=== PATIENT | male | born 1940 | race Caucasian/White ===

== ENCOUNTER → 2020-12-29 10:26 | Outpatient (CLI) | payer MEDICARE, OTHER, SELFPAY ==
--- NOTE | 2020-12-29 10:32 | STE_ITS ---
Version 2 Reason For Study: Chest Pain Stress Results Protocol: Eloy Protocol Maximum Predicted HR: 138 bpm Target HR: 117 bpm % Maximum Predicted HR: 91 % DurationHeart Rate Stage (mm:ss) (bpm) BP Comment Baseline 61 114/80No Chest Pain [facility]oy Protocol Stage I 3:00 86 124/76No Chest Pain Eloy Protocol Stage II 3:00 120 134/72No Chest Pain; Moderate Dyspnea Eloy Protocol Stage III 0:30 126 / No Chest Pain; Moderate Dyspnea Recovery 96 130/78No Chest Pain; No Dyspnea Stress Duration: 6:30 mm:ss Maximum Stress HR: 126 bpm METS: 8 Baseline Echocardiogram Findings The estimated ejection fraction is 55 %. post stress EF is 65%. Stress Echo Wall motion Data Resting WM Intermediate WM Stress WM Resting Wall Motion Wall Motion Stress No regional wall motion No regional wall motion abnormalities noted. abnormalities noted. EKG Data The baseline ECG displays normal sinus rhythm. No significant ischemic changes. Symptoms with Stress The patient experinced no chest pain . ECHO/Stress Test Echo w/o Contrast Interpretation Summary The estimated ejection fraction is 55 %. Stress echo is negative for stress induced CP or EKG or echocardiographic dalal es of ischemia Functional capacity is excellent for age Ordering Physician: Levar Tran Referring Physician: Alvina Castillo Performed By: Alicja Badillo, RDCS, RVT
== END ==
PROVIDERS: PCP Internal Medicine; Referring Provider Internal Medicine; Visit Provider Internal Medicine
DX: R07.9 Chest pain, unspecified (principal)
CPT/HCPCS: 93017; 93350

== ENCOUNTER 2021-09-17 14:48 | Emergency (ER) | payer MEDICARE, OTHER, SELFPAY ==
[2021-09-17] VITALS (7 sets, daily range): BP systolic 117–170; BP diastolic 85–103; PULSE 65–84; RESP 13–18; TEMP 36.3–36.9; O2SAT 96–98; BMI 25.1
--- NOTE | 2021-09-17 14:51 | NURSING ---
NO OLD EKGS
--- NOTE | 2021-09-17 15:08 | EKG12_ITS ---
Test Reason : CP Blood Pressure : / mmHG Vent. Rate : 067 BPM Atrial Rate : 067 BPM P-R Int : 176 ms QRS Dur : 082 ms QT Int : 404 ms P-R-T Axes : 081 -52 -13 degrees QTc Int : 426 ms Normal sinus rhythm with sinus arrhythmia Left anterior fascicular block Abnormal ECG Confirmed by IRINEO BERNARDO, CLEVELAND ([id number]), non linear editor WALKER ERAZO ([id number]) on 09/19/2021 9:20:19 AM Referred By: LIVIA Confirmed By:CLEVELAND CABELLO MD
--- NOTE | 2021-09-17 15:20 | RAD_ITS ---
STUDY: X-RAY CHEST REASON FOR EXAM: Male, 81 years old. Chest pain TECHNIQUE: Single AP portable view of the chest. COMPARISON: None. FINDINGS: There is a battery operated device overlying the left chest. The lungs are clear and expanded. There is no demonstrated pleural abnormality. There is mild to moderate cardiac enlargement. Normal mediastinum and michelle. Normal visualized pulmonary arteries. There is atherosclerotic calcification of the aortic arch with tortuosity. There are diffuse degenerative changes of the visualized thoracic spine. Normal visualized ribs, clavicles, and shoulders. There is no demonstrated abnormality of the visualized soft tissue structures of the upper abdomen. RAD/Chest 1 View (Portable) IMPRESSION: Cardiac enlargement no visualized focal infiltrate. Electronically Signed: Julieta Day MD at 15:48 EST ,
--- NOTE | 2021-09-17 15:36 | ED.VIS.CHEST ---
HPI History of Present Illness Chief Complaint: Chest Pain Informant: patient Onset/Context/Timing Onset: Weeks (2) Activity at onset: gradual Timing: Intermittent and Lasts (Few minutes) Quality: Positive for Tightness Location: Substernal Worsened By: - (Stress, anxiety) Relieved By: Nothing Associated Symptoms: Positive for Diaphoresis, Dyspnea, Lightheadedness and Palpitations; Negative for Nausea, Vomiting, Cough, Fever and Acid Reflux Narrative Narrative: Patient presents with chest pain that has been intermittent for the past 2 weeks. Patient states it only lasts a few minutes when it comes on. Patient states it is a tightness in the substernal area. Patient denies any radiation of the pain. Patient states it is worse when he starts to feel anxious. Patient states nothing makes it better. Daughter states that the patient has been caring for his at home and this has been more stressful for him. Patient admits to some diaphoresis and shortness of breath. Patient also admits to some lightheadedness and palpitations. Patient currently has a loop recorder in place and is scheduled to have that evaluated this week. CVD Risk Factors: Positive for Smoking (Former smoker); Negative for Hypertension, Diabetes, Hypercholesterolemia and Family History 1' </=55 PE Risk Factors: Negative for Recent Travel/Surgery, Recent Immobilization, Prior DVT or PE, Cancer and OCP + Smoking + >/=35 PFSH PFSH Medical History Trigeminal nerve disease Allergy/AdvReac Type Severity Reaction Status Date / Time No Known Allergies Allergy Verified 09/17/21 14:59 Social History Smoking Status: Never smoker ROS ROS ED Constitutional Constitutional ED: Denies chills or fever(s) Eyes Eyes: Denies blurry vision or change in vision ENT ENT ED: Denies rhinorrhea or sore throat Cardiovascular Cardiovascular: Reports chest pain and palpitations Respiratory/Chest Respiratory/Chest: Reports dyspnea; Denies cough Gastrointestinal Gastrointestinal: Denies abdominal pain, nausea or vomiting Genitourinary Genitourinary ED: Denies dysuria or hematuria Musculoskeletal Musculoskeletal: Denies back pain or neck pain Integumentary Denies abscess or rash Neurologic Neurologic: Reports headache(s); Denies weakness Allergic/Immunologic Allergic/Immunologic ED: Denies mouth swelling or urticaria EXAM Physical Exam Const Vital Signs: 09/17/21 14:52 09/17/21 15:18 09/17/21 16:00 Temperature 97.4 F L Temperature Source Temporal Pulse Rate 72 65 Respiratory Rate 16 13 Blood Pressure 170/91 H 157/96 H Blood Pressure Mean 117 116 Pulse Ox 96 98 Oxygen Delivery Method Room Air Room Air Room Air 09/17/21 17:55 09/17/21 18:57 09/17/21 18:58 Temperature Temperature Source Pulse Rate 66 66 70 Respiratory Rate 18 14 Blood Pressure 145/93 H 163/97 H 163/97 H Blood Pressure Mean 110 119 Pulse Ox 98 98 Oxygen Delivery Method Room Air Room Air Positive well nourished and well developed General Appearance ED: well developed and NAD HEENT normocephalic and atraumatic Eyes PERRL and EOMs intact bilaterally Neck supple and no JVD Chest Wall palpation of chest normal Resp normal respiratory effort and clear to auscultation bilaterally Effort and Inspection: Negative for respiratory distress Cardio regular rate, regular rhythm and no murmurs GI normal to inspection, nondistended, normoactive bowel sounds, soft to palpation, non-tender and non-distended Extremity normal to inspection General Extremety ED: Negative for edema or tenderness General Extremity: Negative for edema Neuro oriented x3, CN's II-XII intact bilaterally and no sensory deficits noted Sensorium / Orientation: awake and alert Motor Exam: strength 5/5 throughout Psych mental status grossly normal Heart Score History: Slightly/Non-Suspicious ECG: Normal Age: >/= 65 years Risk Factors: No Risk Factors Troponin: >1 - <3 Normal Limit Score: 3 MDM MDM MDM Narrative Medical decision making narrative: Patient was given aspirin here. EKG was obtained. On my interpretation, it showed a normal sinus rhythm with a rate of 67. OR interval, QRS interval, and QTc intervals were all normal. [place] was normal. There are no acute ST or T wave changes. Portable 1 view chest x-ray was obtained. On my interpretation, lung dia are clear. There is mild cardiomegaly. Bony thorax is normal. There is no acute process noted. Radiologist also interpreted the x-ray and agrees. CBC was obtained and was within normal limits. Basic metabolic profile was obtained and was within normal limits. Initial high-sensitivity troponin was 114. 2-hour repeat high-sensitivity troponin was 92. Patient initially refused to sublingual nitroglycerin because of the headache he knew it would cause. Patient is agreeable to take a sublingual nitroglycerin tablet. Patient was also given a dose of Tylenol. Patient has a HEART score of 3. Patient was advised that this is low risk for acute cardiac event. Patient has an appoint with his primary care physician this week to go over his loop recorder results. Patient was instructed to keep this appointment. Patient was instructed to return if worse in any way. Patient and family understood and were agreeable with the plan. All questions were answered. Lab Data Labs: Laboratory Results - last 24 hr 09/17/21 09/17/21 09/17/21 15:31 15:31 18:00 WBC 5.6 RBC 4.83 Hgb 15.3 Hct 44.9 MCV 93.0 MCH 31.7 MCHC 34.1 RDW Std Deviation 43.0 RDW Coeff of Jagjit 12.6 Plt Count 187 MPV 10.0 Immature Gran % (Auto) 0.200 Neut % (Auto) 52.6 Lymph % (Auto) 32.4 [place] % (Auto) 11.8 H Eos % (Auto) 2.5 Baso % (Auto) 0.5 Absolute Neuts (auto) 2.9 Absolute Lymphs (auto) 1.81 Nucleated RBC % 0 Sodium 138 Potassium 4.0 Chloride 105 Carbon Dioxide 29.0 Anion Gap 4 L BUN 16 Creatinine 0.85 Estim Creat Clear Calc 65.85 Est GFR (MDRD) Af Amer 110 Est GFR (MDRD) Non-Af 91 BUN/Creatinine Ratio 18.8 Glucose 103 Calcium 9.7 Troponin I High Sens 114 H 92 H Radiography Chest X-Ray - ED: 1 View, Read by ED Physician, Read by Radiologist, No Acute Disease and Cardiomegaly Diagnostic Testing: Clinical Impression(s) from Imaging Studies Chest X-Ray 09/17/21 15:20 IMPRESSION: Cardiac enlargement no visualized focal infiltrate. Electronically Signed: Julieta Day MD at 15:48 EST , EKG Initial EKG: Attestation: I personally reviewed and interpreted this EKG as follows: Interpretation: Sinus Rhythm (67), No Acute Injury Pattern and LAFB Discharge Plan Triage Chief Complaint: Chest Pain ED Provider: Titus Dugan Dx/Rx/DC Orders Clinical Impression: Chest pain Instructions: ED Chest Pain, Uncertain Cause Primary Care Provider: Levar Tran Referrals: Levar Tran MD [Primary Care Provider] - 3-5 Days Disposition Disposition: Home, Self Care
[2021-09-17 15:41] LABS: Absolute Lymphocyte Count 1.81 X10^3/uL (0.83-4.51); Absolute Neutrophil Count 2.9 X10^3/uL (2.0-7.7); Basophil# 0.03 X10^3/uL; Basophil% 0.5 % (0-1); Eosinophil# 0.14 X10^3/uL; Eosinophils% 2.5 % (0-5); Hematocrit 44.9 % (40-54); Hemoglobin 15.3 g/dL (13.0-16.5); Lymphocyte # 1.81 X10^3/ul (0.83-4.51); Lymphocyte % 32.4 % (19-41); Mean Corp Hgb Conc 34.1 g/dL (32-36); Mean Corpuscular Hgb 31.7 pg (27.0-32.0); Monocyte# 0.66 X10^3/uL; Monocyte% 11.8 % (0-10); NRBC Flagged by Analyzer 0 % (0-5); Neutrophil # 2.93 X10^3/uL (2.7-7.7); Neutrophil % 52.6 % (47-70); Platelet Count 187 K/mm3 (150-450); RBC Distribution Width CV 12.6 % (11.6-14.6); Red Blood Count 4.83 M/mm3 (4.6-6.2); White Blood Count 5.6 K/mm3 (4.4-11.0)
[2021-09-17] MEDS: Aspirin 81 MG TAB.CHEW 324 MG PO (15:47)
[2021-09-17 15:58] LABS: Anion Gap 4 (5-15); BUN 16 mg/dL (7-18); BUN/Creat Ratio 18.8 RATIO (10-20); Calcium,Total 9.7 mg/dL (8.5-10.1); Chloride 105 mmol/L (98-107); Creatinine, Serum 0.85 mg/dL (0.70-1.30); EST Glomerular Filtration Rate 91 mL/min (>60); Est Glom Filt Rate - Afr Amer 110 mL/min (>60); Estimated Creatinine Clearance 65.85 ml/min; Glucose 103 mg/dL (74-106); Sodium Level 138 mmol/L (136-145); Troponin-I HS 114 pg/mL (3.0-78.0)
[2021-09-17 18:27] LABS: Troponin-I HS 92 pg/mL (3.0-78.0)
[2021-09-17] MEDS: Acetaminophen 500 MG Tablet 1000 MG PO (18:57)
[2021-09-17] MEDS: Nitroglycerin SL (ED/IMG/CATH) 0.4 MG TABLET SL ×2 (18:58→19:07)
== END 2021-09-17 19:24 | disposition home or self-care (01) ==
PROVIDERS: Emergency Provider Emergency Medicine; PCP Internal Medicine; Visit Provider Emergency Medicine
DX: R07.89 Other chest pain (principal); F17.200 Nicotine dependence, unspecified, uncomplicated; F41.9 Anxiety disorder, unspecified; R51.9 Headache, unspecified; R61 Generalized hyperhidrosis; R06.02 Shortness of breath; R42 Dizziness and giddiness; R00.2 Palpitations; Z95.818 Presence of other cardiac implants and grafts
CPT/HCPCS: 71045; 80048; 84484; 85025; 93005; 99285

== ENCOUNTER 2021-09-27 12:08 | Outpatient (CLI) | payer MEDICARE, OTHER, SELFPAY ==
[2021-09-27 12:36] LABS: Absolute Lymphocyte Count 1.56 X10^3/uL (0.83-4.51); Absolute Neutrophil Count 4.2 X10^3/uL (2.0-7.7); Basophil# 0.03 X10^3/uL; Basophil% 0.5 % (0-1); Eosinophil# 0.09 X10^3/uL; Eosinophils% 1.4 % (0-5); Hematocrit 44.3 % (40-54); Hemoglobin 15.3 g/dL (13.0-16.5); Lymphocyte # 1.56 X10^3/ul (0.83-4.51); Lymphocyte % 23.8 % (19-41); Mean Corp Hgb Conc 34.5 g/dL (32-36); Mean Corpuscular Hgb 31.9 pg (27.0-32.0); Mean Corpuscular Volume 92.5 fL (80-94); Mean Platelet Vol. 9.7 fl (6.2-12.0); Monocyte# 0.62 X10^3/uL; Monocyte% 9.5 % (0-10); NRBC Flagged by Analyzer 0 % (0-5); Neutrophil # 4.23 X10^3/uL (2.7-7.7); Neutrophil % 64.5 % (47-70); Platelet Count 187 K/mm3 (150-450); RBC Distribution Width CV 12.3 % (11.6-14.6); RBC Distribution Width SD 41.9 fl (35.1-43.9); Red Blood Count 4.79 M/mm3 (4.6-6.2); White Blood Count 6.6 K/mm3 (4.4-11.0)
[2021-09-27 13:11] LABS: Anion Gap 3 (5-15); BUN 11 mg/dL (7-18); BUN/Creat Ratio 11.5 RATIO (10-20); Calcium,Total 9.4 mg/dL (8.5-10.1); Chloride 103 mmol/L (98-107); Creatinine, Serum 0.95 mg/dL (0.70-1.30); EST Glomerular Filtration Rate 80 mL/min (>60); Est Glom Filt Rate - Afr Amer 97 mL/min (>60); Glucose 94 mg/dL (74-106); Sodium Level 136 mmol/L (136-145); Thyroid Stim Hormone (TSH) 2.51 uIU/mL (0.358-3.74)
== END 2021-09-27 23:59 | disposition home or self-care (01) ==
LOC: LAB 12:10
PROVIDERS: PCP Internal Medicine; Referring Provider Internal Medicine Cardiovascular Disease; Visit Provider Internal Medicine Cardiovascular Disease
DX: R07.9 Chest pain, unspecified (principal); R00.2 Palpitations
CPT/HCPCS: 36415; 80048; 84443; 85025

== ENCOUNTER 2021-10-03 06:50 | Day surgery (SDC) | payer MEDICARE, OTHER, SELFPAY ==
[2021-10-02 09:48] VITALS: BMI 25.5
--- NOTE | 2021-10-03 09:07 | CL.D_ITS ---
Patient Name: MONSE SOTELO Study Date: 10/03/2021 Performing: Ángel Barrientos MD Ht: 68.89 inches 175 cm : 1940 Wt: 171.96 lbs 78 kg Age: 81 Gender: male BSA: 1.94 PROCEDURE(S) PERFORMED DC01-([id number])LHC/COR/LV CLINICAL PROFILE AND INDICATIONS Indications: Suspected CAD Heart Failure: None Stress/Imaging Stress/Image Study Performed: No CAD Presentations: Symptom unlikely to be ischemic. CONCLUSIONS Non obstructive coronary arteries Normal LV size, wall motion,and systolic function RECOMMENDATIONS Medical therapy DESCRIPTION OF PROCEDURE The patient arrived to the procedure lab. The risks and benefits of the procedure as well as a full d escription of our services here and current unavailability of surgical backup were fully explained to the patient and/or their significant other prior to the catheterization. The Timeout was completed, verifying the correct patient and procedure. The patient's procedural site was prepped and draped in the usual fashion. Local anesthetic was given subcutaneously to right radial region with Lidocaine 2% . Using a modified Seldinger technique, arterial access was obtained via the right radial artery, a 6 Fr sheath was inserted. Left Coronary Artery selective angiography was performed in multiple views u sing a 5 Fr. 4.0 Junction catheter. Right Coronary Artery selective angiography was then performed in mu ltiple views using a 5 Fr. 4.0 Junction catheter. Left Ventriculography was performed in SPIVEY projection using a 5 Fr. Pigtail catheter. LV to AO pullback pressures were then recorded.The arterial sheath was pulled and a TR Band was applied for hemostasis w/ 10ml air CORONARY ANGIOGRAPHY DOMINANCE: Right Dominant LEFT HEART ASSESSMENT Left Ventricular Ejection Fraction: by LV Gram 60 % Normal LV wall motion Normal Left Ventricular systolic function LEFT MAIN: Angiographically normal LEFT ANTERIOR DESCENDING ARTERY: Mild luminal irregularities less than 30% CIRCUMFLEX ARTERY: Mild luminal irregularities less than 30% RIGHT CORONARY ARTERY: Mild luminal irregularities less than 30% COMPLICATIONS No Complications PROCEDURE MEDICATIONS Versed 1 mg IV Fentanyl 50 mcg IV Versed 1 mg IV Oxygen: 2 L/min via nasal cannula Heparin given IA 10/03/2021 08:22:44 SUMMARY OF HEMODYNAMIC DATA Time AIR REST ECG 07:10:11 Art 137/64 (89) 07:53:39 AO 121/56 (86) SA 08:24:18 LV 106/0, 3 08:31:43 LV 104/0, 2 08:31:49 LV 99/4, 8 08:32:38 LV 103/1, 10 08:32:44 LVp 113/1, 11 08:32:53 AOp 117/52 (80) 08:32:58 Signed By Ángel Barrientos MD On 10/03/2021 09:06:23 Ángel Barrientos MD
== END 2021-10-03 23:59 | disposition home or self-care (01) ==
LOC: CLSP 06:52
PROVIDERS: PCP Internal Medicine; Referring Provider Internal Medicine Cardiovascular Disease; Visit Provider Internal Medicine Cardiovascular Disease
DX: R07.9 Chest pain, unspecified (principal); Z87.891 Personal history of nicotine dependence; R00.2 Palpitations
CPT/HCPCS: 93458; 99152; 99153; J7040; C1769; C1894; Q9967

== ENCOUNTER → 2021-12-27 | Outpatient (CLI) | payer MEDICARE, OTHER, SELFPAY ==
[2021-12-27 13:24] LABS: Absolute Lymphocyte Count 1.79 X10^3/uL (0.83-4.51); Absolute Neutrophil Count 2.9 X10^3/uL (2.0-7.7); Basophil# 0.03 X10^3/uL; Basophil% 0.5 % (0-1); Eosinophil# 0.14 X10^3/uL; Eosinophils% 2.5 % (0-5); Hematocrit 40.2 % (40-54); Hemoglobin 13.4 g/dL (13.0-16.5); Lymphocyte # 1.79 X10^3/ul (0.83-4.51); Lymphocyte % 32.3 % (19-41); Mean Corp Hgb Conc 33.3 g/dL (32-36); Mean Corpuscular Hgb 31.4 pg (27.0-32.0); Mean Corpuscular Volume 94.1 fL (80-94); Mean Platelet Vol. 9.9 fl (6.2-12.0); Monocyte# 0.64 X10^3/uL; Monocyte% 11.5 % (0-10); NRBC Flagged by Analyzer 0 % (0-5); Neutrophil # 2.94 X10^3/uL (2.7-7.7); Platelet Count 153 K/mm3 (150-450); RBC Distribution Width CV 13.2 % (11.6-14.6); RBC Distribution Width SD 45.4 fl (35.1-43.9); Red Blood Count 4.27 M/mm3 (4.6-6.2); White Blood Count 5.6 K/mm3 (4.4-11.0)
[2021-12-27 13:42] LABS: Anion Gap 6 (5-15); BUN 17 mg/dL (7-18); BUN/Creat Ratio 20.5 RATIO (10-20); Calcium,Total 8.7 mg/dL (8.5-10.1); Chloride 107 mmol/L (98-107); Creatinine, Serum 0.83 mg/dL (0.70-1.30); EST Glomerular Filtration Rate 94 mL/min (>60); Est Glom Filt Rate - Afr Amer 114 mL/min (>60); Glucose 86 mg/dL (74-106); Sodium Level 139 mmol/L (136-145)
== END | disposition home or self-care (01) ==
LOC: LAB 13:01
PROVIDERS: PCP Internal Medicine; Referring Provider Nurse Practitioner Gerontology; Visit Provider Nurse Practitioner Gerontology
DX: R06.00 Dyspnea, unspecified (principal)
CPT/HCPCS: 36415; 80048; 83880; 85025

== ENCOUNTER → 2022-01-23 | Outpatient (CLI) | payer MEDICARE, OTHER, SELFPAY ==
--- NOTE | 2022-01-23 12:38 | ECHOD_ITS ---
Reason For Study: Dyspnea/SOB Procedure This was a 2D Doppler, Color Flow transthoracic echocardiogram. Exam performed in department. Left Ventricle Normal LV size. Left ventricular systolic function is normal. The estimated ejection fraction is 60 %. Stage 1 diastolic dysfunction. No regional wall motion abnormalities noted. Right Ventricle Normal RV size. Normal systolic function. Atria The left atrium is mildly enlarged. The right atrium is mildly enlarged. Mitral Valve Normal mitral valve. Tricuspid Valve Normal tricuspid valve. Mild tricuspid valve insufficiency. Pulmonary artery systolic pressure is 23 mmHg. Aortic Valve Trisinus/trileaflet aortic valve. Mild (1+) aortic valve insufficiency. Pulmonic Valve Normal pulmonic valve. Great Vessels Normal aortic root. The pulmonary artery is normal size. Normal inferior vena cava. Pericardium/Pleural No pericardial effusion. MMode/2D Measurements & Calculations LVIDd: 5.1 cm IVSd: 1.0 cm Ao root diam: 3.7 cm LVIDs: 3.0 cm LVPWd: 0.75 cm LA dimension: 4.2 cm RVDd: 3.9 cm FS: 40.7 % LAV(MOD-bp): 84.8 ml LA A4 area: 24.4 cm2 RA A4 area: 23.1 cm2 LAV(MOD-bp) Indexed: 44.0 ml/m2 LAV(MOD-sp2): 97.7 ml LAV(MOD-sp4): 74.2 ml Time Measurements MV dec time: 0.50 sec Doppler Measurements & Calculations MV E max osvaldo: 62.9 cm/sec Med Peak E' Osvaldo: 5.9 cm/sec MV V2 max: 78.6 cm/sec MV A max osvaldo: 77.2 cm/sec E/E' med: 10.7 MV max P.5 mmHg MV E/A: 0.81 MV V2 mean: 41.7 cm/sec MV mean P.82 mmHg MV V2 VTI: 35.7 cm MV P1/2t max osvaldo: 64.8 cm/sec Ao V2 max: 124.1 cm/sec AI max osvaldo: 397.1 cm/sec MV P1/2t: 177.7 msec Ao max P.2 mmHg AI max P.4 mmHg MV dec slope: 106.8 cm/sec2 AI dec slope: 143.2 cm/sec2 MVA(P1/2t): 1.2 cm2 AI P1/2t: 812.1 msec LV V1 max: 70.2 cm/sec MR max osvaldo: 581.5 cm/sec PA V2 max: 107.1 cm/sec LV V1 max P.0 mmHg MR max P.3 mmHg PI end-d osvaldo: 92.8 cm/sec TR max osvaldo: 225.6 cm/sec TR max P.6 mmHg ECHO/Echo Complete Interpretation Summary Normal LV size. Left ventricular systolic function is normal. The estimated ejection fraction is 60 %. The left atrium is mildly enlarged. The right atrium is mildly enlarged. Stage 1 diastolic dysfunction. Mild (1+) aortic valve insufficiency. Ordering Physician: Agnes Leonardo Referring Physician: Levar Tran M.D. Performed By: Akash Motley RCS
== END | disposition home or self-care (01) ==
LOC: CVS 12:37
PROVIDERS: PCP Internal Medicine; Referring Provider Nurse Practitioner Gerontology; Visit Provider Nurse Practitioner Gerontology
DX: R06.00 Dyspnea, unspecified (principal)
CPT/HCPCS: 93306

== ENCOUNTER 2022-06-18 13:56 | Outpatient (CLI) | payer MEDICARE, OTHER, SELFPAY ==
--- NOTE | 2022-06-18 14:02 | VDLE_ITS ---
Reason For Study: Swelling RIGHT LEFT CFV is compressible, spontaneous, phasic, GSV is normal. competent and demonstrates normal CFV is compressible, spontaneous, phasic, augmentation. competent, and demonstrates normal Procedure augmentation. This is a venous duplex using B-mode, color FV is compressible, spontaneous, phasic, flow and spectral Doppler. competent and demonstrates normal Exam performed in department. augmentation. A preliminary report was called and/or faxed POP V is compressible, spontaneous, phasic, to [place]. competent and demonstrates normal augmentation. T/P Trunk is compressible. PTV is compressible. LT PerV is compressible. VL/Venous Duplex US, Unilateral Interpretation Summary Deep veins of the left lower extremity are patent and compressible segmentally. There is no evidence of left lower extremity deep vein thrombosis. The left great saphenous vein reilly ears patent and compressible segmentally. Ordering Physician: Agnes Leonardo Referring Physician: Levar Tran M.D. Performed By: Ana Laura Le RVT
--- NOTE | 2022-06-18 14:35 | RAD_ITS ---
STUDY: XR Ankle Min 3 Views REASON FOR EXAM: Male, 81 years old. ANKLE PAIN TECHNIQUE: XR Ankle Min 3 Views LEFT COMPARISON: None. FINDINGS: Normal visualized distal tibia and fibula. Normal medial and lateral malleoli. Normal tibiotalar articulation and ankle mortise. Vascular calcifications. The visualized subtalar, talonavicular, calcaneocuboid and tarsal articulations are normal. There is a plantar calcaneal spur. There is soft tissue swelling around the ankle. RAD/Ankle min 3 Views IMPRESSION: There is soft tissue swelling. Electronically Signed: Aidan Fonseca MD at 14:56 EST ,
== END 2022-06-18 23:59 | disposition home or self-care (01) ==
PROVIDERS: PCP Internal Medicine; Referring Provider Nurse Practitioner Gerontology; Visit Provider Nurse Practitioner Gerontology
DX: R60.0 Localized edema (principal); M25.572 Pain in left ankle and joints of left foot; M77.30 Calcaneal spur, unspecified foot
CPT/HCPCS: 73610; 93971

== ENCOUNTER → 2022-06-20 | Outpatient (CLI) | payer MEDICARE, OTHER, SELFPAY ==
[2022-06-20 17:14] LABS: Erythrocyte Sedimentation Rate 9 mm/hr (0-20)
[2022-06-20 17:48] LABS: CRP < 2.90 mg/L (0.0-3.0)
== END | disposition home or self-care (01) ==
LOC: LABSPEC 16:40
PROVIDERS: PCP Internal Medicine; Visit Provider Nurse Practitioner
DX: M25.572 Pain in left ankle and joints of left foot (principal); M25.472 Effusion, left ankle; M79.662 Pain in left lower leg; M79.89 Other specified soft tissue disorders
CPT/HCPCS: 85652; 86140

== ENCOUNTER → 2022-07-03 | Outpatient (CLI) | payer MEDICARE, OTHER, SELFPAY ==
--- NOTE | 2022-07-03 12:58 | CT_ITS ---
STUDY: CT SCAN LOWER EXTREMITY LEFT REASON FOR EXAM: Male, 81 years old. PROSTATE TUMOR / LEFT LOWER LEG PAIN RADIATION DOSAGE (If Supplied By Facility): CTDIvol = ( 15.46 ) mGy, DLP = ( 1880.05 ) mGycm. Individualized dose optimization techniques were used for this CT.? TECHNIQUE: Multiple axial tomographic images of the left lower extremity were obtained following IV contrast administration. Coronal and sagittal reconstruction was obtained as well. COMPARISON: None. FINDINGS: There is evidence of a multiple tiny lytic lesions involving the proximal, mid and distal portions of the tibia. There is evidence of a cortical destruction and penetration. Metastatic disease should be ruled out. No significant soft tissue mass is seen. There is evidence of a varicosities in the subcutaneous tissues of the leg as well as increased markings in the subcutaneous fat in the distal portion of the lower extremity extending into the region of the ankle. CT/Extremity Lower WITH Contrast IMPRESSION: Extensive moth-eaten appearance of the tibia with cortical destruction and penetration as described. Varicosities in the subcutaneous tissues. Electronically Signed: Irvin Owen MD at 14:15 EST ,
[2022-07-04 08:36] LABS: CREATININE FINGERSTICK < 0.9 mg/dL (0.70-1.30); EGFR FINGERSTICK > 60.0000 mL/min (>60)
== END | disposition home or self-care (01) ==
PROVIDERS: PCP Internal Medicine; Visit Provider Nurse Practitioner
DX: D49.59 Neoplasm of unspecified behavior of other genitourinary organ (principal); M79.605 Pain in left leg; M89.9 Disorder of bone, unspecified
CPT/HCPCS: 73701; Q9967

== ENCOUNTER 2022-07-04 13:29 | Observation (INO) | payer MEDICARE, OTHER, SELFPAY ==
[2022-07-04] VITALS (15 sets, daily range): BP systolic 104–148; BP diastolic 58–88; PULSE 51–65; RESP 13–18; TEMP 36.2–37.7; O2SAT 92–100; BMI 24.9
--- NOTE | 2022-07-04 | IMM_PTH ---
PATIENT: MONSE SOTELO LOC: MS3 U#:[id number] AGE/SX: 81/M ROOM: MS306 RE07/04/[address]: Dr. Michael Leach MD : 1940 BED: 1 DIS: 07/05/2022 SPEC #: [id number] RECD: 07/06/22 13:23 STATUS: VINOD RERadha #: [id number] RADHA: 07/04/22 00:[address]: Michale Leach DEPT: IMMUNOHISTOCHEMISTRY RECD BY: Haydee Singh ENTERED: 07/06/22 13:24 SP TYPE: IMMUNO OTHR DR: Dr. Levar Tran MD Tissues: B - Urinary bladder, NOS Procedures: CD31 (add) CK20 (add) CK5-6 (add) CK7 (add) CK8 (add) FACTOR VIII (add) Pankeratin (initial) P40 (add) CD44 (add) PSAP (add) PHYSICIAN & [address] [address] SPECIMEN INFORMATION: Tissue Source: B ? Prostate and bladder tumor Clinical Info: Bladder mass, elevated PSA Specimen Number: [id number] CPT code: 50425, 26889 x9 METHODOLOGY: Deparaffinized sections of prefer/formalin-fixed tissue or PAP/DQ stained slides are incubated with monoclonal/polyclonal antibodies/oligonucleotide probes. Localization is made via biotin free immunoperoxidase method. Appropriate controls are performed and reacted as expected. Results on target cell population are indicated in the following table: RESULTS: ANTIBODY / CLONE RESULT Block B AE1-3 (AE1/AE3/PCK26) positive CK7 (OV-TL12/30) negative CK8 (98ohkoU82) positive CK20 (KS20.8) negative CD31 (DEMOND/70A) positive Factor VIII (R Ag) positive PSAP (PASE/4LJ) negative anti-CD44 (SP37) negative CK5-6 (D5 & 1684) negative P40 (BC28) negative These tests were developed and their performance characteristics determined by [facility]. They may not have been cleared or approved by the U.S. Food and Drug Administration. The FDA has determined that such clearance or approval is not necessary. The above immunohistochemical/dualISH markers are ordered and reviewed by the Pathologist. INTERPRETATION: B. Prostate and bladder tumor, biopsy: Invasive urothelilal carcinoma with lymph-vascular invasion. See comment. RAMILA:rekha 07/10/2022 Comment: IHC profile is nondiagnostic for bladder or prostate primary; however, morphology favors bladder primary.
[2022-07-04] MEDS: Lactated Ringers 1,000 ML 15 ML IV (09:52)
--- NOTE | 2022-07-04 11:05 | PROS_PTH ---
PATIENT: MONSE SOTELO LOC: MS3 U#:[id number] AGE/SX: 81/M [place]OM: [facility] [place] RE07/04/[address]: Dr. Michael Leach MD : 1940 BED: 1 DIS: 07/05/2022 SPEC #: [id number] RECD: 07/04/22 14:08 STATUS: VINOD RANKIN #: [id number] RADHA: 07/04/22 11:[address]: Michael Leach DEPT: SURGICAL PATHOLOGY RECD BY: Arlet Morrison ENTERED: 07/05/22 12:32 SP TYPE: TURP OTHR DR: Dr. Levar Tran MD Tissues: A - Prostate, NOS B - Urinary bladder, NOS Procedures: Surgery Specimen Level IV Surgery Specimen Level V HEADER OPERATION: Transurethral resection prostate, Transurethral resection bladder PRE-OP DIAGNOSIS: Bladder mass, elevated PSA TISSUE SUBMITTED: A ? Prostate biopsy, B ? Prostate and bladder tumor MICROSCOPIC DIAGNOSIS A. Prostate, core biopsy: Prostatic tissue, negative for malignancy. Chronic inflammation. See comment. B. Prostate and bladder tumor, transurethral resection: Invasive urothelial carcinoma. See cancer summary in the comment section. SJ:rg 07/06/2022 COMMENT A. The specimen also shows seminal vesicle tissue. B. PROSTATE AND BLADDER CANCER (TUR) SUMMARY: Procedure - transurethral resection of bladder and prostate Tumor site ? not specified Histologic type ? invasive urothelial carcinoma. Associated epithelial lesson ? none identified Histologic grade - urothelial carcinoma high grade 2-3/3 Tumor configuration - Papillary and invasive Muscularis propria presence - muscularis propria (detrusor muscle) is present and involved by tumor. Lymphvascular invasion ? present Tumor extension - Tumor invades muscularis propria Urothelial carcinoma also involves prostatic stoma in prostatic chips sampled by transurethral resection of bladder and prostate. Additional pathologic findings - chronic inflammation. The above summary is in compliance with [employer] [place] Pathology (CAP) Cancer Protocols Checklist and [place] Joint Committee on Cancer (AJCC), Staging Manual, 8th Ed. Immunohistochemistry ([id number]) supports the diagnosis of lymph-vascular invasion. IHC profile is non-diagnostic for prostate or bladder primary. However, tumor morphology favors urothelial primary. MICROSCOPIC DESCRIPTION Slides are reviewed. GROSS DESCRIPTION A - Received is one container labeled with the patient's name and designated prostate biopsy. The specimen consists of six elongated fragments of light mack-white soft tissue each measuring 0.4 to 0.8 cm in length and 0.1 cm in diameter. The entire specimen is submitted in two cassettes. B - Received in fixative is one container labeled with the patient's name and designated prostate and bladder tumor. The specimen consists of multiple irregular fragments of mack, indurated tissue that in aggregate measure 5 x 3 x 0.6 cm. The entire specimen is submitted in four cassettes. / SJ:rg 07/05/2022 TC:0 [facility]: [id number], [id number] ADDENDUM ADDENDUM ADDENDUM ADDENDUM ADDENDUM ADDENDUM ADDENDUM ADDENDUM ADDENDUM ADDENDUM ADDENDUM ADDENDUM ADDENDUM ADDENDUM ADDENDUM ADDENDUM ADDENDUM ADDENDUM 08/14/2022 08:41 ADDENDUM 08/14/2022 08:41 ADDENDUM 08/14/2022 08:41 ADDENDUM 08/14/2022 08:41 ADDENDUM 08/14/2022 08:41 [facility] TUMOR NGS REPORT FROM [employer] RESULT SUMMARY: Abnormal IMMUNOTHERAPY BIOMARKERS: Tumor Mutation [place]: Low (1.6 Mutations / MB) Microsatellite Instability: MSI Negative (2.42%) PERTINENT NEGATIVE RESULTS: The following genes are NEGATIVE for clinically relevant mutations. Mutational hotspots and surrounding exonic regions were interrogated for DNA level point mutations and indels (fusions not assayed). AKT1, APC, MAURY, BRAF, BRCA1, BRCA2, CDH1, CDKN2A, CTNNB1, EGFR, EPCAM, ERBB2, ERBB4, FBXW7, FGFR1, FGFR2, FGFR3, GNA11, GNAQ, GNAS, HRAS, IDH1, IDH2, KDR, KIT, KRAS, MEN1, MET, MLH1, MSH2, MSH6, NRAS, PDGFRA, PIK3CA, PMS2, POLE, PTEN, PTPN11, RB1, RET, SMAD4, SMO, STK11, TERT, TP53, TSC1, TSC2, VHL Please see complete report in e-chart or EMR
[2022-07-04] MEDS: Cefazolin 2 GM in 0.9% Normal Saline 100 ML IV (12:42)
[2022-07-04] MEDS: 0.9% Normal Saline 1,000 ML 125 ML IV ×2 (13:30→21:22)
--- NOTE | 2022-07-04 13:36 | DCINST_ITS ---
Discharge Instructions Diet Discharge Diet: No restrictions, Light diet - advance as tolerated and Soft diet Activity Discharge Activity: Return to Normal Activity Follow Up Care Please Follow Up With: Michael Leach MD When: call for appt. Test Results: Test results from this visit will be discussed in further detail at your follow- up appointment, if applicable. Discharge Plan Admission Primary Reason for Your Visit: prostate biopsy, tur bladder tumor and prostate Attending Provider: Michael Leach Primary Care Provider: Levar Tran Discharge Orders/Prescriptions Prescriptions: New ciprofloxacin HCl [Cipro] 500 mg tablet 500 mg PO BID Qty: 10 0RF Continued carboxymethylcellulose-glycern 0.5-0.9 % drops 1 drp ophthalmic (eye) PRN PRN (Reason: Dry Eye(S)) Label Comments: 1 drop into both eyes as directed sertraline [Zoloft] 25 mg tablet 25 mg PO DAILY metoprolol succinate 25 mg tablet extended release 24 hr 25 mg PO DAILY Qty: 30 11RF isosorbide mononitrate 30 mg tablet extended release 24 hr 30 mg PO DAILY Qty: 30 11RF ibuprofen 600 mg Tablet 600 mg PO Q6H PRN (Reason: Pain) (DME) Handicap Parking Placard See Rx Instructions .Route .MEDSUPPLY Qty: 1 0RF Rx Instructions: As directed Discontinued aspirin [Adult Aspirin Regimen] 81 mg tablet,delayed release (DR/EC) 81 mg PO DAILY Referrals / Follow Up: Michael Leach MD [Med Staff - Active Staff] - Levar Tran MD [Primary Care Provider] - Disposition Disposition (needs filled in before D/C Order can be placed): Home, Self Care
--- NOTE | 2022-07-04 13:36 | HP.PCM_ITS ---
HPI - General HPI Narrative MONSE SOTELO, is a 81 M who presents presents for prostate biopsy and transurethral resection of prostate and a bladder tumor PFSH Medical History (Updated 06/29/22 @ 11:41 by Sangeeta Sherman) Ambulates with cane Anxiety Bladder disease Cardiology follow-up encounter Depression Former smoker History of echocardiogram History of edema History of pain when walking History of stress test Hypertension Loss of hearing Nonobstructive atherosclerosis of coronary artery Prostate disease Shortness of breath on exertion Trigeminal nerve disease Wears glasses Home Medications carboxymethylcellulose 0.5 %-glycerin 0.9 % eye drops 1 drp ophthalmic (eye) PRN PRN Dry Eye(S) 09/26/21 [History Last Taken Unknown] sertraline 25 mg tablet (Zoloft) 25 mg PO DAILY 09/26/21 [History Last Taken Unknown] Handicap Parking Placard #1 ea 06/18/22 [Rx Last Taken Unknown] isosorbide mononitrate 30 mg tablet,extended release 24 hr 30 mg PO DAILY #30 tabs 06/18/22 [Rx Last Taken 07/04/22 07:00] metoprolol succinate 25 mg tablet,extended release 24 hr 25 mg PO DAILY #30 tabs 06/18/22 [Rx Last Taken 07/04/22 07:00] ibuprofen 600 mg tablet 600 mg PO Q6H PRN Pain 06/29/22 [History Last Taken Unknown] ciprofloxacin HCl 500 mg tablet (Cipro) 500 mg PO BID #10 tabs 07/04/22 [Rx Last Taken Unknown] Allergy/AdvReac Type Severity Reaction Status Date / Time No Known Allergies Allergy Verified 07/04/22 09:51 Family History (Reviewed 06/18/22 @ 13:30 by Agnes Leonardo CERTIFIED OPHTHALMIC ASSISTANT, CERTIFIED OPHTHALMIC ASSISTANT-C) Sister Heart disease Surgical History (Updated 06/29/22 @ 11:41 by Sangeeta Sherman) History of left heart catheterization (10/03/21) Hx of colonoscopy Hx of left cataract extraction Hx of right cataract extraction Social History (Reviewed 06/18/22 @ 13:30 by Agnes Leonardo CERTIFIED OPHTHALMIC ASSISTANT, CERTIFIED OPHTHALMIC ASSISTANT-C) Smoking Status: Former smoker quit date: 07/15/82 pack-years: 25 alcohol intake: current alcohol intake frequency: holidays/special occasions only Alcohol type: beer caffeine: Yes Type: coffee Number of servings: 2 Vital Signs Vital Signs Vital Signs: 07/04/22 09:53 07/04/22 09:53 Temperature 97.5 F L Temperature Source Temporal Pulse Rate 55 L Respiratory Rate 18 Respiratory Pattern Normal Blood Pressure 111/68 Blood Pressure Mean 82 Blood Pressure Source Monitor Blood Pressure Position Semi-Fowlers Blood Pressure Location Left Arm Pulse Ox 99 Oxygen Delivery Method Room Air Weight Weight: 76.657 kg Body Mass Index (BMI) 24.9 Results Lab / Micro Data Labs: Laboratory Results - last 24 hr 07/04/22 09:50: Total PSA 74.80 H
--- NOTE | 2022-07-04 13:37 | OP.PCM_ITS ---
Report of Operation Date of Procedure: 07/04/22 Pre-Operative Diagnosis: Elevated PSA, bladder mass medium, BPH with obstructio n. Post-Operative Diagnosis: Same Surgery/Procedure Performed:: Multiple procedures #1 transurethral section of prostate #2 transurethral section of bladder tumor medium #3 transrectal biopsy of the prostate Description of Surgical Findings:: In the preoperative setting I discussed with the patient how the surgery would be done with expect afterwards. We discussed how a prostate resection is done and we discussed the risk of the surgery including, bleeding, infection, retrograde ejaculation, changes with ejaculation or intercourse,. We discussed the possibility that the resection of the prostate may not alleviate his urinary symptoms. We discussed the small risk of developing scar tissue along the urethral channel and strictures. We also discussed the chance of the prostate could grow back and he may need further surgery or treatment in the future for prostate problems. Patient was taken back to the operating room, timeout procedure was performed, he was identified and marked and placed on the operating room table. He underwent general anesthesia. The patient was placed in dorsolithotomy position. The urethra and genitals prepped and draped in usual sterile fashion. I went into the bladder with a 30 degree lens and a cystoscope was performed and identified the tumor the tumors which was about 2.5 centimeters in size and occupying mostly the bladder neck of the bladder. I then switched over to the 70 degree lens and inspected the rest of the bladder with a 70 degree lens to make sure there is no other tumors in the bladder and to identify all the tumor locations. The right and left ureteral orifice were identified. The tumor was not involved in the ureteral orifices. I then placed the Olympus bipolar resectoscope with a large loop into the bladder. I then started resected the tumor and started superficially shaving small little pieces working my way to the base of the tumor. As I went along I then cauterize any bleeders that were encountered during the resection. The tumor pieces were then flushed out of the bladder and continued resecting the tumor until finally I got down to the base of the tumor and the muscle of the bladder was then identified a small little bit of muscle was taken with the resection. The Ellik was used then to evacuate all the tumor pieces out of the bladder. I then cauterized extensively the tumor base and also circumferentially around where the tumor was. Again we made sure to evacuate all the pieces out the bladder. I made sure there was no more bleeding from the base of the bladder and then over the tumor pieces were then evacuated out and sent off as a specimen. After the resection of the entire tumor was completed then I then proceeded with the prostate resection first resected the median lobe. And then resected the right lobe of the prostate. Then to resect the left lobe of the prostate. I then resected the apical tissue of the prostate. This was a complete resection of all obstructive tissue to improve voiding and relieve obstruction. I then made sure that there was no injury to the sphincter or the verumontanum was still intact. At the end of the resection all the chips were Ellik out of the bladder. I then identified the left and right ureteral orifice and these were confirmed to be in good position and effluxing and not injured. The resectoscope was removed, a 22 Sinhala catheter was placed into the bladder on continuous irrigation. And the urine was fairly light pink color and draini ng normally. Then aa double gloved was placed into the prostate on examination prostate right side of the prostate was examined, he had very firm prostate about 30gm n size, and then a biopsy needle was guided to the double gloved and finger guided biopsy was performed of the prostate. Biopsies were taken of the left prostate and the right prostate and these were sent off a separate specimen. He was taken back to the PACU in good condition. Surgeon: Michael Leach Type of Anesthesia: General Drains: 22fr 3 way Admit VTE Documentation VTE Present on Admission: No VTE Mechan Device Prophylaxis: SCD's VTE Pharm Prophylaxis ordered?: No
[2022-07-04] MEDS: Docusate Sodium 100 MG Capsule 200 MG PO (21:22)
[2022-07-04] MEDS: Ciprofloxacin 400 MG/200 ML BAG 200 MG IV (21:22)
[2022-07-05] VITALS (7 sets, daily range): BP systolic 94–133; BP diastolic 59–64; PULSE 59–68; RESP 16–18; TEMP 36.6–36.9; O2SAT 73–97
[2022-07-05] MEDS: 0.9% Normal Saline 1,000 ML 125 ML IV (04:11)
[2022-07-05] MEDS: Sertraline 50 MG Tablet 25 MG PO (08:30)
[2022-07-05] MEDS: Docusate Sodium 100 MG Capsule 200 MG PO (08:30)
[2022-07-05] MEDS: Metoprolol(XL)Succ 25 MG Tablet PO (08:33)
[2022-07-05] MEDS: Ciprofloxacin 400 MG/200 ML BAG 200 MG IV (08:33)
[2022-07-05] MEDS: Isosorbide Mononitrate 30 MG Tablet PO (08:33)
--- NOTE | 2022-07-05 14:08 | CASEMGMT ---
RAMIRO CM in to discuss FLORES form with patient. RN CM explained FLORES form, patient voiced understanding. Pt signed form and filed in chart. Pt provided with a copy of signed FLORES form. Patient had no further questions or concerns at this time.
--- NOTE | 2022-07-05 15:35 | PCM.PN.BLA ---
Progress Note d/c muñiz home after voids if cant void then home with 18 fr muñiz
== END 2022-07-05 17:00 | disposition home or self-care (01) ==
LOC: SDC 16:17 → MS3 16:17
PROVIDERS: Admitting Provider Urology; PCP Internal Medicine; Referring Provider Urology; Visit Provider Urology
PROC: 0VT08ZZ Resection of Prostate, Via Natural or Artificial Opening Endoscopic (ICD-10-PCS; CPT 52601; principal; 2022-07-04 10:55)
DX: C67.9 Malignant neoplasm of bladder, unspecified (principal); C61 Malignant neoplasm of prostate; Z87.891 Personal history of nicotine dependence; I10 Essential (primary) hypertension; I25.10 Atherosclerotic heart disease of native coronary artery without angina pectoris; N40.1 Benign prostatic hyperplasia with lower urinary tract symptoms; R33.8 Other retention of urine; F32.A Depression, unspecified; F41.9 Anxiety disorder, unspecified; Z79.899 Other long term (current) drug therapy; Z79.82 Long term (current) use of aspirin; R60.0 Localized edema; R06.02 Shortness of breath
CPT/HCPCS: 52235; 52601; 55700; 00912; 84153; 88305; 88307; 88341; 88342; 96361; 96365; 96366; 99218; 99251; 99252; J7030; J7120; G0378; G0463; J0744; J2405

== ENCOUNTER → 2022-07-20 | Outpatient (CLI) | payer MEDICARE, OTHER, SELFPAY ==
--- NOTE | 2022-07-20 06:52 | CT_ITS ---
STUDY: CT CHEST, ABDOMEN T PELVIS WITH CONTRAST REASON FOR EXAM: Male, 81 years old. INITIAL STAGING FOR BLADDER CANCER; IV ONLY. Recent tumor removal from the bladder. RADIATION DOSAGE (If Supplied By Facility): CTDIvol = ( 17.81 ) mGy, DLP = ( 850.54 ) mGycm TECHNIQUE: Transaxial imaging was performed following intravenous administration of IV 100mL Isovue-370. Individualized dose optimization techniques were used for this CT. COMPARISON: No relevant priors. FINDINGS: CHEST There is a 6.3 mm noncalcified nodule in the peripheral lateral aspect of the right lower lobe as seen on axial image #82 and coronal image #131. Hyperinflation. There is no demonstrated pleural abnormality. There are calcifications of the coronary arteries. Normal mediastinum. Normal hilar regions. Normal unenhanced pulmonary arteries. Normal aorta arch and descending thoracic aorta. There are multi-level degenerative changes of the thoracic spine. Focal soft tissue density and destruction of the posterior lateral aspect of the right lower rib. This most likely represents the ninth or 10th rib. There is no demonstrated abnormality of the visualized upper abdomen. ABDOMEN The visualized lung bases are unremarkable. The visualized portions of the heart are within normal limits. Normal liver. Normal gallbladder and extrahepatic biliary system. Normal spleen. Normal pancreas. Normal bilateral adrenal glands. Normal right kidney. Normal left kidney. Normal visualized stomach. Normal small intestine. There are multiple colonic diverticula consistent with diverticulosis. The appendix is visualized and appears normal. There is diffuse atherosclerotic calcification of the abdominal aorta, without a demonstrated aneurysm. Normal inferior vena cava. Normal retroperitoneum. Normal abdominal wall. There are diffuse degenerative changes of the visualized lumbar spine. PELVIS The urinary bladder is not adequately distended at this time. Mild degree of diffuse bladder wall thickening. Prominence of the seminal vesicles. Prostatic enlargement. The prostate measures 4.3cm x 5.4 cm. This causes indentation at the bladder base. Prior TURP. There is no pelvic fluid. There is no pelvic lymphadenopathy or mass lesion. There is diffuse atherosclerotic calcification of the pelvic arteries. CT/CT Chest, Abd, Pel w/Contrast IMPRESSION: Noncalcified 6.3 mm nodule in the peripheral lateral aspect of the right lower lobe. A follow-up examination in 6 months is recommended. Focal soft tissue density and destruction of the posterior lateral aspect of the right lower rib most likely the ninth or 10th rib. Diffuse bladder wall thickening and prostatic enlargement. Prior TURP. Electronically Signed: Irvin Owen MD at 11:19 EST ,
== END | disposition home or self-care (01) ==
LOC: CT 06:50
PROVIDERS: PCP Internal Medicine; Referring Provider Internal Medicine Medical Oncology; Visit Provider Internal Medicine Medical Oncology
DX: C67.9 Malignant neoplasm of bladder, unspecified (principal); I70.0 Atherosclerosis of aorta; K57.30 Diverticulosis of large intestine without perforation or abscess without bleeding; I25.10 Atherosclerotic heart disease of native coronary artery without angina pectoris; R91.1 Solitary pulmonary nodule; R93.41 Abnormal radiologic findings on diagnostic imaging of renal pelvis, ureter, or bladder
CPT/HCPCS: 71260; 74177; Q9967

== ENCOUNTER → 2022-07-23 | Outpatient (CLI) | payer MEDICARE, OTHER, SELFPAY ==
--- NOTE | 2022-07-23 08:00 | NM_ITS ---
CLINICAL: 81 year old male with history of urinary bladder carcinoma. WHOLE BODY 99m Tc MDP RADIONUCLIDE BONE SCINTIGRAPHY COMPARISON: CT of the left lower extremity report 07/05/2022 FINDINGS: Following the intravenous administration of 25.2 mCi of 99m Tc MDP, whole body bone images reveal: 1. There is an increase in radiopharmaceutical identified in the left proximal-distal tibia diffusely, the right posterior ninth rib, the left acetabulum and left pubic symphysis, the right distal femoral diaphysis, left anterior iliac wing, distal left femoral diaphysis, the proximal right tibial diaphysis, the distal right tibial metaphysis. 2. Enhanced uptake is noted in the mid cervical spine, bilateral wrists, the acromioclavicular, sternoclavicular and glenohumeral compartments of both shoulders, forefoot bilaterally, mid cervical spine, eleventh thoracic vertebrae posteriorly on the right, second-fifth lumbar vertebra posteriorly on the left and right, knee articulations bilaterally. 3. The remaining skeletal structures are scintigraphically unremarkable with normal-appearing renal images and urinary bladder activity identified. NM/Bone Scan Whole Body IMPRESSION: 1. 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 2. Degenerative arthrosis is visualized in the cervical, thoracic and lumbar spine, the bilateral wrist articulations, both shoulders, right-left knee articulations. Electronically Signed: Dom White, at 8:37 EST ,
== END | disposition home or self-care (01) ==
LOC: NM 07:54
PROVIDERS: PCP Internal Medicine; Referring Provider Internal Medicine Medical Oncology; Visit Provider Internal Medicine Medical Oncology
DX: M47.816 Spondylosis without myelopathy or radiculopathy, lumbar region (principal); C79.51 Secondary malignant neoplasm of bone; C67.9 Malignant neoplasm of bladder, unspecified; M47.814 Spondylosis without myelopathy or radiculopathy, thoracic region; M47.812 Spondylosis without myelopathy or radiculopathy, cervical region
CPT/HCPCS: 78306; A9503

== ENCOUNTER → 2022-07-26 | Outpatient (CLI) | payer MEDICARE, OTHER, SELFPAY ==
--- NOTE | 2022-07-26 | IMM_PTH ---
PATIENT: MONSE SOTELO LOC: [facility] U#:[id number] AGE/SX: 81/M ROOM: RE07/26/[address]: Dr. Michael Leach MD : 1940 BED: DIS: 07/26/2022 SPEC #: [id number] RECD: 07/30/22 14:00 STATUS: VINOD REQ #: [id number] RADHA: 07/26/22 00:[address]: Michael Leach DEPT: IMMUNOHISTOCHEMISTRY RECD BY: Haydee Singh ENTERED: 07/30/22 14:03 SP TYPE: IMMUNO OTHR DR: Dr. Levar Tran MD Tissues: D - PROSTATE LEFT F - PROSTATE LEFT Procedures: CK20 (add) CK5-6 (add) CK7 (add) CK8 (add) 34BE12 (add) Pankeratin (initial) Pankeratin (add) GATA3 (add) P40 (add) CD44 (add) PSAP (add) PHYSICIAN & [address] [address] SPECIMEN INFORMATION: Tissue Source: D - Left prostate, apex, core biopsy, F - Left prostate, base, core biopsy Clinical Info: Elevated PSA Specimen Number: [id number] D & F CPT code: 53486, 97707 x19 METHODOLOGY: Deparaffinized sections of prefer/formalin-fixed tissue or PAP/DQ stained slides are incubated with monoclonal/polyclonal antibodies/oligonucleotide probes. Localization is made via biotin free immunoperoxidase method. Appropriate controls are performed and reacted as expected. Results on target cell population are indicated in the following table: RESULTS: ANTIBODY / CLONE RESULT Block D AE1-3 (AE1/AE3/PCK26) positive CK7 (OV-TL12/30) negative CK8 (10bdrjQ81) positive, weak CK20 (KS20.8) negative PSAP (PASE/4LJ) negative anti-CD44 (SP37) negative CK5-6 (D5 & 1684) negative P40 (BC28) negative GATA3 (L50-823) negative 34BE12 (34BE12) negative Block F AE1-3 (AE1/AE3/PCK26) positive CK7 (OV-TL12/30) negative CK8 (92liuqD38) negative CK20 (KS20.8) negative PSAP (PASE/4LJ) negative anti-CD44 (SP37) positive, focal CK5-6 (D5 & 1684) negative P40 (BC28) negative GATA3 (L50-823) negative 34BE12 (34BE12) negative These tests were developed and their performance characteristics determined by [facility]. They may not have been cleared or approved by the U.S. Food and Drug Administration. The FDA has determined that such clearance or approval is not necessary. The above immunohistochemical/dualISH markers are ordered and reviewed by the Pathologist. INTERPRETATION: D. Left prostate, apex, core biopsy: Poorly differentiated carcinoma. See comment. F. Left prostate, base, core biopsy: Poorly differentiated carcinoma. See comment. SJ:rekha 07/31/2022 Comment: D & F ? IHC profile does not favor bladder or urothelial primary. Clinical correlation is necessary. Case has been reviewed in consultation with Dr. Parisi who concurs with the above diagnosis. IDC:AM
--- NOTE | 2022-07-26 | IMM_PTH ---
PATIENT: MONSE SOTELO LOC: [facility] U#:[id number] AGE/SX: 81/M ROOM: RE07/26/[address]: Dr. Michael Leach MD : 1940 BED: DIS: 07/26/2022 SPEC #: [id number] RECD: 07/30/22 14:00 STATUS: VINOD REQ #: [id number] RADHA: 07/26/22 00:[address]: Michael Leach DEPT: IMMUNOHISTOCHEMISTRY RECD BY: Haydee Singh ENTERED: 07/30/22 14:03 SP TYPE: IMMUNO OTHR DR: Dr. Levar Tran MD Tissues: D - PROSTATE LEFT F - PROSTATE LEFT Procedures: CK20 (add) CK5-6 (add) CK7 (add) CK8 (add) 34BE12 (add) Pankeratin (initial) Pankeratin (add) GATA3 (add) P40 (add) CD44 (add) PSAP (add) PHYSICIAN & [address] [address] SPECIMEN INFORMATION: Tissue Source: D - Left prostate, apex, core biopsy, F - Left prostate, base, core biopsy Clinical Info: Elevated PSA Specimen Number: [id number] D & F CPT code: 03334, 06014 x19 METHODOLOGY: Deparaffinized sections of prefer/formalin-fixed tissue or PAP/DQ stained slides are incubated with monoclonal/polyclonal antibodies/oligonucleotide probes. Localization is made via biotin free immunoperoxidase method. Appropriate controls are performed and reacted as expected. Results on target cell population are indicated in the following table: RESULTS: ANTIBODY / CLONE RESULT Block D AE1-3 (AE1/AE3/PCK26) positive CK7 (OV-TL12/30) negative CK8 (36mubzK32) positive, weak CK20 (KS20.8) negative PSAP (PASE/4LJ) negative anti-CD44 (SP37) negative CK5-6 (D5 & 1684) negative P40 (BC28) negative GATA3 (L50-823) negative 34BE12 (34BE12) negative Block F AE1-3 (AE1/AE3/PCK26) positive CK7 (OV-TL12/30) negative CK8 (69ukdwQ28) negative CK20 (KS20.8) negative PSAP (PASE/4LJ) negative anti-CD44 (SP37) positive, focal CK5-6 (D5 & 1684) negative P40 (BC28) negative GATA3 (L50-823) negative 34BE12 (34BE12) negative These tests were developed and their performance characteristics determined by [facility]. They may not have been cleared or approved by the U.S. Food and Drug Administration. The FDA has determined that such clearance or approval is not necessary. The above immunohistochemical/dualISH markers are ordered and reviewed by the Pathologist. INTERPRETATION: D. Left prostate, apex, core biopsy: Poorly differentiated carcinoma. See comment. F. Left prostate, base, core biopsy: Poorly differentiated carcinoma. See comment. SJ:rekha 07/31/2022 Comment: D & F ? IHC profile does not favor bladder or urothelial primary; however, morphology favors urothelial primary. Case has been reviewed in consultation with Dr. Parisi who concurs with the above diagnosis. IDC:AM
--- NOTE | 2022-07-26 13:00 | PROSBIL_PTH ---
PATIENT: MONSE SOTELO LOC: [facility] U#:[id number] AGE/SX: 81/M ROOM: RE07/26/[address]: Dr. Michael Leach MD : 1940 BED: DIS: 07/26/2022 SPEC #: [id number] RECD: 07/26/22 16:07 STATUS: VINOD RERadha #: [id number] RADHA: 07/26/22 13:[address]: Michael Leach DEPT: SURGICAL PATHOLOGY RECD BY: Arlet Morrison ENTERED: 07/27/22 11:41 SP TYPE: PROST BX SUSANNA DR: Dr. Levar Tran MD Tissues: A - PROSTATE RIGHT B - PROSTATE RIGHT C - PROSTATE RIGHT D - PROSTATE LEFT E - PROSTATE LEFT F - PROSTATE LEFT Procedures: PROSTATE BX HEADER OPERATION: Prostate biopsy PRE-OP DIAGNOSIS: Elevated PSA TISSUE SUBMITTED: A - Right apex, B - Right mid, C - Right base, D - Left apex, E - Left mid, F - Left base MICROSCOPIC DIAGNOSIS A. Right prostate, apex, core biopsy: Prostatic tissue, negative for malignancy. Focal mild chronic inflammation. B. Right prostate, mid, core biopsy: Prostatic tissue, negative for malignancy. C. Right prostate, base, core biopsy: Prostatic tissue, negative for malignancy. D. Left prostate, apex, core biopsy: A minute focus of poorly differentiated carcinoma. See comment. E. Left prostate, mid, core biopsy: Poorly differentiated carcinoma. See comment. F. Left prostate, base, core biopsy: Poorly differentiated carcinoma. See comment. SJ:rekha 07/31/2022 COMMENT D. The tumor measures less than 0.1 cm in greatest dimension, involves 1/1 core and <5% of the specimen. Perineural invasion is not seen. E. The tumor measures 0.3 cm in greatest length, involves 1/1 core and about 30% of the specimen. Perineural invasion is not seen. F. The tumor measures 0.5 cm in greatest length, involves 1/1 core and about 30-40% of the specimen. Perineural invasion is not seen. Tumor in the specimen D, E and F shows similar morphology. D & F. Immunohistochemistry ([id number]) supports the diagnosis of poorly differentiated carcinoma. IHC profile does not favor bladder or urothelial primary. Please make reference to previous specimen ([id number]) prostate, core biopsy with diagnosis of ?prostatic tissue, negative for malignancy? and prostate and bladder tumor, TUR, with diagnosis of ?invasive urothelial carcinoma.? Correlation with clinical, laboratory findings and appropriate follow up are necessary. Case has been reviewed in consultation with Dr. Parisi who concurs with the above diagnosis. IDC:AM MICROSCOPIC DESCRIPTION Slides are reviewed. GROSS DESCRIPTION A - Received is one container designated prostate, right apex. The specimen consists of one elongated fragments of light mack-white soft tissue measuring 1.2 cm in length and 0.1 cm in diameter. The specimen is totally submitted in one cassette. B - Received is one container designated prostate, right mid. The specimen consists of two elongated fragments of light mack-white soft tissue measuring 0.3 and 0.7 cm in length and 0.1 cm in diameter. The specimen is totally submitted in one cassette. C - Received is one container designated prostate, right base. The specimen consists of one elongated fragment of light mack-white soft tissue measuring 1 cm in length and 0.1 cm in diameter. The specimen is totally submitted in one cassette. D - Received is one container designated prostate, left apex. The specimen consists of one elongated fragment of light mack-white soft tissue measuring 1.5 cm in length and 0.1 cm in diameter. The specimen is totally submitted in one cassette. E - Received is one container designated prostate, left mid. The specimen consists of one elongated fragment of light mack-white soft tissue measuring 1.5 cm in length and 0.1 cm in diameter. The specimen is totally submitted in one cassette. F - Received is one container designated prostate, left base. The specimen consists of one elongated fragments of light mack-white soft tissue measuring 1.5 cm in length and 0.1 cm in diameter. The specimen is totally submitted in one cassette. / RAMILA:rekha 07/27/2022 TC:0 CPT: G0146 ADDENDUM ADDENDUM ADDENDUM ADDENDUM ADDENDUM ADDENDUM ADDENDUM ADDENDUM ADDENDUM ADDENDUM ADDENDUM ADDENDUM ADDENDUM ADDENDUM ADDENDUM ADDENDUM ADDENDUM ADDENDUM ADDENDUM ADDENDUM ADDENDUM ADDENDUM 02/18/2023 09:39 ADDENDUM 02/18/2023 09:39 ADDENDUM 02/18/2023 09:39 ADDENDUM 02/18/2023 09:39 ADDENDUM 02/18/2023 09:39 VENTANA PD-L1 (SP142) IMMUNOHISTOCHEMICAL ANALYSIS FOR UROTHELIAL CARCINOMA FROM 1010data RESULTS: Tumor infiltrating immune cell (IC) staining: <5% [facility] PR[facility] NGS REPORT FROM 1010data RESULT SUMMARY: Abnormal IMMUNOTHERAPY BIOMARKERS: Tumor Mutation [place]: Low (1.6 Mutations / MB) Microsatellite Instability: MSI Negative (4.35%) PERTINENT NEGATIVE RESULTS: The following genes are NEGATIVE for clinically relevant mutations. Mutational hotspots and surrounding exonic regions were interrogated for DNA level point mutations and indels (fusions not assayed). AR, MAURY, ATR, BARD1, BRCA1, BRCA2, BRIP1, CCNE1, CDK12, CHEK1, CHEK2, EPCAM, IIG166T, FANCA, FANCL, GEN1, HOXB13, MLH1, MRE11A, MSH2, MSH6, MUTYH, NBN, NTRK1, PALB2, PMS2, NAS1Q0B, PTEN, RAD51B, RAD51C, RAD51D, RAD54L, RB1, TERT, TP53 Please see complete report in e-chart or EMR
== END | disposition home or self-care (01) ==
LOC: LABSPEC 16:16
PROVIDERS: PCP Internal Medicine; Visit Provider Urology
DX: R97.20 Elevated prostate specific antigen [PSA] (principal); C61 Malignant neoplasm of prostate
CPT/HCPCS: 88305; 88341; 88342; G0416

== ENCOUNTER → 2022-08-17 | Outpatient (CLI) | payer MEDICARE, OTHER, SELFPAY ==
--- NOTE | 2022-08-17 08:56 | MRI_ITS ---
STUDY: MR PELVIS WITH T WITHOUT CONTRAST REASON FOR EXAM: Male, 82 years old. eval disease location, prostate/bladder TECHNIQUE: Standardized fat and water weighted pulse sequences were obtained in all 3 orthogonal planes, pre-and post contrast administration. IV 15cc clariscan was administered for the contrast portion of the examination. COMPARISON: PET/CT 07/25/2022. FINDINGS: The prostate is enlarged. There are findings suggestive of prior TURP. The prostate measures 5.72 cm transverse by 5.04 cm AP. There is diffuse inhomogeneous enhancement of the prostate. Furthermore the prostate margins superolaterally on the right and left appear indistinct suggestive of extracapsular extension. Normal urinary bladder. Normal visualized small intestine. Normal visualized colon. There is no pelvic fluid. There is no pelvic mass lesion or lymphadenopathy. Normal visualized pelvic arteries. There is a increased signal intensity on fat saturation and inversion recovery imaging within the left inferior pubic ramus consistent with metastatic disease this was seen on the prior study. Normal abdominal wall. MRI/Pelvis W/WO Contrast IMPRESSION: Enlarged prostate with inhomogeneous contrast enhancement consistent with patient''s prostate carcinoma. Margins of prostate superior laterally are indistinct suggestive of extracapsular extension. Signal abnormality within the inferior left pubic ramus with inhomogeneous contrast enhancement at this site consistent with metastatic disease. Electronically Signed: Roland Higgins MD, SHANTA at 9:08 EST ,
== END | disposition home or self-care (01) ==
LOC: MRI 08:56
PROVIDERS: PCP Internal Medicine; Referring Provider Student in an Organized Health Care Education/Training Program; Visit Provider Student in an Organized Health Care Education/Training Program
DX: C67.9 Malignant neoplasm of bladder, unspecified (principal)
CPT/HCPCS: 72197; A9575

== ENCOUNTER 2022-09-10 14:46 | Outpatient (CLI) | payer MEDICARE, OTHER, SELFPAY ==
--- NOTE | 2022-09-10 14:48 | VDLE_ITS ---
Reason For Study: LEG SWELLING RIGHT LEFT CFV is compressible, spontaneous, phasic, GSV is normal. competent and demonstrates normal CFV is compressible, spontaneous, phasic, augmentation. competent, and demonstrates normal Procedure augmentation. This is a venous duplex using B-mode, color FV is compressible, spontaneous, phasic, flow and spectral Doppler. competent and demonstrates normal Exam performed in department. augmentation. The exam was diagnostic. POP V is compressible, spontaneous, phasic, A preliminary report was called and/or faxed competent and demonstrates normal to [facility] Oncology / Kusum Yun. augmentation. T/P Trunk is compressible. PTV is compressible. LT PerV is compressible. VL/Venous Duplex US, Unilateral Interpretation Summary There is no evidence of left lower extremity deep vein thrombosis. Left great s aphenous vein appears patent and compressible segmentally. Patent and compressible right common femor al vein Ordering Physician: Kusum Yun Referring Physician: Levar Tran M.D. Performed By: Avinash Briscoe RVT
== END 2022-09-10 23:59 | disposition home or self-care (01) ==
PROVIDERS: PCP Internal Medicine; Visit Provider Nurse Practitioner Family
DX: M79.89 Other specified soft tissue disorders (principal); R19.7 Diarrhea, unspecified
CPT/HCPCS: 36415; 80048; 83735; 93971

== ENCOUNTER → 2022-09-14 | Outpatient (CLI) | payer MEDICARE, OTHER, SELFPAY ==
--- NOTE | 2022-09-14 07:44 | CT_ITS ---
STUDY: CT ABDOMEN AND PELVIS WITH CONTRAST REASON FOR EXAM: Male, 82 years old. Diarrhea? Diverticulitis vs colitis immunotherapy for bladder/prostate cancer with bone mets RADIATION DOSAGE (If Supplied By Facility): CTDIvol = ( 12.68 ) mGy, DLP = ( 570.46 ) mGycm TECHNIQUE: Transaxial images were obtained from the dome of the diaphragm to the symphysis pubis with oral contrast. Oral and amp; IV Readi-CAT and amp; 100mL Isovue-300 was administered. Sagittal and coronal images were reconstructed. Individualized dose optimization techniques were used for this CT. COMPARISON: Comparison is made with prior examination dated January 07, 2023. FINDINGS: The visualized lung bases are unremarkable. Coronary artery calcification. There is decreased attenuation of the liver consistent with steatosis. Normal gallbladder and extrahepatic biliary system. Normal spleen. Normal pancreas. Normal bilateral adrenal glands. Normal right kidney. Normal left kidney. Normal visualized stomach. Normal small intestine. There is evidence of a circumferential wall thickening of the rectum. Proctitis should be ruled out. There are multiple colonic diverticula consistent with diverticulosis. Moderate amount of fecal material is seen throughout the colon. The appendix is visualized and appears normal. There is scattered atherosclerotic calcification of the abdominal aorta, without a demonstrated aneurysm. Normal inferior vena cava. Normal retroperitoneum. Normal urinary bladder. There is evidence of a prior TURP. Small pelvic lymph nodes. Normal abdominal wall. There are diffuse degenerative changes of the visualized lumbar spine. Dextroscoliosis. Heterogeneous sclerotic appearance of the medial aspect of the inferior pubis on the left side. This corresponds to the MRI findings. CT/Abdomen/Pelvis WITH Contrast IMPRESSION: Findings suggestive of a possible proctitis. Small pelvic lymph nodes. Prior TURP. Fatty infiltration of the liver. Electronically Signed: Irvin Owen MD at 13:17 EST ,
== END | disposition home or self-care (01) ==
LOC: CT 07:44
PROVIDERS: PCP Internal Medicine; Visit Provider Nurse Practitioner Family
DX: R19.7 Diarrhea, unspecified (principal)
CPT/HCPCS: 74177; Q9967

== ENCOUNTER 2022-09-21 08:46 | Outpatient (RCR) | payer MEDICARE, OTHER, SELFPAY ==
--- NOTE | 2022-09-21 12:01 | HP.OTEVAL_ITS ---
Patient's Visit Information MONSE SOTELO is a 82 year old M, referred to Occupational Therapy by Dr. Aiden Viera DO, with a diagnosis of left LE edema/ tibial metastases. Date of Evaluation: 09/21/22 Occupational Therapist: Sudha Sanedrs, OTR/L, CHT - Subjective This 82 year old male dx with tibial metastases from prostate and bladder cancer. Pt states symptoms of swelling and pain started in 2021. Pt states pain was so intense he couldn't ambulate without a cane or ww. Pt states he finished 5 sessions of radiation and continues to have left ankle and leg swelling. pt is wearing copper fit compression socks ( 10-15mmHg) states he as been wearing for a week and has noticed some improvement. Pt states they are h filomena to get on and would like to know what other options he has to control his swelling. - Pain left ankle 3 Pain Intensity Range: 3, 4 - Lower Limb Functional Index Lower Extremity Functional Score: 28 - Goals Demonstrate a 20% reduction in edema by d/c: Yes Demonstrate adequate knowledge of self-bangaging by 1st week: Yes Demonstrate adequate knowledge of self-massage by 2nd week: Yes Demonstrate adequate knowledge skin care/prec by 2nd week: Yes Demonstrate adequate knowledge therapeutic exercises by d/c: Yes Voice need to replace compression garment every 4-6mo by dc: Yes - Rehabilitation General Assessment: pt demo with left LE lymphedema stage 2. Pt demo need for skilled OT services 2-4 visit to ed. pt on life long mtg of lymphedema, lymph stimulation exercise, and compression alternatives 20-30mmHg. Today therapist gave handout on velcro closure compression garment as he felt this would be something he could better mtg. Pt to get compression garment and return for fitting or as needed for further POC. pts is home with Hospice care, but pt was going to try to get the garment ordered in next few days.(family to assist ordering). Therapist also ed. pt on elevation and monitoring edema with measurements in AM. as morning measurements are more accurate. pt demo understanding and agree to POC. Rehabilitation Potential: Good - Anticipated Interventions Education re Diagnosis, Education re Life-long lymphedema Management, Education re Skin Care and Precautions, Education re Correct Donning Tech,Care&Wearing Sched Comp Garments, Caregiver Training, Home Program - Visit Plan TEXT: Thank you for the opportunity to evaluate your patient. For Medicare and Medicare HMO plans, please review the plan of care and approve it. It will need to be FAXED BACK to us at [phone] for Medicare purposes. Please let me know if there are questions or concerns regarding this plan of care. Physician Signature: Date:
--- NOTE | 2022-09-21 12:05 | HP.OTEVAL_ITS ---
Patient's Visit Information MONSE SOTELO is a 82 year old M, referred to Occupational Therapy by Dr. Aiden Viera DO, with a diagnosis of left LE edema/ tibial metastases. Date of Evaluation: 09/21/22 Occupational Therapist: Sudha Sanders, CHARITYR/[place], CHT - Subjective This 82 year old male dx with tibial metastases from prostate and bladder cancer. Pt states symptoms of swelling and pain started in 2021. Pt states pain was so intense he couldn't ambulate without a cane or ww. Pt states he finished 5 sessions of radiation and continues to have left ankle and leg swelling. pt is wearing copper fit compression socks ( 10-15mmHg) states he as been wearing for a week and has noticed some improvement. Pt states they are h filomena to get on and would like to know what other options he has to control his swelling. - Pain left ankle 3 Pain Intensity Range: 3, 4 - Lymphedema (Circumferential Measure) Mid-foot: right 23cm left 24cm Ankle: right 24cm left 33cm Lower calf: right 23cm left 28cm Largest calf: right 36cm left 39cm Below knee: right 35cm left 37cm - Lower Limb Functional Index Lower Extremity Functional Score: 28 - Goals Demonstrate a 20% reduction in edema by d/c: Yes Demonstrate adequate knowledge of self-bangaging by 1st week: Yes Demonstrate adequate knowledge of self-massage by 2nd week: Yes Demonstrate adequate knowledge skin care/prec by 2nd week: Yes Demonstrate adequate knowledge therapeutic exercises by d/c: Yes Voice need to replace compression garment every 4-6mo by dc: Yes - Rehabilitation General Assessment: pt demo with left LE lymphedema stage 2. Pt demo need for skilled OT services 2-4 visit to ed. pt on life long mtg of lymphedema, lymph stimulation exercise, and compression alternatives 20-30mmHg. Today therapist gave handout on velcro closure compression garment as he felt this would be something he could better mtg. Pt to get compression garment and return for fitting or as needed for further POC. pts is home with Hospice care, but pt was going to try to get the garment ordered in next few days.(family to assist ordering). Therapist also ed. pt on elevation and monitoring edema with measurements in AM. as morning measurements are more accurate. pt demo understanding and agree to POC. Rehabilitation Potential: Good - Anticipated Interventions Education re Diagnosis, Education re Life-long lymphedema Management, Education re Skin Care and Precautions, Education re Correct Donning Tech,Care&Wearing Sched Comp Garments, Caregiver Training, Home Program - Visit Plan TEXT: Thank you for the opportunity to evaluate your patient. For Medicare and Medicare HMO plans, please review the plan of care and approve it. It will need to be FAXED BACK to us at [phone] for Medicare purposes. Please let me know if there are questions or concerns regarding this plan of care. Physician Signature: Date:
== END 2022-09-21 19:00 | disposition home or self-care (01) ==
LOC: OT 08:46
PROVIDERS: PCP Internal Medicine; Referring Provider Student in an Organized Health Care Education/Training Program; Visit Provider Student in an Organized Health Care Education/Training Program
DX: M79.89 Other specified soft tissue disorders (principal)
CPT/HCPCS: 97166

== ENCOUNTER 2022-10-08 07:52 | Day surgery (SDC) | payer MEDICARE, OTHER, SELFPAY ==
[2022-10-08] VITALS (7 sets, daily range): BP systolic 80–126; BP diastolic 46–92; PULSE 46–62; RESP 16–18; TEMP 36.1–36.6; O2SAT 92–100; BMI 24.2
--- NOTE | 2022-10-08 08:16 | PCM.HP.BLA ---
History and Physical Date of Admission: 10/08/22 82 M who presents to the office today to establish with GI per referral from oncology requesting sigmoidoscopy for diarrhea, proctitis on CT in (wasn't seen on 07/2022 CT). Stool w/u negative for inflammation/infection/blood. He has bladder cancer metastasized to the bone being treated with Keytruda, and prostate cancer (poorly differentiated) on lupron per urology. Received palliative radiation to left tibia. Diarrhea began in July 2022. Stool dark due to iron. Mostly watery stools. Having 1-2 BMs per day, initially was 3-4x. Hasn't woken at night recently due to diarrhea. At onset he had a couple of accidents at night. No melena or hematochezia. No abd, pelvic or rectal pain. No tenesmus. Not related to eating usually. Taking imodium 2-4 pills per day which helps. No nausea or vomiting. No heartburn. No dysphagia. Appetite is good. Weight is stable. 09/14/22 CT/Abdomen/Pelvis WITH Contrast IMPRESSION: Findings suggestive of a possible proctitis. --circumferential wall thickening of the rectum Small pelvic lymph nodes. Prior TURP. Fatty infiltration of the liver. Moderate amt fecal material ROS Const Constitutional: Positive for fatigue ENT ENT: No difficulty swallowing Cardio Cardiology: Positive for leg pain with exertion Gastro GI: No abdominal pain, belching, bloating, change in bowel habits, change in stool character, coffee ground emesis, constipation, cramping, diarrhea, heartburn, difficulty swallowing, feeling full early, excessive flatus, incontinent of stools, Vomiting blood/hematemesis, Blood in stool, loose stools, Black,tarry stools, nausea/dyspepsia, pain with swallowing, vomiting or other Musc Musculoskeletal: Positive for joint pain, joint swelling, muscle weakness and leg pain with exertion Skin Skin: No yellowing of the eye or itchy eyes Psych Psychiatric: Positive for anxiety and Positive for depression Endo Endocrine: Positive for fatigue Aller/Imm Allergy/Immunologic: No itchy eyes Matt/Lymp Hematologic/Lymphatic: No easy bleeding or easy bruising Exam Const General: cooperative and comfortable Nutritional Appearance: average body habitus Orientation: alert, awake and oriented x3 GI Inspection: normal to inspection Palpation: soft and nontender Quality Reporting Tobacco Screening (CMS 138) Smoking Status: Former smoker Assessment and Plan Assessment and Plan (1) Diarrhea: ?Status:?Acute ?Qualifiers: ?Diarrhea type:?unspecified type? Qualified Code(s):?R19.7 - Diarrhea, unspecified ?Plan: 82 yr old male with diarrhea x almost 2 mos, possible proctitis per CT. Diarrhea partially managed with loperamide. He is scheduled for flex sig on 10/08/22. Discussed possible suppository or enema treatment but will hold off since his scope is in just 5 days.? (2) Proctitis: ?Status:?Acute ?Plan: see above I have examined the patient and the H&P has been reviewed. There are no clinical changes since date of exam.
[2022-10-08] MEDS: Lactated Ringers 1,000 ML 15 ML IV (08:25)
--- NOTE | 2022-10-08 09:00 | COLBX_PTH ---
PATIENT: MONSE SOTELO LOC: EN U#:[id number] AGE/SX: 82/M ROOM: RE10/08/[address]: Dr. Jim Talavera DO : 1940 BED: DIS: 10/08/2022 SPEC #: [id number] RECD: 10/08/22 11:35 STATUS: VINOD HURTADORadha #: [id number] RADHA: 10/08/22 09:[address]: Jim Talavera DEPT: SURGICAL PATHOLOGY RECD BY: Rell Kline ENTERED: 10/08/22 12:04 SP TYPE: COLON BX OTHR DR: Dr. Levar Tran MD Tissues: Rectum, NOS Procedures: Surgery Specimen Level IV HEADER OPERATION: Flexible sigmoidoscopy, biopsy PRE-OP DIAGNOSIS: Diarrhea, proctitis TISSUE SUBMITTED: Rectal biopsy MICROSCOPIC DIAGNOSIS Rectal biopsy: Acute proctitis. See comment. RAMILA:rekha 10/09/2022 COMMENT Focal cryptitis is noted. Crypt abscesses, glandular distortion and granulomas are not seen. Correlation with clinical, endoscopic findings and appropriate follow up are necessary. MICROSCOPIC DESCRIPTION Slides are reviewed. GROSS DESCRIPTION Received in fixative is one container labeled with the patient's name and designated rectal biopsy. The specimen consists of two irregular fragments of light mack soft tissue that in aggregate measure 0.6 x 0.3 x 0.1 cm. The specimen is totally submitted in one cassette. / SJ:rekha 10/08/2022 TC:2 CPT: 04190
--- NOTE | 2022-10-08 09:18 | OP.FLEXSIG_ITS ---
Patient Name: David Carrillo Procedure Date: 10/08/2022 8:58 AM Date of : 1940 Age: 82 Procedure: Flexible Sigmoidoscopy Indications: Abdominal pain in the left lower quadrant, Hematochezia, Abnormal CT of the GI tract Providers: Jim Talavera DO Referring MD: Jim Talavera DO Medicines: Monitored Anesthesia Care Patient Profile: This is an 82 year old male. Refer to note in patient chart for documentation of history and physical. Patient has symptoms of acute left lower quadrant abdominal pain. Last Colonoscopy: several years ago. Complications: No immediate complications. Procedure: Pre-Anesthesia Assessment: - Prior to the procedure, a History and Physical was performed, and patient medications and allergies were reviewed. The patient is competent. The risks and benefits of the procedure and the sedation options and risks were discussed with the patient. All questions were answered and informed consent was obtained. Patient identification and proposed procedure were verified by the physician in the pre-procedure area. Mental Status Examination: alert and oriented. Airway Examination: normal oropharyngeal airway and neck mobility. Respiratory Examination: clear to auscultation. CV Examination: normal. Prophylactic Antibiotics: The patient does not require prophylactic antibiotics. Prior Anticoagulants: The patient has taken no previous anticoagulant or antiplatelet agents. ASA Grade Assessment: II - A patient with mild systemic disease. After reviewing the risks and benefits, the patient was deemed in satisfactory condition to undergo the procedure. The anesthesia plan was to use monitored anesthesia care (MAC). Immediately prior to administration of medications, the patient was re-assessed for adequacy to receive sedatives. The heart rate, respiratory rate, oxygen saturations, blood pressure, adequacy of pulmonary ventilation, and response to care were monitored throughout the procedure. The physical status of the patient was re-assessed after the procedure. After obtaining informed consent, the endoscope was passed under direct vision. Throughout the procedure, the patient's blood pressure, pulse, and oxygen saturations were monitored continuously. The colonoscope was introduced through the anus and advanced to the sigmoid colon. The flexible sigmoidoscopy was accomplished without difficulty. The patient tolerated the procedure well. The quality of the bowel preparation was fair. Scope In: 9:06:57 AM Scope Out: 9:10:30 AM Total Procedure Duration Time 0 hours 3 minutes 33 seconds Findings: Hemorrhoids were found on perianal exam. Non-bleeding internal hemorrhoids were found during retroflexion. The hemorrhoids were Grade II (internal hemorrhoids that prolapse but reduce spontaneously). A moderate amount of stool was found in the rectum, in the recto-sigmoid colon and in the sigmoid colon. Lavage of the area was performed using a moderate amount, resulting in incomplete clearance with fair visualization. An area of mildly congested mucosa was found in the rectum. Biopsies were taken with a cold forceps for histology. Verification of patient identification for the specimen was done. Estimated blood loss was minimal. Impression: - Preparation of the colon was fair. - Hemorrhoids found on perianal exam. - Non-bleeding internal hemorrhoids. - Stool in the rectum, in the recto-sigmoid colon and in the sigmoid colon. - Congested mucosa in the rectum. Biopsied. Recommendation: - Continue present medications. Procedure Code(s): --- Professional --- 82494, Sigmoidoscopy, flexible; with biopsy, single or multiple CPT copyright 2017 [employer]. All rights reserved. The codes documented in this report are preliminary and upon wood grainer review may be revised to meet current compliance requirements. Jim Talavera DO 10/08/2022 9:17:47 AM This report has been signed electronically. Number of Addenda: 0 Note Initiated On: 10/08/2022 8:58 AM
--- NOTE | 2022-10-08 09:18 | OP.CCLET_ITS ---
10/08/2022 Levar Tran [address] [place] [address] Re : Flexible Sigmoidoscopy procedure for David Carrillo Dear Dr. Tran This procedure was performed on Saturday, October 08, 2022. My impressions and recommendations are as follows: Impressions : - Preparation of the colon was fair. - Hemorrhoids found on perianal exam. - Non-bleeding internal hemorrhoids. - Stool in the rectum, in the recto-sigmoid colon and in the sigmoid colon. - Congested mucosa in the rectum. Biopsied. Recommendations : - Continue present medications. My findings are described in the full procedure note, which is enclosed. If I can be of further assistance, please feel free to contact me at . Sincerely, Jim Talavera, 10/08/2022 9:17:47 AM This report has been signed electronically.
== END 2022-10-08 10:05 | disposition home or self-care (01) ==
LOC: EN 07:54 → AC 07:55
PROVIDERS: PCP Internal Medicine; Referring Provider Internal Medicine; Visit Provider Internal Medicine Gastroenterology
PROC: 0DJD8ZZ Inspection of Lower Intestinal Tract, Via Natural or Artificial Opening Endoscopic (ICD-10-PCS; CPT 45330; principal; 2022-10-08 08:55)
DX: K62.89 Other specified diseases of anus and rectum (principal); R19.7 Diarrhea, unspecified; K64.1 Second degree hemorrhoids; R10.32 Left lower quadrant pain; Z87.891 Personal history of nicotine dependence
CPT/HCPCS: 45331; 88305; J7120; J2405

== ENCOUNTER 2022-11-12 21:17 | Emergency (ER) | payer MEDICARE, OTHER, SELFPAY ==
[2022-11-12 21:19] VITALS: BP 170/79; PULSE 77; RESP 18; TEMP 36.8; O2SAT 95; BMI 23.9
[2022-11-12] MEDS: 0.9% Normal Saline 1,000 ML 999 ML IV (23:03)
[2022-11-12 23:16] LABS: Absolute Lymphocyte Count 0.84 X10^3/uL (0.83-4.51); Absolute Neutrophil Count 4.5 X10^3/uL (2.0-7.7); Basophil# 0.04 X10^3/uL; Basophil% 0.7 % (0-1); Eosinophil# 0.11 X10^3/uL; Eosinophils% 1.8 % (0-5); Hematocrit 36.6 % (40-54); Hemoglobin 12.1 g/dL (13.0-16.5); Lymphocyte # 0.84 X10^3/ul (0.83-4.51); Lymphocyte % 13.9 % (19-41); Mean Corp Hgb Conc 33.1 g/dL (32-36); Mean Corpuscular Hgb 30.3 pg (27.0-32.0); Mean Corpuscular Volume 91.7 fL (80-94); Mean Platelet Vol. 9.8 fl (6.2-12.0); Monocyte# 0.56 X10^3/uL; Monocyte% 9.2 % (0-10); NRBC Flagged by Analyzer 0 % (0-5); Neutrophil # 4.49 X10^3/uL (2.7-7.7); Neutrophil % 74.1 % (47-70); Platelet Count 132 K/mm3 (150-450); RBC Distribution Width CV 12.8 % (11.6-14.6); RBC Distribution Width SD 42.7 fl (35.1-43.9); Red Blood Count 3.99 M/mm3 (4.6-6.2); White Blood Count 6.1 K/mm3 (4.4-11.0)
[2022-11-12 23:21] LABS: Anion Gap 8 (5-15); BUN 14 mg/dL (7-18); BUN/Creat Ratio 15.6 RATIO (10-20); Calcium,Total 9.1 mg/dL (8.5-10.1); Chloride 104 mmol/L (98-107); EST Glomerular Filtration Rate 86 mL/min (>60); Est Glom Filt Rate - Afr Amer 104 mL/min (>60); Glucose 123 mg/dL (74-106); Magnesium 1.8 mg/dL (1.6-2.6); Potassium 3.3 mmol/L (3.5-5.1); Sodium Level 138 mmol/L (136-145)
--- NOTE | 2022-11-13 00:37 | EDS_ITS ---
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 He has been worked up by his oncologist and GI physician with stool studies and a sigmoidoscopy. He states that there is no infectious change with only inflammatory nature to the diarrhea. He states he is receiving Keytruda and had his infusion on . He states since that time his diarrhea is slightly worsened and he is concerned about dehydration and therefore comes in for evaluation [facility] Medical History Ambulates with cane Anxiety Bladder disease Cardiology follow-up encounter Depression Diarrhea Encounter for education Former smoker History of echocardiogram History of edema History of pain when walking History of stress test Hypertension Left leg swelling Loss of hearing Lymphedema Nonobstructive atherosclerosis of coronary artery Prostate disease Shortness of breath on exertion Trigeminal nerve disease Wears glasses Home Medications carboxymethylcellulose 0.5 %-glycerin 0.9 % eye drops 1 drp ophthalmic (eye) PRN PRN Dry Eye(S) 09/26/21 [History Last Taken Unknown] sertraline 25 mg tablet (Zoloft) 25 mg PO DAILY 09/26/21 [History Last Taken 10/08/22] Handicap Parking Placard #1 ea 06/18/22 [Rx Last Taken Unknown] isosorbide mononitrate 30 mg tablet,extended release 24 hr 30 mg PO DAILY #30 tabs 06/18/22 [Rx Last Taken 10/08/22] metoprolol succinate 25 mg tablet,extended release 24 hr 25 mg PO DAILY #30 tabs 06/18/22 [Rx Last Taken 10/08/22] ibuprofen 600 mg tablet 600 mg PO Q6H PRN Pain 06/29/22 [History Last Taken Unknown] aspirin 81 mg chewable tablet 81 mg PO DAILY 07/04/22 [History Last Taken 10/08/22] polysaccharide iron complex 150 mg iron capsule (Ferrex) 150 mg PO DAILY 90 days #90 caps 07/27/22 [Rx Last Taken Unknown] bicalutamide 50 mg tablet 50 mg PO DAILY 10/03/22 [History Last Taken Unknown] loperamide 2 mg capsule (Imodium A-D) 2 mg PO Q6H PRN Diarrhea 10/03/22 [History Last Taken Unknown] mesalamine 1.2 gram tablet,delayed release 3.6 g PO DAILY #270 tabs 11/05/22 [Rx Last Taken Unknown] Allergy/AdvReac Type Severity Reaction Status Date / Time No Known Allergies Allergy Verified 11/12/22 21:21 Family History Sister Heart disease Surgical History History of left heart catheterization (10/03/21) Hx of colonoscopy Hx of left cataract extraction Hx of right cataract extraction Hx of transurethral resection of prostate Social History Smoking Status: Former smoker quit date: 07/15/82 pack-years: 25 alcohol intake: current alcohol intake frequency: holidays/special occasions only Alcohol type: beer caffeine: Yes Type: coffee Number of servings: 2 ROS ROS ED Constitutional Constitutional ED: Denies chills or fever(s) ENT ENT ED: Denies sore throat Cardiovascular Cardiovascular: Denies chest pain Respiratory/Chest Respiratory/Chest: Denies cough or dyspnea Gastrointestinal Gastrointestinal: Reports diarrhea; Denies abdominal pain, nausea or vomiting Genitourinary Genitourinary ED: Denies dysuria or hematuria Musculoskeletal Musculoskeletal: Denies back pain or myalgias Integumentary Denies rash Neurologic Neurologic: Reports weakness; Denies headache(s) Hematologic/Lymphatic Hematologic/Lymphatic: Denies easy bleeding or easy bruising EXAM Physical Exam Const Vital Signs: 11/12/22 21:19 11/12/22 22:18 11/13/22 01:23 Temperature 98.2 F Temperature Source Temporal Pulse Rate 77 74 Respiratory Rate 18 16 Respiratory Effort Normal Respiratory Pattern Normal Blood Pressure 170/79 H 139/86 H Blood Pressure Mean 109 Pulse Ox 95 96 Oxygen Delivery Method Room Air Positive well nourished and well developed General Appearance ED: well developed HEENT Reports dry mucous membranes HEENT Narrative: No signs of infection noted in the posterior pharynx but mucous membranes are dry and tacky Mouth ED: Yes dry mucous membranes Mouth: dry mucous membranes Eyes PERRL and EOMs intact bilaterally General Eye ED: Negative for scleral icterus Neck supple Resp normal respiratory effort and clear to auscultation bilaterally Cardio regular rate and regular rhythm GI non-tender, non-distended and no masses GI Narrative: Abdomen is soft nontender nondistended with hyperactive bowel sounds. 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 Negative Homans' sign bilaterally Neuro oriented x3 and CN's II-XII intact bilaterally Sensorium / Orientation: alert Motor Exam: strength 5/5 throughout Psych mental status grossly normal Skin no rashes or lesions noted Skin Narrative: Skin turgor is increased General Skin Exam: Negative for jaundice MDM MDM MDM Narrative Medical decision making narrative: Patient presented to the ER with stable vitals and chronic changes consistent with his history of bladder cancer. Differential diagnosis includes viral gastroenteritis atypical intestinal infection such as Salmonella E. coli C. difficile or Shigella. There is also concern for acute kidney injury or severe electrolyte derangement or neutropenia. Secondary to this basic blood work was obtained. Labs showed no leukocytosis or depressed neutrophil count. Kidney function is normal and there is no significant electrolyte derangement. Also patient reports that his oncologist and GI physician have performed stool studies and these have not been positive and therefore do not feel there is need for repeat samples at this time. Patient was given IV hydration and afterwards reported feeling better and as vitals remained stable and there is clinically significant laboratory abnormalities he is otherwise safe for discharge History & Record Review Discussion w/independent historian: Patient and Family Lab Data Attestation: I reviewed the patient's lab results. Labs: Laboratory Results - last 24 hr 11/12/22 11/12/22 22:59 22:59 WBC 6.1 RBC 3.99 L Hgb 12.1 L Hct 36.6 L MCV 91.7 MCH 30.3 MCHC 33.1 RDW Std Deviation 42.7 RDW Coeff of Jagjit 12.8 Plt Count 132 L MPV 9.8 Immature Gran % (Auto) 0.300 Neut % (Auto) 74.1 H Lymph % (Auto) 13.9 L [place] % (Auto) 9.2 Eos % (Auto) 1.8 Baso % (Auto) 0.7 Absolute Neuts (auto) 4.5 Absolute Lymphs (auto) 0.84 Nucleated RBC % 0 Sodium 138 Potassium 3.3 L Chloride 104 Carbon Dioxide 26.0 Anion Gap 8 BUN 14 Creatinine 0.90 Estim Creat Clear Calc 61.10 Est GFR (MDRD) Af Amer 104 Est GFR (MDRD) Non-Af 86 BUN/Creatinine Ratio 15.6 Glucose 123 H Calcium 9.1 Magnesium 1.8 Discharge Plan Triage Chief Complaint: Weakness ED Provider: Carlos Reddy Dx/Rx/DC Orders Clinical Impression: Dehydration, Diarrhea, Proctitis, Bladder cancer metastasized to bone Instructions: Dehydration Prescriptions: No Action carboxymethylcellulose-glycern 0.5-0.9 % drops 1 drp ophthalmic (eye) PRN PRN (Reason: Dry Eye(S)) Label Comments: 1 drop into both eyes as directed sertraline [Zoloft] 25 mg tablet 25 mg PO DAILY metoprolol succinate 25 mg tablet extended release 24 hr 25 mg PO DAILY Qty: 30 11RF isosorbide mononitrate 30 mg tablet extended release 24 hr 30 mg PO DAILY Qty: 30 11RF polysaccharide iron complex [Ferrex 150] 150 mg iron capsule 150 mg PO DAILY 90 Days Qty: 90 3RF mesalamine 1.2 gram tablet,delayed release (DR/EC) 3.6 g PO DAILY Qty: 270 1RF ibuprofen 600 mg Tablet 600 mg PO Q6H PRN (Reason: Pain) aspirin [Baby Aspirin] 81 mg Tablet,Chewable 81 mg PO DAILY bicalutamide 50 mg tablet 50 mg PO DAILY Label Comments: TAKE 1 TABLET BY MOUTHCONCE DAILY loperamide [Imodium A-D] 2 mg Capsule 2 mg PO Q6H PRN (Reason: Diarrhea) (DME) Handicap Parking Placard See Rx Instructions .Route .MEDSUPPLY Qty: 1 0RF Rx Instructions: As directed Primary Care Provider: Levar Tran Referrals: Levar Tran MD [Primary Care Provider] - Activity Restrictions/Additional Instructions: Continue to keep yourself well-hydrated and return to the ER should you have any further concerns Disposition Disposition: Home, Self Care Discharge Date/Time: 11/13/22 01:24
[2022-11-13 01:23] VITALS: BP 139/86; PULSE 74; RESP 16; O2SAT 96
== END 2022-11-13 01:24 | disposition home or self-care (01) ==
PROVIDERS: Emergency Provider Emergency Medicine; PCP Internal Medicine; Visit Provider Emergency Medicine
DX: E86.0 Dehydration (principal); C67.9 Malignant neoplasm of bladder, unspecified; R19.7 Diarrhea, unspecified; K62.89 Other specified diseases of anus and rectum; I10 Essential (primary) hypertension; Z87.891 Personal history of nicotine dependence; I25.10 Atherosclerotic heart disease of native coronary artery without angina pectoris; F41.9 Anxiety disorder, unspecified; Z79.899 Other long term (current) drug therapy; Z79.82 Long term (current) use of aspirin; Z79.1 Long term (current) use of non-steroidal anti-inflammatories (NSAID)
CPT/HCPCS: 80048; 83735; 85025; 96360; 96361; 99283; J7030; J7040; A4216

== ENCOUNTER 2022-11-20 08:02 | Outpatient (CLI) | payer MEDICARE, OTHER, SELFPAY ==
--- NOTE | 2022-11-20 08:03 | CT_ITS ---
STUDY: CT CHEST, ABDOMEN T PELVIS WITH CONTRAST REASON FOR EXAM: Male, 82 years old. Assess response to tx;?ICI colitis. History of a bladder cancer. RADIATION DOSAGE (If Supplied By Facility): CTDIvol = ( 12.52 ) mGy, DLP = ( 775.12 ) mGycm TECHNIQUE: Transaxial imaging was performed following intravenous administration of Oral and IV Readi-CAT and 100mL Isovue-300. Multiplanar coronal and sagittal images were reformatted. Individualized dose optimization techniques were used for this CT. COMPARISON: Comparison is made with prior study dated July 20, 2022. FINDINGS: CHEST Stable 6 mm noncalcified nodule in the peripheral lateral aspect of the right lower lung as seen on axial image #79. There is no demonstrated pleural abnormality. There are calcifications of the coronary arteries. Normal mediastinum. Normal hilar regions. Normal unenhanced pulmonary arteries. There is atherosclerotic calcification of the aortic arch. There are multi-level degenerative changes of the thoracic spine. Since prior study, there are thin sclerotic healing of the lateral aspect of a right lower rib. The amount of surrounding soft tissue density has improved as well. ABDOMEN Stable 1 some mucous cyst in the peripheral inferior lateral aspect of the right lobe of the liver measuring approximately 1 cm. Normal gallbladder and extrahepatic biliary system. Normal spleen. Dilated pancreatic duct down to the ampulla of Vater. Correlation with MRCP or ERCP is recommended for further evaluation. Normal bilateral adrenal glands. Normal right kidney. Normal left kidney. Normal visualized stomach. Normal small intestine. Sigmoid diverticulosis. There is circumferential wall thickening of the sigmoid colon and transverse colon. This may represent diverticulitis. Clinical correlation is recommended. Small lymph nodes are seen in the root of the mesentery. There is diffuse atherosclerotic calcification of the abdominal aorta, without a demonstrated aneurysm. Normal inferior vena cava. Normal retroperitoneum. Normal abdominal wall. There are diffuse degenerative changes of the visualized lumbar spine. PELVIS Diffuse bladder wall thickening. The patient is status post TURP. Normal visualized small intestine. Normal visualized colon. There is no pelvic fluid. There is no pelvic lymphadenopathy or mass lesion. There is diffuse atherosclerotic calcification of the pelvic arteries. Sclerotic changes along the medial aspect of the left inferior pubic ramus. CT/CT Chest, Abd, Pel w/Contrast IMPRESSION: Interval decrease in size of a soft tissue overlying the inferior right-sided rib with sclerotic healing. Sclerotic changes of the medial aspect of the left inferior pubic ramus. Circumferential wall thickening of the left hemicolon. Colitis should be ruled out. Dilated pancreatic duct down to the level of the ampulla Vater. Correlation with the MRCP or ERCP recommended. Electronically Signed: Irvin Owen MD at 12:15 EDT ,
== END 2022-11-20 23:59 | disposition home or self-care (01) ==
PROVIDERS: PCP Internal Medicine; Referring Provider Nurse Practitioner Family; Visit Provider Nurse Practitioner Family
DX: C79.51 Secondary malignant neoplasm of bone (principal); C67.9 Malignant neoplasm of bladder, unspecified; C61 Malignant neoplasm of prostate; R07.9 Chest pain, unspecified; R97.20 Elevated prostate specific antigen [PSA]; R19.7 Diarrhea, unspecified; R00.1 Bradycardia, unspecified
CPT/HCPCS: 71260; 74177; 80048; J7030; Q9967; A4216

== ENCOUNTER 2022-11-22 15:36 | Inpatient (IN) | payer MEDICARE, OTHER, SELFPAY ==
[2022-11-22 15:38] VITALS: BP 151/76; PULSE 66; RESP 16; TEMP 36.6; O2SAT 97; BMI 24.5
--- NOTE | 2022-11-22 16:28 | EKG12_ITS ---
Test Reason : GEN ILLNESS Blood Pressure : / mmHG Vent. Rate : 059 BPM Atrial Rate : 059 BPM P-R Int : 166 ms QRS Dur : 092 ms QT Int : 490 ms P-R-T Axes : 053 -46 -18 degrees QTc Int : 485 ms Sinus bradycardia Left anterior fascicular block Nonspecific ST and T wave abnormality Prolonged QT Abnormal ECG Confirmed by IRINEO BERNARDO, CLEVELAND ([id number]), scientific publications editor WALKER ERAZO ([id number]) on 11/26/2022 11:43:52 AM Referred By: MOISES Confirmed By:CLEVELAND CABELLO MD
--- NOTE | 2022-11-22 16:29 | EDS_ITS ---
HPI History of Present Illness Chief Complaint: General Illness Narrative Narrative: 82-year-old male with history of metastatic prostate cancer on Keytruda with last dose on the of last month. He states it was his third dose. He is also doing a hormone injection for his prostate cancer. Patient follows with Dr. Weir. He states he is not eating very much and has a lot of nausea. He states he has a lot of chronic diarrhea as well. He had this worked up from an infectious standpoint and nothing has been found. Patient states he has been lightheaded, weak. He has been vomiting periodically. Patient denies fever, chills. He states today he was on the toilet and could not get up and needed assistance. He felt lightheaded. He states he is intermittently sweaty. He is not having chest pain. [facility] Medical History Ambulates with cane Anorexia Anxiety Bladder disease Cardiology follow-up encounter Colitis Depression Diarrhea Dilated pancreatic duct Encounter for education Former smoker History of echocardiogram History of edema History of pain when walking History of stress test Hypertension Hypokalemia Left leg swelling Loss of hearing Lymphedema Nonobstructive atherosclerosis of coronary artery Oral candidiasis Prostate disease Shortness of breath on exertion Trigeminal nerve disease Vomiting Wears glasses Home Medications carboxymethylcellulose 0.5 %-glycerin 0.9 % eye drops 1 drp ophthalmic (eye) PRN PRN Dry Eye(S) 09/26/21 [History Last Taken Unknown] sertraline 25 mg tablet (Zoloft) 25 mg PO DAILY 09/26/21 [History Last Taken 10/08/22] Handicap Parking Placard #1 ea 06/18/22 [Rx Last Taken Unknown] isosorbide mononitrate 30 mg tablet,extended release 24 hr 30 mg PO DAILY #30 tabs 06/18/22 [Rx Last Taken 10/08/22] metoprolol succinate 25 mg tablet,extended release 24 hr 25 mg PO DAILY #30 tabs 06/18/22 [Rx Last Taken 10/08/22] ibuprofen 600 mg tablet 600 mg PO Q6H PRN Pain 06/29/22 [History Last Taken Unknown] aspirin 81 mg chewable tablet 81 mg PO DAILY 07/04/22 [History Last Taken 10/08/22] polysaccharide iron complex 150 mg iron capsule (Ferrex) 150 mg PO DAILY 90 days #90 caps 07/27/22 [Rx Last Taken Unknown] bicalutamide 50 mg tablet 50 mg PO DAILY 10/03/22 [History Last Taken Unknown] loperamide 2 mg capsule (Imodium A-D) 2 mg PO Q6H PRN Diarrhea 10/03/22 [History Last Taken Unknown] mesalamine 1.2 gram tablet,delayed release 3.6 g PO DAILY #270 tabs 11/05/22 [Rx Last Taken Unknown] calcium carb-vit D3-minerals 600 mg calcium-200 unit tablet 1 tab PO DAILY 11/19/22 [History Last Taken Unknown] nystatin 100,000 unit/mL oral suspension 5 ml PO Q6H #473 mL 11/19/22 [Rx Last Taken Unknown] ondansetron 8 mg disintegrating tablet 8 mg PO Q8H PRN nausea and vomiting #30 tabs 11/20/22 [Rx Last Taken Unknown] omeprazole 20 mg capsule,delayed release 20 mg PO DAILY #30 caps 11/22/22 [Rx Last Taken Unknown] potassium chloride 20 mEq tablet,extended release(part/cryst) 20 meq PO TID 11/22/22 [History Last Taken Unknown] prednisone 50 mg tablet 20 mg PO DAILY 11/22/22 [History Last Taken Unknown] Allergy/AdvReac Type Severity Reaction Status Date / Time No Known Allergies Allergy Verified 11/22/22 19:35 Family History Sister Heart disease Surgical History History of left heart catheterization (10/03/21) Hx of colonoscopy Hx of left cataract extraction Hx of right cataract extraction Hx of transurethral resection of prostate Social History Smoking Status: Former smoker quit date: 07/15/82 pack-years: 25 alcohol intake: current alcohol intake frequency: holidays/special occasions only Alcohol type: beer caffeine: Yes Type: coffee Number of servings: 2 ROS ROS ED Review of Systems ROS Unobtainable: Denies due to encephalopathy Constitutional Constitutional ED: Reports sweats; Denies chills or fever(s) Eyes Eyes: Denies blurry vision or change in vision ENT ENT ED: Denies rhinorrhea or sore throat Cardiovascular Cardiovascular: Denies chest pain or palpitations Respiratory/Chest Respiratory/Chest: Reports dyspnea; Denies cough Gastrointestinal Gastrointestinal: Reports diarrhea, nausea and vomiting; Denies abdominal pain Genitourinary Genitourinary ED: Denies dysuria or hematuria Musculoskeletal Musculoskeletal: Denies myalgias Integumentary Denies abscess or Abrasions Neurologic Neurologic: Denies headache(s) or paresthesias Psychiatric Psychiatric: Denies anxiety or depression EXAM Physical Exam Const Vital Signs: 11/22/22 15:38 11/22/22 17:20 11/22/22 18:16 Temperature 97.9 F 98.9 F Temperature Source Temporal Temporal Pulse Rate 66 55 L Pulse Rate [Lying] 59 L Pulse Rate [Sitting (for 1 minute prior to obtaining)] 58 L Pulse Rate [Standing (for 1 minute prior to obtaining)] 61 Respiratory Rate 16 14 Blood Pressure 151/76 H 150/75 H Blood Pressure [Lying] 128/69 H Blood Pressure [Sitting (for 1 minute prior to obtaining)] 131/74 H Blood Pressure [Standing (for 1 minute prior to obtaining)] 123/74 H Blood Pressure Mean 101 100 Blood Pressure Mean [Lying] 88 Blood Pressure Mean [Sitting (for 1 minute prior to obtaining)] 93 Blood Pressure Mean [Standing (for 1 minute prior to obtaining)] 90 Pulse Ox 97 99 Oxygen Delivery Method Room Air Room Air General Appearance ED: NAD; Negative for pallor HEENT Reports dry mucous membranes Mouth ED: Yes dry mucous membranes Mouth: dry mucous membranes Eyes PERRL and EOMs intact bilaterally General Eye ED: Negative for pale conjunctiva or scleral icterus Chest Wall inspection of chest normal Resp normal respiratory effort and clear to auscultation bilaterally Auscultation: Negative for rales, rhonchi or wheezes Cardio regular rate and regular rhythm GI normal to inspection, nondistended, normoactive bowel sounds Extremity General Extremety ED: Negative for edema or tenderness General Extremity: Negative for edema Neuro oriented x3 and CN's II-XII intact bilaterally Sensorium / Orientation: alert Motor Exam: strength 5/5 throughout Psych mental status grossly normal Skin no rashes or lesions noted General Skin Exam: Negative for jaundice or pallor MDM MDM MDM Narrative Medical decision making narrative: Patient with metastatic prostate cancer. He is on chemotherapy with last dose given on the . Patient generally weak, decreased p.o. intake, lightheaded, nauseous. He has progressive diarrhea. He states he felt lightheaded when he tried to stand today. Differential includes but is not limited pneumonia, ACS, dehydration, hypokalemia, hyponatremia, UTI. CBC to assess white blood cell count, hemoglobin, platelets, differential. NURSERY LABORER to assess liver function, renal function, glucose, anion gap. Lipase to assess for pancreatitis. Orthostatics will be obtained to assess for slight hypotension. EKG, troponin, chest x-ray will also be obtained to rule out cardiac source. CBC shows no leukocytosis. Hemoglobin hematocrit are stable. Platelets are normal. CMP shows normal LFTs, renal function, electrolytes except for potassium which is 3.0 this can be repleted orally. Lipase is slightly elevated to 34. Did speak with Silvia Gallagher who called to inform me that the patient had had a CT chest abdomen pelvis recently which showed an interval improvement in his cancer. I had ordered a prednisone taper for him which was 70 mg and was to taper over 6 to 8 months. She also wanted to start him on a PPI. She also mentioned that he had a dilated pancreatic duct on the CT which they had ordered an MRCP for her. Today he is not really complaining of any chest or abdominal pain is much as he is feeling nauseous and weak. His EKG showed a normal sinus rhythm with a ventricular rate of [address]-T wave changes. QT slightly prol onged at 490. High-sensitivity troponin came back at 143. Given this the patient I think warrants admission given his diaphoresis and weakness. Patient was given aspirin 24 mg. He was given Zofran for his nausea. Chest x-ray on my interpretation shows no acute cardiopulmonary process. Radiologist interprets this and agrees. At this point the patient will be admitted to the hospitalist. Impression: 1. Elevated troponin 2. Debility 3. Hypokalemia 4. Diarrhea Lab Data Labs: Laboratory Results - last 24 hr 11/22/22 11/22/22 16:40 16:40 WBC 7.9 RBC 3.88 L Hgb 11.5 L Hct 35.1 L MCV 90.5 MCH 29.6 MCHC 32.8 RDW Std Deviation 42.7 RDW Coeff of Jagjit 13.0 Plt Count 182 MPV 10.2 Immature Gran % (Auto) 0.600 Neut % (Auto) 84.7 H Lymph % (Auto) 9.5 L [place] % (Auto) 4.7 Eos % (Auto) 0.1 Baso % (Auto) 0.4 Absolute Neuts (auto) 6.7 Absolute Lymphs (auto) 0.75 L Nucleated RBC % 0 Sodium 137 Potassium 3.0 L Chloride 106 Carbon Dioxide 24.0 Anion Gap 7 BUN 6 L Creatinine 0.81 Estim Creat Clear Calc 65.68 Est GFR (MDRD) Af Amer 116 Est GFR (MDRD) Non-Af 96 BUN/Creatinine Ratio 7.4 L Glucose 154 H Calcium 8.1 L Magnesium 1.8 Total Bilirubin 0.70 AST 25 ALT 20 Alkaline Phosphatase 102 Troponin I High Sens 143 H* Total Protein 5.9 L Albumin 2.9 L Globulin 3.0 Albumin/Globulin Ratio 1.0 Lipase 234 H Radiography Diagnostic Testing: Clinical Impression(s) from Imaging Studies Chest X-Ray 11/22/22 17:10 IMPRESSION: No definite acute or significant abnormality seen. Electronically Signed: Mariusz Catalan MD at 17:23 EDT , Discharge Plan Disposition Disposition: Acute Care Hospital [facility] Discharge Date/Time: 11/22/22 19:17
[2022-11-22 16:55] LABS: Absolute Lymphocyte Count 0.75 X10^3/uL (0.83-4.51); Absolute Neutrophil Count 6.7 X10^3/uL (2.0-7.7); Basophil# 0.03 X10^3/uL; Basophil% 0.4 % (0-1); Eosinophil# 0.01 X10^3/uL; Eosinophils% 0.1 % (0-5); Hematocrit 35.1 % (40-54); Hemoglobin 11.5 g/dL (13.0-16.5); Lymphocyte # 0.75 X10^3/ul (0.83-4.51); Lymphocyte % 9.5 % (19-41); Mean Corp Hgb Conc 32.8 g/dL (32-36); Mean Corpuscular Hgb 29.6 pg (27.0-32.0); Mean Corpuscular Volume 90.5 fL (80-94); Mean Platelet Vol. 10.2 fl (6.2-12.0); Monocyte# 0.37 X10^3/uL; Monocyte% 4.7 % (0-10); NRBC Flagged by Analyzer 0 % (0-5); Neutrophil # 6.67 X10^3/uL (2.7-7.7); Neutrophil % 84.7 % (47-70); Platelet Count 182 K/mm3 (150-450); RBC Distribution Width SD 42.7 fl (35.1-43.9); Red Blood Count 3.88 M/mm3 (4.6-6.2); White Blood Count 7.9 K/mm3 (4.4-11.0)
--- NOTE | 2022-11-22 17:10 | RAD_ITS ---
STUDY: X-RAY CHEST REASON FOR EXAM: Male, 82 years old. weakness TECHNIQUE: Single AP portable view of the chest. COMPARISON: 09/17/2021 FINDINGS: The lungs are clear and expanded. There is no demonstrated pleural abnormality. Normal size heart. Normal mediastinum and michelle. Normal visualized pulmonary arteries. There is atherosclerotic tortuosity of the aortic arch and descending thoracic aorta. There are diffuse degenerative changes of the visualized thoracic spine. There is degenerative osteoarthritis of the bilateral shoulders. There is no demonstrated abnormality of the visualized soft tissue structures of the upper abdomen. RAD/Chest 1 View (Portable) IMPRESSION: No definite acute or significant abnormality seen. Electronically Signed: Mariusz Catalan MD at 17:23 EDT ,
[2022-11-22 17:20] VITALS: BP 123/74; BP 128/69; BP 131/74; PULSE 58; PULSE 59; PULSE 61
[2022-11-22 17:25] LABS: AST(SGOT) 25 U/L (15-37); Alanine Aminotransfer ALT/SGPT 20 U/L (16-61); Albumin, Serum 2.9 g/dL (3.2-5.0); Alkaline Phosphatase 102 U/L (45-117); Anion Gap 7 (5-15); BUN 6 mg/dL (7-18); BUN/Creat Ratio 7.4 RATIO (10-20); Calcium,Total 8.1 mg/dL (8.5-10.1); Chloride 106 mmol/L (98-107); Creatinine, Serum 0.81 mg/dL (0.70-1.30); EST Glomerular Filtration Rate 96 mL/min (>60); Est Glom Filt Rate - Afr Amer 116 mL/min (>60); Estimated Creatinine Clearance 65.68 ml/min; Glucose 154 mg/dL (74-106); Lipase 234 U/L (13-75); Magnesium 1.8 mg/dL (1.6-2.6); Protein, Total 5.9 g/dL (6.4-8.2); Sodium Level 137 mmol/L (136-145); Troponin-I HS 143 pg/mL (3.0-78.0)
[2022-11-22] MEDS: 0.9% Normal Saline 1,000 ML 999 ML IV (17:35)
[2022-11-22] MEDS: Ondansetron 4 MG/2 ML Vial IV (17:35)
[2022-11-22] MEDS: Aspirin 81 MG TAB.CHEW 324 MG PO (17:36)
[2022-11-22 18:16] VITALS: BP 150/75; PULSE 55; RESP 14; TEMP 37.2; O2SAT 99
--- NOTE | 2022-11-22 18:41 | PCM.HP.STD ---
[facility] - General General Date of Admission: 11/22/22 HPI Narrative MONSE SOTELO, is a 82 M who presents to the hospital with weakness and debility. He has a history of a stage IV prostate cancer currently on Keytruda. He did have radiation of bony mets. Family brought him in today secondary to weakness his potassium was low and he has not been eating or drinking very well, magnesium was 1.8. He is denying any chest pain or shortness of breath does have an elevated troponin to 143, he states that he has previously had a cardiac work-up and was just placed on medication a few years ago. He is also been having some episodes of diarrhea family thinks that is related to his lack of p.o. intake however he also had a CT scan done by his oncologist as an outpatient that demonstrates partial colitis as well as a dilated pancreatic duct. Lipase in the ER was elevated however he has no abdominal pain symptoms and there is no peripancreatic stranding to indicate pancreatitis. [facility] Medical History Ambulates with cane Anorexia Anxiety Bladder disease Cardiology follow-up encounter Colitis Depression Diarrhea Dilated pancreatic duct Encounter for education Former smoker History of echocardiogram History of edema History of pain when walking History of stress test Hypertension Hypokalemia Left leg swelling Loss of hearing Lymphedema Nonobstructive atherosclerosis of coronary artery Oral candidiasis Prostate disease Shortness of breath on exertion Trigeminal nerve disease Vomiting Wears glasses Home Medications carboxymethylcellulose 0.5 %-glycerin 0.9 % eye drops 1 drp ophthalmic (eye) PRN PRN Dry Eye(S) 09/26/21 [History Last Taken Unknown] sertraline 25 mg tablet (Zoloft) 25 mg PO DAILY 09/26/21 [History Last Taken 10/08/22] Handicap Parking Placard #1 ea 06/18/22 [Rx Last Taken Unknown] isosorbide mononitrate 30 mg tablet,extended release 24 hr 30 mg PO DAILY #30 tabs 06/18/22 [Rx Last Taken 10/08/22] metoprolol succinate 25 mg tablet,extended release 24 hr 25 mg PO DAILY #30 tabs 06/18/22 [Rx Last Taken 10/08/22] ibuprofen 600 mg tablet 600 mg PO Q6H PRN Pain 06/29/22 [History Last Taken Unknown] aspirin 81 mg chewable tablet 81 mg PO DAILY 07/04/22 [History Last Taken 10/08/22] polysaccharide iron complex 150 mg iron capsule (Ferrex) 150 mg PO DAILY 90 days #90 caps 07/27/22 [Rx Last Taken Unknown] bicalutamide 50 mg tablet 50 mg PO DAILY 10/03/22 [History Last Taken Unknown] loperamide 2 mg capsule (Imodium A-D) 2 mg PO Q6H PRN Diarrhea 10/03/22 [History Last Taken Unknown] mesalamine 1.2 gram tablet,delayed release 3.6 g PO DAILY #270 tabs 11/05/22 [Rx Last Taken Unknown] calcium carb-vit D3-minerals 600 mg calcium-200 unit tablet 1 tab PO DAILY 11/19/22 [History Last Taken Unknown] nystatin 100,000 unit/mL oral suspension 5 ml PO Q6H #473 mL 11/19/22 [Rx Last Taken Unknown] ondansetron 8 mg disintegrating tablet 8 mg PO Q8H PRN nausea and vomiting #30 tabs 11/20/22 [Rx Last Taken Unknown] omeprazole 20 mg capsule,delayed release 20 mg PO DAILY #30 caps 11/22/22 [Rx Last Taken Unknown] potassium chloride 20 mEq tablet,extended release(part/cryst) 20 meq PO TID 11/22/22 [History Last Taken Unknown] prednisone 50 mg tablet 20 mg PO DAILY 11/22/22 [History Last Taken Unknown] Allergy/AdvReac Type Severity Reaction Status Date / Time No Known Allergies Allergy Verified 11/22/22 19:35 Family History Sister Heart disease Surgical History History of left heart catheterization (10/03/21) Hx of colonoscopy Hx of left cataract extraction Hx of right cataract extraction Hx of transurethral resection of prostate Social History Smoking Status: Former smoker quit date: 07/15/82 pack-years: 25 alcohol intake: current alcohol intake frequency: holidays/special occasions only Alcohol type: beer caffeine: Yes Type: coffee Number of servings: 2 ROS Constitutional Constitutional: Reports weakness; Denies chills, fatigue, fever(s) or malaise Eyes Eyes: Denies blurry vision ENT HEENT: Denies headache(s) or nasal discharge Cardiovascular Cardiovascular: Denies chest pain, dyspnea on exertion or syncope Respiratory/Chest Respiratory/Chest: Reports shortness of breath at rest; Denies cough or shortness of breath with exertion Gastrointestinal Gastrointestinal: Reports diarrhea; Denies constipation, nausea or vomiting Genitourinary Genitourinary: Denies dysuria Neurologic Neurologic: Denies focal weakness, numbness or tremor(s) Psychiatric Psychiatric: Denies anxiety or depression Vital Signs Vital Signs Vital Signs: 11/22/22 15:38 11/22/22 17:20 11/22/22 18:16 Temperature 97.9 F 98.9 F Temperature Source Temporal Temporal Pulse Rate 66 55 L Pulse Rate [Lying] 59 L Pulse Rate [Sitting (for 1 minute prior to obtaining)] 58 L Pulse Rate [Standing (for 1 minute prior to obtaining)] 61 Respiratory Rate 16 14 Blood Pressure 151/76 H 150/75 H Blood Pressure [Lying] 128/69 H Blood Pressure [Sitting (for 1 minute prior to obtaining)] 131/74 H Blood Pressure [Standing (for 1 minute prior to obtaining)] 123/74 H Blood Pressure Mean 101 100 Blood Pressure Mean [Lying] 88 Blood Pressure Mean [Sitting (for 1 minute prior to obtaining)] 93 Blood Pressure Mean [Standing (for 1 minute prior to obtaining)] 90 Pulse Ox 97 99 Oxygen Delivery Method Room Air Room Air Weight Weight: 161 lb 6.054 oz Body Mass Index (BMI) 24.5 Physical Exam Narrative General: Alert, Oriented x3, Cooperative, No apparent distress HEENT: Atraumatic, PERRLA, EOMI, Normocephalic Oral: Dry mucosa Neck: Supple, No JVD Lungs: Diminished, Normal air movement, No rhonchi, No wheeze, No rales Cardiovascular: Regular rate, Regular Rhythm, Normal S1, Normal S2, No murmurs Abdomen: Soft, Non Tender, Non-Distended, No Hepato-splenomegaly Extremities: No edema, Capillary Refill Less than 3 Seconds Skin: No rashes, No breakdown Musculoskeletal: No Tenderness to Palpation of Joints or Extremities Neurological: Motor Exam 5/5 strength throughout, Sensory exam intact to light touch and pain Psych/Mental Status: Normal Affect, Appropriate Results Lab / Micro Data Result Diagrams: 11/22/22 16:40 11/22/22 16:40 Labs: Laboratory Results - last 24 hr 11/22/22 16:40: WBC 7.9, RBC 3.88 L, Hgb 11.5 L, Hct 35.1 L, MCV 90.5, MCH 29.6, MCHC 32.8, RDW Std Deviation 42.7, RDW Coeff of Jagjit 13.0, Plt Count 182, MPV 10.2, Immature Gran % (Auto) 0.600, Neut % (Auto) 84.7 H, Lymph % (Auto) 9.5 L, [place] % (Auto) 4.7, Eos % (Auto) 0.1, Baso % (Auto) 0.4, Absolute Neuts (auto) 6.7, Absolute Lymphs (auto) 0.75 L, Nucleated RBC % 0 11/22/22 16:40: Sodium 137, Potassium 3.0 L, Chloride 106, Carbon Dioxide 24.0, Anion Gap 7, BUN 6 L, Creatinine 0.81, Estim Creat Clear Calc 65.68, Est GFR (MDRD) Af Amer 116, Est GFR (MDRD) Non-Af 96, BUN/Creatinine Ratio 7.4 L, Glucose 154 H, Calcium 8.1 L, Magnesium 1.8, Total Bilirubin 0.70, AST 25, ALT 20, Alkaline Phosphatase 102, Troponin I High Sens 143 H*, Total Protein 5.9 L, Albumin 2.9 L, Globulin 3.0, Albumin/Globulin Ratio 1.0, Lipase 234 H Radiology Impression Chest X-Ray 11/22/22 17:10 IMPRESSION: No definite acute or significant abnormality seen. Electronically Signed: Mariusz Catalan MD at 17:23 EDT , Assessment & Plan Assessment/Plan (1) Vomiting: (2) Hypokalemia: (3) Oral candidiasis: (4) Anorexia: PLAN: Plan 1. Weakness with diarrhea and colitis from Keytruda for his stage IV prostate cancer/thrush ? He has had response to Keytruda but is also had radiation of his bony mets ? Potassium a few days ago was low to 2.4, respond to 3.2 it is now back down to 3 he is also been having diarrhea ? We will check a phosphorus and replace his potassium magnesium was 1.8. ? Will continue steroids as previously prescribed by his oncologist for his colitis ? We will recheck lipase in the morning without any pain and signs of pancreatitis this could just be secondary to an elevated triglycerides ? He was noted to potentially have thrush a few days ago we will continue with his p.o. nystatin nothing obvious today ? Continue with mesalamine ? Continue with PPI 2. Hypertension ? Blood sugars are stable ? We will continue with his home blood pressure medications 3. Iron deficiency anemia ? Stable ? Continue with his iron 4. Anxiety/depression ? Stable ? Continue with Zoloft DVT: Lovenox 20-minute discussion on advance care planning was had about prognosis of his cancer and options including hospice as well as palliative care. He is currently on palliative care. Also discussed CODE STATUS Charges/Coding Visit Charges Inpatient E&M: 43431 Init Hosp L2 Procedures Hospitalists Procedures: 98199 Advncd Care Plan 30 Min
[2022-11-22 19:24] VITALS: BMI 23.5
[2022-11-22 19:34] VITALS: BP 134/78; PULSE 54; RESP 18; TEMP 36.7; O2SAT 100
[2022-11-22 20:31] LABS: Phosphorus 3.5 mg/dL (2.5-4.9); Triglycerides 67 mg/dL; Troponin-I HS 135 pg/mL (3.0-78.0)
[2022-11-22] MEDS: Potassium Chloride Oral Tablet 20 MEQ 40 MEQ PO (22:04)
[2022-11-22 22:22] LABS: Bacteria 0 SEEN /hpf (None Seen); Mucous, Urine 0 SEEN /hpf (<or=2+); Red Blood Cells-Urine 0 SEEN /hpf (0-5); White Blood Cells 0 SEEN /hpf (0-5)
[2022-11-22] MEDS: 0.9% Saline Lock 10 ML Syringe IV (22:23)
[2022-11-22] MEDS: 0.9% Normal Saline 1,000 ML 75 ML IV (22:23)
[2022-11-22] MEDS: NYSTATIN 500,000 UNIT/5 ML UDC 500000 UNIT PO (22:24)
[2022-11-22 22:32] LABS: Color, Urine Yellow (Yellow); Glucose, Dipstick Normal (Normal); Ketone-Dipstick 15 mg/dl (Negative); Leukocyte Esterase-Dipstick Negative /ul (Negative); Nitrite-Dipstick Negative (Negative); Occult Blood-Urine Negative /ul (Negative); Protein-Dipstick 15 mg/dl (Negative); Specific Gravity, Urine 1.015 (1.002-1.030); Urine Bilirubin Dipstick Negative (Negative); Urine Clarity Clear (Clear); Urine Urobilinogen Normal (Normal)
[2022-11-22 22:48] LABS: Squamous Epithelial Cells - UA 0-5 SEEN /hpf (0-5)
[2022-11-22 23:08] LABS: Troponin-I HS 146 pg/mL (3.0-78.0)
[2022-11-23] VITALS (7 sets, daily range): BP systolic 136–168; BP diastolic 76–114; PULSE 50–59; RESP 16–18; TEMP 36.4–36.8; O2SAT 97–99
[2022-11-23 05:49] LABS: Absolute Lymphocyte Count 1.21 X10^3/uL (0.83-4.51); Absolute Neutrophil Count 4.4 X10^3/uL (2.0-7.7); Basophil# 0.05 X10^3/uL; Basophil% 0.7 % (0-1); Eosinophil# 0.31 X10^3/uL; Eosinophils% 4.6 % (0-5); Hematocrit 33.4 % (40-54); Lymphocyte # 1.21 X10^3/ul (0.83-4.51); Lymphocyte % 17.9 % (19-41); Mean Corp Hgb Conc 32.9 g/dL (32-36); Mean Corpuscular Hgb 29.7 pg (27.0-32.0); Mean Corpuscular Volume 90.3 fL (80-94); Mean Platelet Vol. 9.6 fl (6.2-12.0); Monocyte# 0.77 X10^3/uL; Monocyte% 11.4 % (0-10); NRBC Flagged by Analyzer 0 % (0-5); Neutrophil # 4.41 X10^3/uL (2.7-7.7); Neutrophil % 65.1 % (47-70); Platelet Count 159 K/mm3 (150-450); RBC Distribution Width SD 43.2 fl (35.1-43.9); White Blood Count 6.8 K/mm3 (4.4-11.0)
[2022-11-23] MEDS: NYSTATIN 500,000 UNIT/5 ML UDC 500000 UNIT PO ×3 (05:58→17:34)
[2022-11-23 06:26] LABS: ALB/GLOB Ratio 0.9 RATIO (0.9-2.4); AST(SGOT) 19 U/L (15-37); Alanine Aminotransfer ALT/SGPT 19 U/L (16-61); Albumin, Serum 2.6 g/dL (3.2-5.0); Alkaline Phosphatase 93 U/L (45-117); Anion Gap 5 (5-15); BUN 8 mg/dL (7-18); BUN/Creat Ratio 14.4 RATIO (10-20); Chloride 109 mmol/L (98-107); Creatinine, Serum 0.55 mg/dL (0.70-1.30); EST Glomerular Filtration Rate 150 mL/min (>60); Est Glom Filt Rate - Afr Amer 181 mL/min (>60); Globulin 2.8 g/dL (2.2-4.2); Glucose 102 mg/dL (74-106); Lipase 231 U/L (13-75); Potassium 3.3 mmol/L (3.5-5.1); Protein, Total 5.4 g/dL (6.4-8.2); Sodium Level 139 mmol/L (136-145)
--- NOTE | 2022-11-23 07:32 | MRI_ITS ---
STUDY: MR CHOLANGIOPANCREATOGRAPHY (MRCP) REASON FOR EXAM: Male, 82 years old. PAIN CBD STONES PANCREATITIS abnormal CT- Hx of prostate CA with bayron mets,weakness TECHNIQUE: Standard MRCP technique was utilized. 3-D postprocessing images were obtained. COMPARISON: 11.20.22 ct. FINDINGS: Free fluid around liver. Gall Bladder: Normal gallbladder and extrahepatic biliary system. Cystic duct: Normal with no demonstrated fixed filling defect. Intrahepatic ducts: Normal visualized intrahepatic ducts with no demonstrated fixed filling defect, dilation or stricture. Common hepatic duct: Normal with no demonstrated fixed filling defect, dilation or stricture. Common bile duct: There is dilation of the common bile duct. A common bile duct stone is not seen. The CBD diameter is 13 mm. Pancreatic duct: dilated. MRI/MRCP Abdomen without Contrast IMPRESSION: There is dilation of the common bile duct. A common bile duct stone is not seen. The CBD diameter is 13 mm. Free fluid around liver. Electronically Signed: Aidan Fonseca MD at 19:00 EDT ,
[2022-11-23] MEDS: Enoxaparin 40 MG/0.4 ML Syringe SC (08:10)
[2022-11-23] MEDS: Sertraline 50 MG Tablet 25 MG PO (08:10)
[2022-11-23] MEDS: Pantoprazole Sodium 20 MG Tablet PO (08:11)
[2022-11-23] MEDS: Mesalamine 1.2 GM Tablet 3.6 GM PO (08:11)
[2022-11-23] MEDS: Aspirin 81 MG TAB.CHEW PO (08:11)
[2022-11-23] MEDS: Isosorbide Mononitrate 30 MG Tablet PO (08:11)
[2022-11-23] MEDS: Iron Polysaccharide Complex 150 MG CAPSULE PO (08:11)
[2022-11-23] MEDS: predniSONE 20 MG Tablet PO (10:45)
[2022-11-23] MEDS: 0.9% Normal Saline 1,000 ML 75 ML IV (10:45)
[2022-11-23] MEDS: Ensure Plus High Protein 120 ML LIQUID PO ×4 (10:45→21:53)
--- NOTE | 2022-11-23 13:31 | CASEMGMT ---
RN?CM?BOOT AND SHOE LABORER?CM?to room to meet with patient for initial transition planning/care coordination?assessment.?RN?CM?introduced self and role at [facility].? Pt voices understanding and consents to?assessment?at this time.? Pt resting in bed in no distress at this time.? Pt is A/O at this time and answers all questions appropriately.?? Care providers, pharmacy, and demographics verified/updated at this time. PCP: Dr Tran Specialists: Dr Morgan and Kusum, EMERGENCY SPILL RESPONSE TECHNICIAN,-oncology, Dr Viera-radiation oncology, Dr Leach-urology, [facility]/cardiology Preferred Pharmacy: [facility] Insurance: MCR, [employer] Prescription Benefit:?yes Living Will/HPOA:?Pt does not currently have LW/HCPOA and declines info at this time.? LNOK: , Carly. Dtr's, Pita and Sudha. Son, Danny. Living Arrangements: Lives w/ in one-story home w/basement w/2 steps to enter. Pt states he has been independent @ home w/ADL's and was using a walker. Pt's is on Hospice and she has private-duty aides that help w/her care and do the home mgmt tasks. He states he was helping w/caring for his @ night and on weekends, but he started becoming so weak himself that he has not been able to do that lately. His daughters have been coming @ night to help w/her care since he has been unable to and states they will need to start coming on the weekends now. He states they have a long-term policy that covers for the aides 9 hrs/day M-W, but otherwise it is private pay @ about $30/hr. He became tearful as he was discussing this, stating it is becoming so expensive to pay for the care. He does not think they would qualify for JOHNNIE and declines wanting to talk w/SW about this at this time. Transportation:?Pt states drives self and states no transportation concerns at this time.?Dtr's can assist when available, but states they both work during the day. DME: States has the following DME:?cane, walker, built-in shower seat. ? Pt states no need for further DME at this time.? HHC/SNF: No hx of either. Pt prefers to return home, if able, and declines wanting HHC, stating he has done OP therapy in the past and knows what exercises to do at home. He feels once the lightheadedness/dizziness and diarrhea resolves, he is hopeful he will be strong enough to go home, but if not, his 1st choice of SNF is [facility] and then [facility] is 2nd. He declines wanting list of other SNF options. KATE Enamorado, made aware. Pt made aware, if he does discharge home, if he decides later that he would like [facility], to f/u with his PCP. He voices understanding. PLAN:??PT/OT evals pending. D/C plan TBD by course of tx and progress w/therapy.. SNF vs Home. Tami BSN?RN?CM
--- NOTE | 2022-11-23 14:14 | CASEMGMT ---
Per RN CM if therapy recommends patient go somewhere for rehab patient's first choice would be [facility] and second is [place]. SW did ask Erika in TCU to review patient. Erika will need to review his therapy notes once in computer before she would be able to accept patient. Kelsea Pinedo DATA WAREHOUSING MANAGER HOLLI
[2022-11-23] MEDS: Metoprolol(XL)Succ 25 MG Tablet PO (14:37)
--- NOTE | 2022-11-23 18:39 | PCM.PN.HOSP ---
Reason for Visit Reason for Visit: Diagnoses Candidal stomatitis (11/22/22) Hypokalemia (11/22/22) Vomiting, unspecified (11/22/22) Anorexia (11/22/22) Subjective Subjective Patient was seen and examined today, he still has a feeling of dizziness at times when he gets up, he is taking care of his who is under hospice care at home and he is concerned he may not be able to take care of her. I talked with his oncologist today (Dr. Morgan) and confirmed that the dosage of prednisone the patient needs to be on a 60 mg a day with a tapering dose. I made the decision tonight to increase the patient's IV fluids and placed the patient on Valium at a low dose to see if this would eliminate his dizziness. Patient will be seen by physical therapy again tomorrow. Objective Data Objective Data Vital Signs: Vital Signs Temp Pulse Resp BP Pulse Ox O2 Del Method 98.1 F 59 L 16 147/76 H 98 Room Air 11/23/22 16:43 11/23/22 16:43 11/23/22 16:43 11/23/22 16:43 11/23/22 16:43 11/23/22 16:43 Oxygen Delivery Method Room Air Weight: 70.1 kg Body Mass Index (BMI) 23.5 Intake & Output: Intake and Output for Last 24 Hours 11/21/22 11/22/22 11/23/22 23:59 23:59 23:59 Intake Total 1000 / 1000 1427.5 / 1427.5 Output Total 700 / 700 Balance 1000 / 1000 727.5 / 727.5 Medical Nutrition Assessment Dietitian: Malnutrition Criteria Met Start: 11/23/22 12:01 Freq: Status: Active Protocol: Document 11/23/22 12:01 (Rec: 11/23/22 12:02 [id number]) Nutrition Malnutrition Evidence of Malnutrition Exists Yes Malnutrition (severe): Acute Illness/Injury Evidenced By Suboptimal Energy Intake ( Severe),Weight Loss (Severe) Clinical Problem Acute Disease or Injury Related Malnutrition Etiology severe, acute malnutrition related to inadequate energy intake Signs/Symptoms as evidenced by unintentional wt loss of 10.5#/6% < 1 month; estimated PO intake meeting < 50% of estimated energy needs > 5 days Status Active Problem Recommendation Dietitian Recommendations/Changes continue regular diet as tolerated; will adjust ensure to ensure plus high protein 120mL 4x/day w/medpass given evidence of malnutrition. Lab / Micro Data Result Diagrams: 11/23/22 05:26 11/23/22 05:26 Labs: Laboratory Results - last 24 hr 11/22/22 19:50: Phosphorus 3.5, Troponin I High Sens 135 H*, Triglycerides 67 11/22/22 22:12: Troponin I High Sens 146 H* 11/22/22 22:15: Urine Color Yellow, Urine Clarity Clear, Urine pH 6.0, Ur Specific [place] 1.015, Urine Protein 15 H, Urine Glucose (UA) Normal, Urine Ketones 15 H, Urine Occult Blood Negative, Urine Nitrite Negative, Urine Bilirubin Negative, Urine Urobilinogen Normal, Ur Leukocyte Esterase Negative, Urine RBC 0 SEEN, Urine WBC 0 SEEN, Ur Squamous Epith Cells 0-5 SEEN, Urine Bacteria 0 SEEN, Urine Mucus 0 SEEN 11/23/22 05:26: WBC 6.8, RBC 3.70 L, Hgb 11.0 L, Hct 33.4 L, MCV 90.3, MCH 29.7, MCHC 32.9, RDW Std Deviation 43.2, RDW Coeff of Jagjit 13.0, Plt Count 159, MPV 9.6, Immature Gran % (Auto) 0.300, Neut % (Auto) 65.1, Lymph % (Auto) 17.9 L, [place] % (Auto) 11.4 H, Eos % (Auto) 4.6, Baso % (Auto) 0.7, Absolute Neuts (auto) 4.4, Absolute Lymphs (auto) 1.21, Nucleated RBC % 0 11/23/22 05:26: Sodium 139, Potassium 3.3 L, Chloride 109 H, Carbon Dioxide 25.0, Anion Gap 5, BUN 8, Creatinine 0.55 L, Estim Creat Clear Calc 53.20, Est GFR (MDRD) Af Amer 181, Est GFR (MDRD) Non-Af 150, BUN/Creatinine Ratio 14.4, Glucose 102, Calcium 8.0 L, Total Bilirubin 0.50, AST 19, ALT 19, Alkaline Phosphatase 93, Total Protein 5.4 L, Albumin 2.6 L, Globulin 2.8, Albumin/Globulin Ratio 0.9, Lipase 231 H Physical Exam Const alert, oriented x3, no apparent distress and healthy appearing General Appearance: cooperative, well kempt and well developed Orientation / Consciousness: awake, oriented to person, oriented to place and oriented to time HEENT normocephalic, head/scalp atraumatic and moist oral mucous membranes Eyes PERRL, EOMs intact bilaterally and conjunctivae normal Neck supple, no JVD, thyroid normal and no carotid bruits General: trachea midline Resp normal respiratory effort, no retractions, no use of accessory muscles and clear to auscultation bilaterally Auscultation: Negative for rales, rhonchi or wheezes Cardio regular rate, regular rhythm, S1 normal heart sound, S2 normal heart sound, no murmurs, no rub and no gallops GI normal to inspection, nondistended, normoactive bowel sounds, soft to palpation, non-tender and non-distended Extremity no clubbing, cyanosis or edema Skin no rashes or lesions noted General Skin Exam: no breakdown Neuro oriented x3, CN's II-XII intact bilaterally, no focal motor deficits and no sensory deficits noted Sensorium / Orientation: awake and alert Speech: speech normal Psych affect normal Assessment & Plan Assessment/Plan (1) Debility: PLAN: Plan 1. Acute debility-multifactorial in nature, probably secondary to chronic diarrhea, hypokalemia, and metastatic bladder and prostate CA-patient will be seen by PT and OT, I am unsure whether the patient will be able to return home if he is not stronger. Patient understands this. 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-I increase the patient's prednisone dosage today #4 metastatic bladder cancer to the bone-complicates care, medical course, recovery, and prognosis #5 hypokalemia-patient was given oral potassium supplementation today, BMP will be rechecked tomorrow #6 dilated pancreatic duct-etiology unclear at this point, patient had an MRCP performed today and the results are pending at the time of this dictation #7 chronic anxiety/depression-patient is on Zoloft #8 iron deficiency anemia-patient is on oral iron supplementation #9 Central hypertension-patient is to remain on his present medications Total clinical time spent by myself addressing the patient's medical issues, reviewing all of his data, and collaborating with patient's care team: 35 minutes Charges/Coding Visit Charges Inpatient E&M: 16692 Subs Hosp L2
[2022-11-23] MEDS: Potassium Chloride Oral Tablet 20 MEQ 40 MEQ PO (18:56)
[2022-11-23] MEDS: predniSONE 20 MG Tablet 40 MG PO (18:57)
[2022-11-23] MEDS: diazePAM 2 MG Tablet PO (18:57)
[2022-11-23] MEDS: 0.9% Normal Saline 1,000 ML 100 ML IV (21:51)
[2022-11-24] VITALS (9 sets, daily range): BP systolic 134–181; BP diastolic 65–90; PULSE 51–84; RESP 12–16; TEMP 36.4–36.8; O2SAT 96–100
[2022-11-24] MEDS: NYSTATIN 500,000 UNIT/5 ML UDC 500000 UNIT PO ×5 (01:08→21:43)
[2022-11-24] MEDS: 0.9% Saline Lock 10 ML Syringe IV ×2 (03:31→09:26)
[2022-11-24] MEDS: hydrALAZINE 20 MG/ML Vial 5 MG IV (03:31)
[2022-11-24] MEDS: diazePAM 2 MG Tablet PO ×5 (05:21→21:42)
[2022-11-24] MEDS: 0.9% Normal Saline 1,000 ML 100 ML IV (07:44)
[2022-11-24] MEDS: Aspirin 81 MG TAB.CHEW PO (07:45)
[2022-11-24] MEDS: Iron Polysaccharide Complex 150 MG CAPSULE PO (07:46)
[2022-11-24] MEDS: predniSONE 20 MG Tablet 60 MG PO (07:46)
[2022-11-24] MEDS: Isosorbide Mononitrate 30 MG Tablet PO (07:46)
[2022-11-24] MEDS: Pantoprazole Sodium 20 MG Tablet PO (07:47)
[2022-11-24] MEDS: Mesalamine 1.2 GM Tablet 3.6 GM PO (07:47)
[2022-11-24] MEDS: Sertraline 50 MG Tablet 25 MG PO (07:47)
[2022-11-24] MEDS: Metoprolol(XL)Succ 25 MG Tablet PO (07:47)
[2022-11-24] MEDS: Enoxaparin 40 MG/0.4 ML Syringe SC (07:48)
[2022-11-24] MEDS: Ensure Plus High Protein 120 ML LIQUID PO ×2 (07:51→14:15)
--- NOTE | 2022-11-24 07:52 | NURSING ---
AM medications given early d/t high BP
--- NOTE | 2022-11-24 08:33 | CT_ITS ---
HISTORY: dizziness, history of metastatic bladder cancer. TECHNIQUE: Multiple axial images were obtained of the head before and after the intravenous restriction 50 mL Isovue 370. A radiation dose optimization technique was used for this scan. 293 images. COMPARISON: None. FINDINGS: BRAIN PARENCHYMA: Multiple foci and zones of low attenuation in the bilateral cerebral white matter compatible with chronic small vessel ischemic gliosis. No enhancing lesion in the brain parenchyma. No acute intra-axial hemorrhage identified. CSF SPACES: Mild bifrontal atrophy. No midline shift or other significant mass effect. No acute extra-axial hemorrhage seen. OTHER: Intact calvarium without suspicious osteoblastic or osteolytic lesion. No significant air fluid levels in the paranasal sinuses or mastoid air cells. Bilateral lens resections. CT/Brain/Head W/WO Contrast IMPRESSION: No acute intracranial process or enhancing intracranial mass identified. Chronic involutional and white matter changes. Electronically Signed: Yumi Gomez MD at 9:49 EDT ,
[2022-11-24 08:36] LABS: Anion Gap 7 (5-15); BUN 9 mg/dL (7-18); BUN/Creat Ratio 15.2 RATIO (10-20); Calcium,Total 8.7 mg/dL (8.5-10.1); Chloride 105 mmol/L (98-107); Creatinine, Serum 0.59 mg/dL (0.70-1.30); EST Glomerular Filtration Rate 139 mL/min (>60); Est Glom Filt Rate - Afr Amer 168 mL/min (>60); Glucose 150 mg/dL (74-106); Potassium 3.5 mmol/L (3.5-5.1); Sodium Level 136 mmol/L (136-145)
[2022-11-24] MEDS: Lisinopril 20 MG Tablet PO (09:26)
--- NOTE | 2022-11-24 10:08 | CASEMGMT ---
Addendum entered by Ana Laura Rodríguez 11/24/22 14:41: RAMIRO HURTADO in to follow-up with patient's preferences for HHC. Patient prefers [facility]. RN CM called [facility] and left message for referral. RN CM updated patient that discharge is planned for Saturday, but CM will follow-up on Saturday with HHC setup. Patient voiced understanding. Original Note: RN GENESIS reviewed therapy notes, recommending HHC at discharge. RN CM in to discuss HHC and discharge needs with patient. Patient agreeable to HHC at discharge. A list of HHC providers including quality and resource use data and consistent with the patient?s preferred geographical region, medical needs, and insurance network were provided from the [facility] Guide. Patient to review list and provide preferences. CM will continue to follow this patient and plan for a safe discharge.
--- NOTE | 2022-11-24 15:09 | EKG12_ITS ---
Test Reason : RHYTHM CHANGE ? Blood Pressure : / mmHG Vent. Rate : 069 BPM Atrial Rate : 069 BPM P-R Int : 168 ms QRS Dur : 098 ms QT Int : 406 ms P-R-T Axes : 063 -43 006 degrees QTc Int : 435 ms Sinus rhythm with occasional Premature ventricular complexes Left axis deviation Abnormal ECG When compared with ECG of 22-NOV-2022 16:43, MANUAL COMPARISON REQUIRED, DATA IS UNCONFIRMED Confirmed by IRINEO BERNARDO, [place] ([id number]), newspaper photo editor WALKER ERAZO ([id number]) on 11/27/2022 10:01:20 AM Referred By: CARLOS Confirmed By:CLEVELAND CABELLO MD
--- NOTE | 2022-11-24 15:47 | PCM.PN.HOSP ---
Reason for Visit Reason for Visit: Diagnoses Candidal stomatitis (11/22/22) Hypokalemia (11/22/22) Vomiting, unspecified (11/22/22) Other malaise (11/22/22) Anorexia (11/22/22) Subjective Subjective Patient was seen and examined today, he walked well with physical therapy today, however, patient states he feels too weak to go home at this time and he still expressing some slight dizziness. I elected to place the patient on an additional blood pressure medication due to elevated blood pressure today. I also elected to perform a CT of the head with contrast to rule out stroke or metastases from his bladder cancer, the CT was unremarkable for any acute process. Patient's MRCP yesterday showed dilation of the common bile duct and the pancreatic duct, patient will have to undergo an ERCP either as an outpatient or during this hospitalization if he stays in the hospital. Patient is having no complaints of any abdominal pain. Objective Data Objective Data Vital Signs: Vital Signs Temp Pulse Resp BP Pulse Ox O2 Del Method 98.0 F 60 14 134/78 H 98 Room Air 11/24/22 09:26 11/24/22 09:26 11/24/22 09:26 11/24/22 09:26 11/24/22 09:26 11/24/22 09:26 Oxygen Delivery Method Room Air Weight: 70.1 kg Body Mass Index (BMI) 23.5 Intake & Output: Intake and Output for Last 24 Hours 11/22/22 11/23/22 11/24/22 23:59 23:59 23:59 Intake Total 1000 / 1000 2852.5 / 2852.5 1415.00 / 1415.00 Output Total 700 / 700 Balance 1000 / 1000 2152.5 / 2152.5 1415.00 / 1415.00 Medical Nutrition Assessment Dietitian: Malnutrition Criteria Met Start: 11/23/22 12:01 Freq: Status: Active Protocol: Document 11/23/22 12:01 (Rec: 11/23/22 12:02 [id number]) Nutrition Malnutrition Evidence of Malnutrition Exists Yes Malnutrition (severe): Acute Illness/Injury Evidenced By Suboptimal Energy Intake ( Severe),Weight Loss (Severe) Clinical Problem Acute Disease or Injury Related Malnutrition Etiology severe, acute malnutrition related to inadequate energy intake Signs/Symptoms as evidenced by unintentional wt loss of 10.5#/6% < 1 month; estimated PO intake meeting < 50% of estimated energy needs > 5 days Status Active Problem Recommendation Dietitian Recommendations/Changes continue regular diet as tolerated; will adjust ensure to ensure plus high protein 120mL 4x/day w/medpass given evidence of malnutrition. Lab / Micro Data Result Diagrams: 11/23/22 05:26 11/24/22 07:35 Labs: Laboratory Results - last 24 hr 11/24/22 07:35: Sodium 136, Potassium 3.5, Chloride 105, Carbon Dioxide 24.0, Anion Gap 7, BUN 9, Creatinine 0.59 L, Estim Creat Clear Calc 53.20, Est GFR (MDRD) Af Amer 168, Est GFR (MDRD) Non-Af 139, BUN/Creatinine Ratio 15.2, Glucose 150 H, Calcium 8.7 Radiography Diagnostic Testing: Radiology Impression MRCP 11/23/22 07:32 IMPRESSION: There is dilation of the common bile duct. A common bile duct stone is not seen. The CBD diameter is 13 mm. Free fluid around liver. Electronically Signed: Aidan Fonseca MD at 19:00 EDT , Brain CT 11/24/22 08:33 IMPRESSION: No acute intracranial process or enhancing intracranial mass identified. Chronic involutional and white matter changes. Electronically Signed: Yumi Gomez MD at 9:49 EDT , Physical Exam Narrative alert, oriented x3, he has a depressed affect General Appearance: cooperative, well kempt and well developed Orientation / Consciousness: awake, oriented to person, oriented to place and oriented to time HEENT normocephalic, head/scalp atraumatic and moist oral mucous membranes Eyes PERRL, EOMs intact bilaterally and conjunctivae normal Neck supple, no JVD, thyroid normal and no carotid bruits General: trachea midline Resp normal respiratory effort, no retractions, no use of accessory muscles and clear to auscultation bilaterally Auscultation: Negative for rales, rhonchi or wheezes Cardio regular rate, regular rhythm, S1 normal heart sound, S2 normal heart sound, no murmurs, no rub and no gallops GI normal to inspection, nondistended, normoactive bowel sounds, soft to palpation, non-tender and non-distended Extremity no clubbing, cyanosis or edema Skin no rashes or lesions noted General Skin Exam: no breakdown Neuro oriented x3, CN's II-XII intact bilaterally, no focal motor deficits and no sensory deficits noted Sensorium / Orientation: awake and alert Speech: speech normal Psych Patient has depressed affect Assessment & Plan Assessment/Plan (1) Dilated pancreatic duct: (2) Debility: PLAN: Plan 1. Acute debility-multifactorial in nature, probably secondary to chronic diarrhea, hypokalemia, and metastatic bladder and prostate CA-patient will continue to be seen by PT and OT, I am unsure whether the patient will be able to return home if he is not stronger. Patient understands this. However, patient did pretty well with physical therapy today. 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-complicates care, medical course, recovery, and prognosis #5 hypokalemia-patient was given oral potassium supplementation today, BMP will be rechecked tomorrow #6 dilated pancreatic duct and common bile duct-etiology unclear at this point, patient will need follow-up with an ERCP #7 chronic anxiety/depression-patient is on Zoloft #8 iron deficiency anemia-patient is on oral iron supplementation #9 Essential hypertension-patient was placed on lisinopril in addition to his other blood pressure medication today Total clinical time spent by myself addressing the patient's medical issues, reviewing all of his data, and collaborating with patient's care team: 36 minutes Charges/Coding Visit Charges Inpatient E&M: 46918 Subs Hosp L2
[2022-11-24 21:00] LABS: Bedside Glucose 165 mg/dL (74-106)
[2022-11-25 03:00] VITALS: BP 136/78; PULSE 74; RESP 16; TEMP 37.2; O2SAT 99
[2022-11-25] MEDS: NYSTATIN 500,000 UNIT/5 ML UDC 500000 UNIT PO (05:46)
[2022-11-25] MEDS: Aspirin 81 MG TAB.CHEW PO (08:24)
[2022-11-25] MEDS: Isosorbide Mononitrate 30 MG Tablet PO (08:25)
[2022-11-25] MEDS: Mesalamine 1.2 GM Tablet 3.6 GM PO (08:25)
[2022-11-25] MEDS: Iron Polysaccharide Complex 150 MG CAPSULE PO (08:25)
[2022-11-25] MEDS: predniSONE 20 MG Tablet 60 MG PO (08:25)
[2022-11-25 08:26] VITALS: PULSE 60
[2022-11-25] MEDS: Metoprolol(XL)Succ 25 MG Tablet PO (08:26)
[2022-11-25] MEDS: Sertraline 50 MG Tablet 25 MG PO (08:26)
[2022-11-25] MEDS: Pantoprazole Sodium 20 MG Tablet PO (08:26)
[2022-11-25] MEDS: Lisinopril 20 MG Tablet PO (08:26)
[2022-11-25] MEDS: Enoxaparin 40 MG/0.4 ML Syringe SC (08:27)
[2022-11-25] MEDS: Ensure Plus High Protein 120 ML LIQUID PO (08:32)
[2022-11-25] MEDS: diazePAM 2 MG Tablet PO (08:32)
[2022-11-25 08:34] VITALS: BP 125/77; PULSE 61; RESP 12; TEMP 36.7; O2SAT 96
--- NOTE | 2022-11-25 11:09 | DCINST_ITS ---
Discharge Instructions Diet Discharge Diet: No restrictions Activity Discharge Activity: Return to Normal Activity Weight Bearing Status: Full weight bearing Follow Up Care Test Results: Test results from this visit will be discussed in further detail at your follow- up appointment, if applicable. Discharge Plan Admission Admit Date/Time: 11/22/22 18:35 Primary Reason for Your Visit: dizziness, colitis, weakness Attending Provider: Roland Dodd Primary Care Provider: Levar Tran Consulting Providers: Remy Gr Instructions Additional Instructions / Restrictions: Follow-up with Dr. Talavera concerning your dilated pancreatic and bile duct Discharge Orders/Prescriptions Prescriptions: New lisinopril 20 mg Tablet 20 mg PO DAILY Qty: 30 0RF Rx Instructions: For blood pressure prednisone 20 mg Tablet 60 mg PO BREAKFAST Qty: 60 0RF Rx Instructions: Take 3 daily, your oncologist will have to taper this dosage down diazepam 2 mg Tablet 2 mg PO 4X/DAY PRN (Reason: Dizziness) Qty: 20 0RF Rx Instructions: 1- 4 times a day as needed for dizziness sertraline 50 mg Tablet 50 mg PO DAILY Qty: 30 0RF Continued carboxymethylcellulose-glycern 0.5-0.9 % drops 1 drp ophthalmic (eye) PRN PRN (Reason: Dry Eye(S)) Label Comments: 1 drop into both eyes as directed metoprolol succinate 25 mg tablet extended release 24 hr 25 mg PO DAILY Qty: 30 11RF isosorbide mononitrate 30 mg tablet extended release 24 hr 30 mg PO DAILY Qty: 30 11RF polysaccharide iron complex [Ferrex 150] 150 mg iron capsule 150 mg PO DAILY 90 Days Qty: 90 3RF mesalamine 1.2 gram tablet,delayed release (DR/EC) 3.6 g PO DAILY Qty: 270 1RF calcium carbonate-vit D3-min 600 mg calcium- 200 unit tablet 1 tab PO DAILY nystatin 100,000 unit/mL suspension 5 ml PO Q6H Qty: 473 1RF Rx Instructions: swish and swallow ibuprofen 600 mg Tablet 600 mg PO Q6H PRN (Reason: Pain) aspirin 81 mg Tablet,Chewable 81 mg PO DAILY bicalutamide 50 mg tablet 50 mg PO DAILY Label Comments: TAKE 1 TABLET BY MOUTHCONCE DAILY potassium chloride 20 mEq tablet,ER particles/crystals 20 meq PO TID (DME) Handicap Parking Placard See Rx Instructions .Route .MEDSUPPLY Qty: 1 0RF Rx Instructions: As directed ondansetron 8 mg tablet,disintegrating 8 mg PO Q8H PRN (Reason: nausea and vomiting) Qty: 30 1RF omeprazole 20 mg capsule,delayed release(DR/EC) 20 mg PO DAILY Qty: 30 2RF Changed loperamide [Imodium A-D] 2 mg Capsule 4 mg PO Q6H PRN (Reason: Diarrhea) Qty: 1 0RF Discontinued prednisone 50 mg Tablet 20 mg PO DAILY Rx Instructions: x10 days No Action sertraline [Zoloft] 25 mg tablet 25 mg PO DAILY Referrals / Follow Up: Cb Morgan MD [Med Staff - Active Staff] - Within 1 Week Jim Talavera DO [Med Staff - Active Staff] - See Referral Note (Call Dr. Talavera's office for follow-up appointment, you will need an ERCP procedure due to dilated pancreatic and bile duct, tell office the doctor discussed this with Dr. Talavera while the patient was in the hospital) Levar Tran MD [Primary Care Provider] - Within 2 Weeks Disposition Disposition (needs filled in before D/C Order can be placed): Home, Self Care
--- NOTE | 2022-11-25 11:21 | PCM.DC.SUM ---
Providers Date of Admission: 11/22/22 Date of Discharge: 11/25/22 Primary Care Physician: Dr. Levar Tran MD Reason For Visit: WEAKNESS, HYPOKALEMIA, ELEVATED TROPONIN Diagnosis Discharge Diagnosis (1) Dilated pancreatic duct: Status: Acute Code(s): K86.89 - Other specified diseases of pancreas (2) Debility: Status: Acute Code(s): R53.81 - Other malaise Plan 1. Acute debility-multifactorial in nature, probably secondary to chronic diarrhea, hypokalemia, and metastatic bladder and prostate CA-patient will continue to be seen by PT and OT, I am unsure whether the patient will be able to return home if he is not stronger. Patient understands this. However, patient did pretty well with physical therapy today. 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-complicates care, medical course, recovery, and prognosis #5 hypokalemia-patient was given oral potassium supplementation today, BMP will be rechecked tomorrow #6 dilated pancreatic duct and common bile duct-etiology unclear at this point, patient will need follow-up with an ERCP #7 chronic anxiety/depression-patient is on Zoloft #8 iron deficiency anemia-patient is on oral iron supplementation #9 Essential hypertension-patient was placed on lisinopril in addition to his other blood pressure medication today #10 acute severe protein and caloric malnutrition related to inadequate energy intake as evidenced by unintentional weight loss of 10.5 pounds in less than a month, estimated p.o. intake meeting less than 50% of estimated energy needs more than 5 days-regular diet will be continued, Ensure plus high-protein 120 mL 4 times a day with med Pass will be given Total clinical time spent by myself addressing the patient's medical issues, reviewing all of his data, and collaborating with patient's care team: 36 minutes Medications at Discharge Home Medications carboxymethylcellulose 0.5 %-glycerin 0.9 % eye drops 1 drp ophthalmic (eye) PRN PRN Dry Eye(S) 09/26/21 sertraline 25 mg tablet (Zoloft) 25 mg PO DAILY 09/26/21 Handicap Parking Placard #1 ea 06/18/22 isosorbide mononitrate 30 mg tablet,extended release 24 hr 30 mg PO DAILY #30 tabs 06/18/22 metoprolol succinate 25 mg tablet,extended release 24 hr 25 mg PO DAILY #30 tabs 06/18/22 ibuprofen 600 mg tablet 600 mg PO Q6H PRN Pain 06/29/22 aspirin 81 mg chewable tablet 81 mg PO DAILY 07/04/22 polysaccharide iron complex 150 mg iron capsule (Ferrex) 150 mg PO DAILY 90 days #90 caps 07/27/22 bicalutamide 50 mg tablet 50 mg PO DAILY 10/03/22 mesalamine 1.2 gram tablet,delayed release 3.6 g PO DAILY #270 tabs 11/05/22 calcium carb-vit D3-minerals 600 mg calcium-200 unit tablet 1 tab PO DAILY 11/19/22 nystatin 100,000 unit/mL oral suspension 5 ml PO Q6H #473 mL 11/19/22 ondansetron 8 mg disintegrating tablet 8 mg PO Q8H PRN nausea and vomiting #30 tabs 11/20/22 omeprazole 20 mg capsule,delayed release 20 mg PO DAILY #30 caps 11/22/22 potassium chloride 20 mEq tablet,extended release(part/cryst) 20 meq PO TID 11/22/22 diazepam 2 mg tablet 2 mg PO 4X/DAY PRN Dizziness #20 tabs 11/25/22 lisinopril 20 mg tablet 20 mg PO DAILY #30 tabs 11/25/22 loperamide 2 mg capsule (Imodium A-D) 4 mg PO Q6H PRN Diarrhea #1 cap 11/25/22 prednisone 20 mg tablet 60 mg PO BREAKFAST #60 tabs 11/25/22 sertraline 50 mg tablet 50 mg PO DAILY #30 tabs 11/25/22 Hospital Course Operations None Procedures None Summary of Care Provided Minutes Spent on Discharge: 33 Hospital Course: This 82-year-old white male was seen in the emergency room at [facility] with a chief complaint of generalized weakness and diarrhea, he has been under treatment for metastatic bladder cancer and has colitis from Keytruda. Work-up in the emergency room showed the patient's potassium to be slightly low, he was weak and it was decided to admit the patient to PCU and have PT and OT see the patient and treat the diarrhea. Patient also had a history of a dilated pancreatic duct, an MRCP was performed which showed the presence of a dilated pancreatic and bile duct. Patient was given IV fluids during his hospitalization and placed on high-dose prednisone, his blood pressure medication had to be adjusted during his hospital stay. Patient did well walking with physical therapy but maintained that he still felt weak and dizzy at times, I gave him the choice of either going to a skilled care facility which he might have to pay for out of his own pocket or go home-patient had family member support at home-the patient chose to go home. On 11/25/2022, patient was seen and examined: On examination he appeared in good health and spirits. Vital signs as documented. Skin warm and dry and without overt rashes. Neck without JVD, neck was supple, trachea midline, thyroid was normal. Lungs clear bilaterally, normal air movement was noted. Heart exam notable for regular rhythm, normal sounds and absence of murmurs, rubs or gallops. Abdomen unremarkable and without evidence of organomegaly, masses, or abdominal aortic enlargement. Bowel sounds are present, abdomen is not distended. Extremities nonedematous, no cyanosis was noted, no clubbing was noted. Neuro: Cranial nerves II through XII are grossly intact, no focal motor deficits were noted, sensation to light touch and pinprick intact, motor exam 5/5 throughout. Psych: Patient is alert and oriented x3, he has a depressed affect I talked to his daughter by phone prior to his discharge home, I went over medication changes with her (Vani Forrester) and I decided to increase the patient's antidepressant as an outpatient. I also talked briefly with Dr. Morgan by phone about his prednisone dosage for his colitis. Patient was discharged home in stable condition on 11/25/2022. Medical Records Data Medical Nutrition Assessment Dietitian: Malnutrition Criteria Met Start: 11/23/22 12:01 Freq: Status: Active Protocol: Document 11/23/22 12:01 (Rec: 11/23/22 12:02 [id number]) Nutrition Malnutrition Evidence of Malnutrition Exists Yes Malnutrition (severe): Acute Illness/Injury Evidenced By Suboptimal Energy Intake ( Severe),Weight Loss (Severe) Clinical Problem Acute Disease or Injury Related Malnutrition Etiology severe, acute malnutrition related to inadequate energy intake Signs/Symptoms as evidenced by unintentional wt loss of 10.5#/6% < 1 month; estimated PO intake meeting < 50% of estimated energy needs > 5 days Status Active Problem Recommendation Dietitian Recommendations/Changes continue regular diet as tolerated; will adjust ensure to ensure plus high protein 120mL 4x/day w/medpass given evidence of malnutrition. Weight / BMI Weight Weight: 70.1 kg Body Mass Index (BMI) 23.5 ABG / Lab / Microbiology Data Result Diagrams: 11/23/22 05:26 11/24/22 07:35 Laboratory: Laboratory Results - last 24 hr 11/24/22 20:39: POC Glucose 165 H D/C Instructions Discharge Diet: No restrictions Weight Bearing Status: Full weight bearing Meaningful Use Info Meaningful Use Diagnoses (Choose all that apply): None applicable Discharge Plan Admission Admit Date/Time: 11/22/22 18:35 Primary Reason for Your Visit: dizziness, colitis, weakness Attending Provider: Roland Dodd Primary Care Provider: Levar Tran Consulting Providers: Remy Gr Instructions Additional Instructions / Restrictions: Follow-up with Dr. Talavera concerning your dilated pancreatic and bile duct Discharge Orders/Prescriptions Prescriptions: New lisinopril 20 mg Tablet 20 mg PO DAILY Qty: 30 0RF Rx Instructions: For blood pressure prednisone 20 mg Tablet 60 mg PO BREAKFAST Qty: 60 0RF Rx Instructions: Take 3 daily, your oncologist will have to taper this dosage down diazepam 2 mg Tablet 2 mg PO 4X/DAY PRN (Reason: Dizziness) Qty: 20 0RF Rx Instructions: 1- 4 times a day as needed for dizziness sertraline 50 mg Tablet 50 mg PO DAILY Qty: 30 0RF Continued carboxymethylcellulose-glycern 0.5-0.9 % drops 1 drp ophthalmic (eye) PRN PRN (Reason: Dry Eye(S)) Label Comments: 1 drop into both eyes as directed metoprolol succinate 25 mg tablet extended release 24 hr 25 mg PO DAILY Qty: 30 11RF isosorbide mononitrate 30 mg tablet extended release 24 hr 30 mg PO DAILY Qty: 30 11RF polysaccharide iron complex [Ferrex 150] 150 mg iron capsule 150 mg PO DAILY 90 Days Qty: 90 3RF mesalamine 1.2 gram tablet,delayed release (DR/EC) 3.6 g PO DAILY Qty: 270 1RF calcium carbonate-vit D3-min 600 mg calcium- 200 unit tablet 1 tab PO DAILY nystatin 100,000 unit/mL suspension 5 ml PO Q6H Qty: 473 1RF Rx Instructions: swish and swallow ibuprofen 600 mg Tablet 600 mg PO Q6H PRN (Reason: Pain) aspirin 81 mg Tablet,Chewable 81 mg PO DAILY bicalutamide 50 mg tablet 50 mg PO DAILY Label Comments: TAKE 1 TABLET BY MOUTHCONCE DAILY potassium chloride 20 mEq tablet,ER particles/crystals 20 meq PO TID (DME) Handicap Parking Placard See Rx Instructions .Route .MEDSUPPLY Qty: 1 0RF Rx Instructions: As directed ondansetron 8 mg tablet,disintegrating 8 mg PO Q8H PRN (Reason: nausea and vomiting) Qty: 30 1RF omeprazole 20 mg capsule,delayed release(DR/EC) 20 mg PO DAILY Qty: 30 2RF Changed loperamide [Imodium A-D] 2 mg Capsule 4 mg PO Q6H PRN (Reason: Diarrhea) Qty: 1 0RF Discontinued prednisone 50 mg Tablet 20 mg PO DAILY Rx Instructions: x10 days No Action sertraline [Zoloft] 25 mg tablet 25 mg PO DAILY Referrals / Follow Up: Cb Morgan MD [Med Staff - Active Staff] - Within 1 Week Jim Talavera DO [Med Staff - Active Staff] - See Referral Note (Call Dr. Talavera's office for follow-up appointment, you will need an ERCP procedure due to dilated pancreatic and bile duct, tell office the doctor discussed this with Dr. Talavera while the patient was in the hospital) Levar Tran MD [Primary Care Provider] - Within 2 Weeks Disposition Disposition (needs filled in before D/C Order can be placed): Home, Self Care Charges/Coding Visit Charges Inpatient E&M: 44997 Disch Hosp >30min
--- NOTE | 2022-11-26 16:05 | CASEMGMT ---
RAMIRO HURTADO NOTE: Per RIAZ Cuellar RN, CM, Kayce @ [facility] states is able to accept pt and that they will call pt to set up SOC appt. Tami AGSCA RN CM
== END 2022-11-25 12:57 | disposition home health service (06) | DRG 393 ==
LOC: ED 18:07 → PCU 18:25
PROVIDERS: Admitting Provider Family Medicine; Emergency Provider Student in an Organized Health Care Education/Training Program; PCP Internal Medicine; Visit Provider Internal Medicine
DX: K52.1 Toxic gastroenteritis and colitis (principal); E43 Unspecified severe protein-calorie malnutrition; C79.51 Secondary malignant neoplasm of bone; B37.0 Candidal stomatitis; K83.8 Other specified diseases of biliary tract; K86.89 Other specified diseases of pancreas; C61 Malignant neoplasm of prostate; C67.9 Malignant neoplasm of bladder, unspecified; E87.6 Hypokalemia; D50.9 Iron deficiency anemia, unspecified; I25.10 Atherosclerotic heart disease of native coronary artery without angina pectoris; I10 Essential (primary) hypertension; R63.0 Anorexia; R77.8 Other specified abnormalities of plasma proteins; R53.81 Other malaise; Z87.891 Personal history of nicotine dependence; T45.1X5A Adverse effect of antineoplastic and immunosuppressive drugs, initial encounter; F32.A Depression, unspecified
CPT/HCPCS: 36415; 70470; 71045; 71260; 74177; 74181; 80048; 80053; 81001; 82962; 83690; 83735; 84100; 84478; 84484; 85025; 93005; 97110; 97116; 97162; 97166; 97535; 97802; 99285; J7030; J7050; Q9967; A4216; J2405

== ENCOUNTER → 2022-11-29 | Outpatient (CLI) | payer MEDICARE, OTHER, SELFPAY ==
--- NOTE | 2022-11-29 09:20 | NM_ITS ---
CLINICAL: 82-year-old male with history of carcinoma of the urinary bladder. WHOLE BODY 99m Tc MDP RADIONUCLIDE BONE SCINTIGRAPHY COMPARISON: Previous whole body bone scintigraphy study dated 07/23/2022 FINDINGS: Following the intravenous administration of 25.2 mCi of 99m Tc MDP, whole body bone images reveal: 1. Newly and persistently visualized increased uptake is noted in the fourth lumbar vertebra, the left proximal-distal femoral diaphysis, the distal left femoral metaphysis medially, the right proximal-mid tibial diaphysis, the distal right tibial metaphysis, the right posterior lateral ninth rib, left midfoot, the second and third digit of the left forefoot, the left inferior and superior pubic ramus. 1. Facilitated uptake remains apparent in the right midfoot, the dorsal aspect of the right hindfoot, the sternoclavicular compartments of both shoulders, the acromioclavicular compartment of the right shoulder, the mid cervical spine posteriorly on the right. 3. The remaining skeletal structures are scintigraphically unremarkable with normal-appearing renal images and urinary bladder activity identified. NM/Bone Scan Whole Body IMPRESSION: 1. Both revisualized and newly apparent uptake noted in the axial as well as appendicular skeleton remains consistent with osteoblastic bone metastasis. 2. 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 3. Overall compared to the previous whole body bone scintigraphy study dated 07/23/2022, there is interim scintigraphic progression of defined skeletal metastatic disease. Electronically Signed: Dom White, at 23:01 EDT ,
== END | disposition home or self-care (01) ==
PROVIDERS: PCP Internal Medicine; Referring Provider Nurse Practitioner Family; Visit Provider Nurse Practitioner Family
DX: C67.9 Malignant neoplasm of bladder, unspecified (principal); C79.51 Secondary malignant neoplasm of bone; K52.9 Noninfective gastroenteritis and colitis, unspecified; R19.7 Diarrhea, unspecified
CPT/HCPCS: 36415; 78306; 80053; 82784; 82785; 83516; 83615; 84165; 85025; 85652; 86140; 86225; 86235; 86255; 86256; 86334; A9503

== ENCOUNTER → 2022-12-11 | Outpatient (CLI) | payer MEDICARE, OTHER, SELFPAY ==
--- NOTE | 2022-12-11 07:36 | MRI_ITS ---
EXAM: MR HEAD WITHOUT AND WITH INTRAVENOUS CONTRAST CLINICAL INDICATION: r/o brain metastasis TECHNIQUE: Multiplanar and multisequence MR images of the brain were obtained without and with intravenous contrast. CONTRAST: IV Clariscan. COMPARISON: MRI brain with and without contrast 07/20/2005. FINDINGS: BRAIN AND EXTRA-AXIAL SPACES: Following IV contrast administration, there are no abnormally enhancing lesions intra-axially and extra-axially. Prominent CSF spaces overlying the frontal poles due to prominent subarachnoid space. No intra- or extra-axial hemorrhage. No evidence of acute infarct. No intracranial mass or mass effect. There is preservation of the yang/white matter interface. Posterior fossa structures are unremarkable. Basal cisterns are patent. No focal signal abnormalities throughout the brain parenchyma in all pulse sequences. No communicating or noncommunicating hydrocephalus. SELLA: Unremarkable. Normal sella turcica, pituitary gland, infundibular stalk, optic chiasm and hypothalamus. AUDITORY SYSTEM: Unremarkable. The internal auditory canals are patent. BONES/JOINTS: Unremarkable. No discrete lytic or blastic abnormalities. SINUSES: Unremarkable as visualized. Clear. MASTOID AIR CELLS: Unremarkable as visualized. Clear. ORBITS: Unremarkable as visualized. Both globes, extraocular muscles, optic nerves and retrobulbar fat appear unremarkable. VASCULATURE: Unremarkable as visualized. Normal flow voids in the major intracranial circulation. MRI/Brain W/WO Contrast IMPRESSION: 1. No MRI evidence of brain metastases. 2. Prominent CSF spaces overlying the frontal poles due to prominent subarachnoid space rather than subdural hygromas. These are the only new findings when compared to 07/20/2005. Electronically Signed: Sedrick Olivera MD at 12:47 EDT ,
== END | disposition home or self-care (01) ==
LOC: MRI 07:21
PROVIDERS: PCP Internal Medicine; Referring Provider Nurse Practitioner Family; Visit Provider Nurse Practitioner Family
DX: C67.9 Malignant neoplasm of bladder, unspecified (principal); C79.51 Secondary malignant neoplasm of bone
CPT/HCPCS: 70553; A9575

== ENCOUNTER → 2023-01-04 | Outpatient (CLI) | payer MEDICARE, OTHER, SELFPAY ==
[2023-01-10 04:07] LABS: Calprotectin, Stool 1050 ug/g (0-120)
== END | disposition home or self-care (01) ==
LOC: LABSPEC 08:36
PROVIDERS: PCP Internal Medicine; Visit Provider Internal Medicine Medical Oncology
DX: R19.7 Diarrhea, unspecified (principal); K58.9 Irritable bowel syndrome, unspecified
CPT/HCPCS: 83630; 83993

== ENCOUNTER 2023-01-07 13:58 | Inpatient (IN) | payer MEDICARE, OTHER, SELFPAY ==
[2023-01-07 13:59] VITALS: BP 145/81; PULSE 86; RESP 20; TEMP 37.6; O2SAT 94; BMI 22.6
[2023-01-07 14:03] VITALS: BP 145/81; PULSE 86; RESP 20; TEMP 37.6; O2SAT 94
--- NOTE | 2023-01-07 14:18 | EDS_ITS ---
HPI HPI - GI History of Present Illness Chief Complaint: Diarrhea Narrative Narrative: 82-year-old male with metastatic bladder cancer and is a patient of Dr. Morgan. He is currently on Lupron every [address] Leach. He had some issues with some diarrhea and recently was on high-dose steroid therapy which was tapered down. Since he was taken off the steroids he started to develop diarrhea again. He states his stool is always black because he takes a lot of iron supplements. His chief complaint today is that he is generally weak and he cannot eat. He was able to eat a little bit of egg salad sandwich yesterday. He is told to be on a BRAT diet. He had a little bit of rice as well yesterday. He has not been able to eat anything today. He is accompanied by his daughter. When asked why he does not eat he states he just does not have the energy to get up and do so. He states he also has trouble eating in general. He denies having any nausea. His daughter states that they were seen by Dr. Talavera and she tells me that endoscopy would likely make his symptoms worse so they held off on it. He is on Creon provided by Dr. Talavera. He is currently been started on 20 mg of prednisone again which is supposed to be twice daily but he is only been taking it once a day. He denies having a fever. He denies a cough. ? [facility] Medical History Ambulates with cane Anemia Anorexia Anxiety Bladder disease Cardiology follow-up encounter Colitis Debility Depression Diarrhea Dilated pancreatic duct Dizziness Encounter for education Fatigue Former smoker History of echocardiogram History of edema History of pain when walking History of stress test Hypertension Hypokalemia Left leg swelling Loss of hearing Lymphedema Nonobstructive atherosclerosis of coronary artery Oral candidiasis Prostate disease Shortness of breath on exertion Trigeminal nerve disease Vomiting Wears glasses Home Medications carboxymethylcellulose 0.5 %-glycerin 0.9 % eye drops 1 drp ophthalmic (eye) PRN PRN Dry Eye(S) 09/26/21 [History Last Taken 01/06/23] isosorbide mononitrate 30 mg tablet,extended release 24 hr 30 mg PO DAILY #30 tabs 06/18/22 [Rx Last Taken 01/06/23] ibuprofen 600 mg tablet 600 mg PO Q6H PRN Pain 06/29/22 [History Last Taken Unknown] aspirin 81 mg chewable tablet 81 mg PO DAILY 07/04/22 [History Last Taken 01/06/23] polysaccharide iron complex 150 mg iron capsule (Ferrex) 150 mg PO DAILY 90 days #90 caps 07/27/22 [Rx Last Taken 01/06/23] bicalutamide 50 mg tablet 50 mg PO DAILY 10/03/22 [History Last Taken 01/06/23] mesalamine 1.2 gram tablet,delayed release 3.6 g PO DAILY #270 tabs 11/05/22 [Rx Last Taken 01/06/23] omeprazole 20 mg capsule,delayed release 20 mg PO DAILY #30 caps 11/22/22 [Rx Last Taken 01/06/23] potassium chloride 20 mEq tablet,extended release(part/cryst) 20 meq PO TID 11/22/22 [History Last Taken 01/06/23] loperamide 2 mg capsule (Imodium A-D) 4 mg PO Q6H PRN Diarrhea #1 cap 11/25/22 [Rx Last Taken Unknown] [id number] 36,000-114,000-180,000 unit capsule,delay rel (Creon) See Rx Instructions PO .COMPLEX #540 caps 12/25/22 [Rx Last Taken 01/06/23] metoprolol succinate 25 mg tablet,extended release 24 hr 25 mg PO DAILY 01/03/23 [History Last Taken 01/06/23] prednisone 20 mg tablet 20 mg PO BID #60 tabs 01/03/23 [Rx Last Taken 01/06/23] mirtazapine 15 mg tablet 15 mg PO QHS . 01/07/23 [History Last Taken 01/06/23] Allergy/AdvReac Type Severity Reaction Status Date / Time No Known Allergies Allergy Verified 01/07/23 13:58 Family History Sister Heart disease Surgical History History of left heart catheterization (10/03/21) Hx of colonoscopy Hx of left cataract extraction Hx of right cataract extraction Hx of transurethral resection of prostate Social History Smoking Status: Former smoker quit date: 07/15/82 pack-years: 25 alcohol intake: current alcohol intake frequency: holidays/special occasions only Alcohol type: beer caffeine: Yes Type: coffee Number of servings: 2 EXAM Physical Exam Const Vital Signs: 01/07/23 13:59 01/07/23 14:03 01/07/23 17:58 Temperature 99.6 F H 99.6 F H Temperature Source Oral Oral Pulse Rate 86 86 87 Respiratory Rate 20 H 20 H 21 H Blood Pressure 145/81 H 145/81 H 114/76 Blood Pressure Mean 102 102 88 Pulse Ox 94 94 91 Oxygen Delivery Method Room Air Room Air Room Air 01/07/23 18:11 Temperature 99.7 F H Temperature Source Oral Pulse Rate 85 Respiratory Rate 18 Blood Pressure 110/68 Blood Pressure Mean 82 Pulse Ox 91 Oxygen Delivery Method Room Air MDM MDM MDM Narrative Medical decision making narrative: Patient presenting with generalized weakness, inability eat, inability to ambulate. He has history of metastatic cancer on chemotherapy. Differential includes dehydration, electrolyte abnormalities, anemia, pneumonia, UTI, viral etiology. CBC to assess white blood cell count, hemoglobin, platelets. CMP to assess liver function, renal function, glucose, electrolytes. Urinalysis to assess for UTI. Patient given IV fluids. CBC and CMP are unremarkable. Urinalysis negative for infection. Chest x-ray on my interpretation shows no acute cardiopulmonary process. The radiologist interprets this and agrees. Patient did come back with influenza B. Patient needed a lot of assistance to get to the restroom it took 2 people. The daughter expresses concern that she is caring for her mother at home who is on hospice and she is not able to take care of her father as well needing so much care. She cannot help him to the restroom on her own. She request admission. I discussed with the hospitalist and she is amenable to admission. Impression: 1. Diarrhea 2. Debility 3. Influenza B Lab Data Labs: Laboratory Results - last 24 hr 01/07/23 01/07/23 01/07/23 14:00 14:00 14:03 WBC 6.5 RBC 3.95 L Hgb 12.0 L Hct 36.2 L MCV 91.6 MCH 30.4 MCHC 33.1 RDW Std Deviation 46.4 H RDW Coeff of Jagjit 13.8 Plt Count 275 MPV 9.2 Immature Gran % (Auto) 0.600 Neut % (Auto) 49.6 Lymph % (Auto) 30.6 [place] % (Auto) 18.6 H Eos % (Auto) 0.0 Baso % (Auto) 0.6 Absolute Neuts (auto) 3.2 Absolute Lymphs (auto) 1.99 Nucleated RBC % 0 Sodium 134 L Potassium 4.1 Chloride 100 Carbon Dioxide 26.0 Anion Gap 8 BUN 10 Creatinine 0.95 Estim Creat Clear Calc 55.43 Est GFR (MDRD) Af Amer 97 Est GFR (MDRD) Non-Af 80 BUN/Creatinine Ratio 10.5 Glucose 138 H Calcium 8.9 Magnesium 2.2 Total Bilirubin 0.50 Direct Bilirubin 0.20 AST 24 ALT 20 Alkaline Phosphatase 162 H Total Protein 6.9 Albumin 2.8 L Globulin 4.1 Lipase 47 Urine Color Urine Clarity Urine pH Ur Specific [place] Urine Protein Urine Glucose (UA) Urine Ketones Urine Occult Blood Urine Nitrite Urine Bilirubin Urine Urobilinogen Ur Leukocyte Esterase Urine RBC Urine WBC Ur Squamous Epith Cells Urine Bacteria Urine Mucus POC Glucose 134 H 01/07/23 16:40 WBC RBC Hgb Hct MCV MCH MCHC RDW Std Deviation RDW Coeff of Jagjit Plt Count MPV Immature Gran % (Auto) Neut % (Auto) Lymph % (Auto) [place] % (Auto) Eos % (Auto) Baso % (Auto) Absolute Neuts (auto) Absolute Lymphs (auto) Nucleated RBC % Sodium Potassium Chloride Carbon Dioxide Anion Gap BUN Creatinine Estim Creat Clear Calc Est GFR (MDRD) Af Amer Est GFR (MDRD) Non-Af BUN/Creatinine Ratio Glucose Calcium Magnesium Total Bilirubin Direct Bilirubin AST ALT Alkaline Phosphatase Total Protein Albumin Globulin Lipase Urine Color Yellow Urine Clarity Clear Urine pH 6.0 Ur Specific [place] 1.010 Urine Protein Negative Urine Glucose (UA) Normal Urine Ketones Negative Urine Occult Blood Negative Urine Nitrite Negative Urine Bilirubin Negative Urine Urobilinogen Normal Ur Leukocyte Esterase Negative Urine RBC 0 SEEN Urine WBC 0 SEEN Ur Squamous Epith Cells 0 SEEN Urine Bacteria 0 SEEN Urine Mucus 0 SEEN POC Glucose Radiography Diagnostic Testing: Clinical Impression(s) from Imaging Studies Chest X-Ray 01/07/23 14:41 IMPRESSION: Horizontal thick linear subsegmental atelectasis in the right in right lung base, new since 11/22/2022. Electronically Signed: Sedrick Olivera MD at 15:14 EDT , Discharge Plan Triage Chief Complaint: Diarrhea Other Complaint: Fatigue ED Provider: Ata Ibrahim Dx/Rx/DC Orders Prescriptions: No Action carboxymethylcellulose-glycern 0.5-0.9 % drops 1 drp ophthalmic (eye) PRN PRN (Reason: Dry Eye(S)) Label Comments: 1 drop into both eyes as directed isosorbide mononitrate 30 mg tablet extended release 24 hr 30 mg PO DAILY Qty: 30 11RF polysaccharide iron complex [Ferrex 150] 150 mg iron capsule 150 mg PO DAILY 90 Days Qty: 90 3RF mesalamine 1.2 gram tablet,delayed release (DR/EC) 3.6 g PO DAILY Qty: 270 1RF Creon 36,000-114,000- 180,000 unit capsule,delayed release(DR/EC) See Rx Instructions PO .COMPLEX Qty: 540 1RF Rx Instructions: take 1-2 with snacks and 2-3 with meals Voucher metoprolol succinate 25 mg tablet extended release 24 hr 25 mg PO DAILY prednisone 20 mg tablet 20 mg PO BID Qty: 60 0RF ibuprofen 600 mg Tablet 600 mg PO Q6H PRN (Reason: Pain) aspirin 81 mg Tablet,Chewable 81 mg PO DAILY bicalutamide 50 mg tablet 50 mg PO DAILY Label Comments: TAKE 1 TABLET BY MOUTHCONCE DAILY potassium chloride 20 mEq tablet,ER particles/crystals 20 meq PO TID loperamide [Imodium A-D] 2 mg Capsule 4 mg PO Q6H PRN (Reason: Diarrhea) Qty: 1 0RF mirtazapine 15 mg tablet 15 mg PO QHS Label Comments: Take 1 tablet by mouthEdaily at bedtime. omeprazole 20 mg capsule,delayed release(DR/EC) 20 mg PO DAILY Qty: 30 2RF Primary Care Provider: Levar Tran Referrals: Levar Tran MD [Primary Care Provider] -
[2023-01-07 14:21] LABS: Bedside Glucose 134 mg/dL (74-106)
[2023-01-07 14:33] LABS: Absolute Lymphocyte Count 1.99 X10^3/uL (0.83-4.51); Absolute Neutrophil Count 3.2 X10^3/uL (2.0-7.7); Basophil# 0.04 X10^3/uL; Basophil% 0.6 % (0-1); Hematocrit 36.2 % (40-54); Lymphocyte # 1.99 X10^3/ul (0.83-4.51); Lymphocyte % 30.6 % (19-41); Mean Corp Hgb Conc 33.1 g/dL (32-36); Mean Corpuscular Hgb 30.4 pg (27.0-32.0); Mean Corpuscular Volume 91.6 fL (80-94); Mean Platelet Vol. 9.2 fl (6.2-12.0); Monocyte# 1.21 X10^3/uL; Monocyte% 18.6 % (0-10); NRBC Flagged by Analyzer 0 % (0-5); Neutrophil # 3.22 X10^3/uL (2.7-7.7); Neutrophil % 49.6 % (47-70); Platelet Count 275 K/mm3 (150-450); RBC Distribution Width CV 13.8 % (11.6-14.6); RBC Distribution Width SD 46.4 fl (35.1-43.9); Red Blood Count 3.95 M/mm3 (4.6-6.2); White Blood Count 6.5 K/mm3 (4.4-11.0)
[2023-01-07] MEDS: 0.9% Normal Saline 1,000 ML 1000 ML IV (14:39)
--- NOTE | 2023-01-07 14:41 | RAD_ITS ---
EXAM: XR CHEST, 1 VIEW CLINICAL INDICATION: weakness TECHNIQUE: Frontal view of the chest. COMPARISON: 11/22/2022. FINDINGS: LUNGS AND PLEURAL SPACES: Thick horizontal linear subsegmental atelectasis in the right lung base. No pneumothorax. No effusion. HEART: Unremarkable. Cardiac silhouette not enlarged. MEDIASTINUM: Central airways and mediastinal contour are unremarkable. BONES/JOINTS: Old fracture deformity of the right posterior ninth rib is unchanged. SOFT TISSUES: Unremarkable. RAD/Chest 1 View (Portable) IMPRESSION: Horizontal thick linear subsegmental atelectasis in the right in right lung base, new since 11/22/2022. Electronically Signed: Sedrick Olivera MD at 15:14 EDT ,
[2023-01-07 14:51] LABS: AST(SGOT) 24 U/L (15-37); Alanine Aminotransfer ALT/SGPT 20 U/L (16-61); Albumin, Serum 2.8 g/dL (3.2-5.0); Alkaline Phosphatase 162 U/L (45-117); Anion Gap 8 (5-15); BUN 10 mg/dL (7-18); BUN/Creat Ratio 10.5 RATIO (10-20); Calcium,Total 8.9 mg/dL (8.5-10.1); Chloride 100 mmol/L (98-107); Creatinine, Serum 0.95 mg/dL (0.70-1.30); EST Glomerular Filtration Rate 80 mL/min (>60); Est Glom Filt Rate - Afr Amer 97 mL/min (>60); Estimated Creatinine Clearance 55.43 ml/min; Globulin 4.1 g/dL (2.2-4.2); Glucose 138 mg/dL (74-106); Lipase 47 U/L (13-75); Magnesium 2.2 mg/dL (1.6-2.6); Potassium 4.1 mmol/L (3.5-5.1); Protein, Total 6.9 g/dL (6.4-8.2); Sodium Level 134 mmol/L (136-145)
[2023-01-07 16:48] LABS: Bacteria 0 SEEN /hpf (None Seen); Mucous, Urine 0 SEEN /hpf (<or=2+); Red Blood Cells-Urine 0 SEEN /hpf (0-5); Squamous Epithelial Cells - UA 0 SEEN /hpf (0-5); White Blood Cells 0 SEEN /hpf (0-5)
[2023-01-07 17:00] LABS: Color, Urine Yellow (Yellow); Glucose, Dipstick Normal (Normal); Ketone-Dipstick Negative (Negative); Leukocyte Esterase-Dipstick Negative /ul (Negative); Nitrite-Dipstick Negative (Negative); Occult Blood-Urine Negative /ul (Negative); Protein-Dipstick Negative (Negative); Urine Bilirubin Dipstick Negative (Negative); Urine Clarity Clear (Clear); Urine Urobilinogen Normal (Normal)
[2023-01-07 17:58] VITALS: BP 114/76; PULSE 87; RESP 21; O2SAT 91
--- NOTE | 2023-01-07 18:09 | NURSING ---
DR BLACK FOR DR DE LEON
[2023-01-07 18:11] VITALS: BP 110/68; PULSE 85; RESP 18; TEMP 37.6; O2SAT 91
--- NOTE | 2023-01-07 18:18 | NURSING ---
MED SURG WAYNE INFLUENZA B, DEBILITY
--- NOTE | 2023-01-07 19:56 | PCM.HP.STD ---
HPI - General General Date of Admission: 01/07/23 Date of Service: 01/07/23 Chief Complaint: Poor p.o. intake/diarrhea/generalized weakness HPI Narrative MONSE SOTELO, is a 82 M who presented to the emergency department at [facility] on 01/07/2022 complaining of poor p.o. intake/diarrhea/generalized weakness. Patient has a history of metastatic prostate cancer as well as bladder cancer and is currently undergoing chemotherapy and being managed by Dr. Morgan. 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 This was initiated on 11/22/2022. His diarrhea had resolved while he was on steroids and his prednisone taper was stopped on 12/18/2022. His diarrhea did start up again shortly after and has been problematic since then. He also has a lack of taste and very poor p.o. intake. He does take supplements with Ensure twice daily however he continues to get weaker at home and having ongoing weight loss. Prednisone was reinitiated however family was uncertain on instructions and it was to be taken 20 mg twice daily and they were only taking this 20 mg daily. Patient states he has extremely loose stool and large volume diarrhea about 3 times a day. Evidently, while he was on steroids he was feeling much better and his oral intake increased as well. He lives with his daughter and . His is currently in hospice and his daughter is helping take care of her. They do have a caregiver that comes in on a daily basis and the patient had a near fall today due to his significant weakness. Vital signs on presentation show a temperature of 99.6, heart rate 86, blood pressure 145/81, respiratory rate was 20 and oxygen saturations were 91 and 94% on room air. His CBC was overall unremarkable and stable but it did show a monocytosis at 18.6%. His chemistry panel shows mild hyponatremia with a sodium of 134 but was otherwise unremarkable. His UA was on remarkable. His chest x-ray was unremarkable. He had a lactoferrin done yesterday which was positive for fecal leukocytes upon review its been positive previously. His last C. difficile test was on 12/04/2022 and it was negative. Rapid flu was done and was positive for influenza B. [facility] Medical History Ambulates with cane Anemia Anorexia Anxiety Bladder disease Cardiology follow-up encounter Colitis Debility Depression Diarrhea Dilated pancreatic duct Dizziness Encounter for education Fatigue Former smoker History of echocardiogram History of edema History of pain when walking History of stress test Hypertension Hypokalemia Left leg swelling Loss of hearing Lymphedema Nonobstructive atherosclerosis of coronary artery Oral candidiasis Prostate disease Shortness of breath on exertion Trigeminal nerve disease Vomiting Wears glasses Home Medications carboxymethylcellulose 0.5 %-glycerin 0.9 % eye drops 1 drp ophthalmic (eye) PRN PRN Dry Eye(S) 09/26/21 [History Last Taken 01/06/23] isosorbide mononitrate 30 mg tablet,extended release 24 hr 30 mg PO DAILY #30 tabs 06/18/22 [Rx Last Taken 01/06/23] ibuprofen 600 mg tablet 600 mg PO Q6H PRN Pain 06/29/22 [History Last Taken Unknown] aspirin 81 mg chewable tablet 81 mg PO DAILY 07/04/22 [History Last Taken 01/06/23] polysaccharide iron complex 150 mg iron capsule (Ferrex) 150 mg PO DAILY 90 days #90 caps 07/27/22 [Rx Last Taken 01/06/23] bicalutamide 50 mg tablet 50 mg PO DAILY 10/03/22 [History Last Taken 01/06/23] mesalamine 1.2 gram tablet,delayed release 3.6 g PO DAILY #270 tabs 11/05/22 [Rx Last Taken 01/06/23] omeprazole 20 mg capsule,delayed release 20 mg PO DAILY #30 caps 11/22/22 [Rx Last Taken 01/06/23] potassium chloride 20 mEq tablet,extended release(part/cryst) 20 meq PO TID 11/22/22 [History Last Taken 01/06/23] loperamide 2 mg capsule (Imodium A-D) 4 mg PO Q6H PRN Diarrhea #1 cap 11/25/22 [Rx Last Taken Unknown] [id number] 36,000-114,000-180,000 unit capsule,delay rel (Creon) See Rx Instructions PO .COMPLEX #540 caps 12/25/22 [Rx Last Taken 01/06/23] metoprolol succinate 25 mg tablet,extended release 24 hr 25 mg PO DAILY 01/03/23 [History Last Taken 01/06/23] prednisone 20 mg tablet 20 mg PO BID #60 tabs 01/03/23 [Rx Last Taken 01/06/23] mirtazapine 15 mg tablet 15 mg PO QHS . 01/07/23 [History Last Taken 01/06/23] Allergy/AdvReac Type Severity Reaction Status Date / Time No Known Allergies Allergy Verified 01/07/23 13:58 Family History Sister Heart disease Surgical History History of left heart catheterization (10/03/21) Hx of colonoscopy Hx of left cataract extraction Hx of right cataract extraction Hx of transurethral resection of prostate Social History Smoking Status: Former smoker quit date: 07/15/82 pack-years: 25 alcohol intake: current alcohol intake frequency: holidays/special occasions only Alcohol type: beer caffeine: Yes Type: coffee Number of servings: 2 Vital Signs Vital Signs Vital Signs: 01/07/23 13:59 01/07/23 14:03 01/07/23 17:58 Temperature 99.6 F H 99.6 F H Temperature Source Oral Oral Pulse Rate 86 86 87 Respiratory Rate 20 H 20 H 21 H Blood Pressure 145/81 H 145/81 H 114/76 Blood Pressure Mean 102 102 88 Pulse Ox 94 94 91 Oxygen Delivery Method Room Air Room Air Room Air 01/07/23 18:11 Temperature 99.7 F H Temperature Source Oral Pulse Rate 85 Respiratory Rate 18 Blood Pressure 110/68 Blood Pressure Mean 82 Pulse Ox 91 Oxygen Delivery Method Room Air Weight Weight: 67.7 kg Body Mass Index (BMI) 22.6 Physical Exam Const alert, oriented x3, no apparent distress and well nourished Constitutional Narrative: Thin, elderly, white male, appears quite fatigued but nontoxic, lying in bed, daughter at bedside General Appearance: cooperative HEENT normocephalic and head/scalp atraumatic HEENT Narrative: Mild to moderate hearing loss, mucous membranes are slightly dry, no thrush Eyes PERRL, EOMs intact bilaterally and conjunctivae normal Eyes Narrative: No scleral icterus Neck no lymphadenopathy and supple Neck Narrative: Trachea midline, no thyroid enlargement Resp normal respiratory effort, no retractions, no use of accessory muscles and clear to auscultation bilaterally Auscultation: Negative for rales, rhonchi or wheezes Cardio regular rate, regular rhythm, S1 normal heart sound, S2 normal heart sound, no murmurs, no rub, no gallops and no clicks GI normal to inspection, nondistended, normoactive bowel sounds, soft to palpation and non-tender Extremity Extremity Narrative: Left lower extremity edema that patient reports is chronic related to radiation and metastatic disease to his left tibia, no clubbing or cyanosis, no right lower remedy Skin no rashes or lesions noted, no wounds, skin turgor normal, no jaundice, no petechiae and no mottling Neuro oriented x3, CN's II-XII intact bilaterally, moves all extremities and no focal motor deficits Neuro Narrative: Significant generalized weakness Speech: speech normal Psych Psych Narrative: Affect is flat and mood seems depressed however eye contact is good and patient is very pleasant Results Lab / Micro Data Attestation: I reviewed the patient's lab results. Result Diagrams: 01/07/23 14:00 01/07/23 14:00 Labs: Laboratory Results - last 24 hr 01/07/23 14:00: WBC 6.5, RBC 3.95 L, Hgb 12.0 L, Hct 36.2 L, MCV 91.6, MCH 30.4, MCHC 33.1, RDW Std Deviation 46.4 H, RDW Coeff of Jagjit 13.8, Plt Count 275, MPV 9.2, Immature Gran % (Auto) 0.600, Neut % (Auto) 49.6, Lymph % (Auto) 30.6, [place] % (Auto) 18.6 H, Eos % (Auto) 0.0, Baso % (Auto) 0.6, Absolute Neuts (auto) 3.2, Absolute Lymphs (auto) 1.99, Nucleated RBC % 0 01/07/23 14:00: Sodium 134 L, Potassium 4.1, Chloride 100, Carbon Dioxide 26.0, Anion Gap 8, BUN 10, Creatinine 0.95, Estim Creat Clear Calc 55.43, Est GFR (MDRD) Af Amer 97, Est GFR (MDRD) Non-Af 80, BUN/Creatinine Ratio 10.5, Glucose 138 H, Calcium 8.9, Magnesium 2.2, Total Bilirubin 0.50, Direct Bilirubin 0.20, AST 24, ALT 20, Alkaline Phosphatase 162 H, Total Protein 6.9, Albumin 2.8 L, Globulin 4.1, Lipase 47 01/07/23 14:03: POC Glucose 134 H 01/07/23 16:40: Urine Color Yellow, Urine Clarity Clear, Urine pH 6.0, Ur Specific [place] 1.010, Urine Protein Negative, Urine Glucose (UA) Normal, Urine Ketones Negative, Urine Occult Blood Negative, Urine Nitrite Negative, Urine Bilirubin Negative, Urine Urobilinogen Normal, Ur Leukocyte Esterase Negative, Urine RBC 0 SEEN, Urine WBC 0 SEEN, Ur Squamous Epith Cells 0 SEEN, Urine Bacteria 0 SEEN, Urine Mucus 0 SEEN Micro: Microbiology 01/07/23 14:25 Nasal Secretion SARS-CoV-2 & FLU Antigen (Rapid) - Final Influenzae B Radiology Impression Chest X-Ray 01/07/23 14:41 IMPRESSION: Horizontal thick linear subsegmental atelectasis in the right in right lung base, new since 11/22/2022. 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 difficile since patient is immunocompromise and at high risk -Start Solu-Medrol 40 twice daily--> transition to oral prednisone at discharge -Continue mesalamine -Continue as needed loperamide Influenza B -May be contributing to generalized weakness -We will check PCR for verification -Start Tamiflu 75 p.o. twice daily Generalized weakness -Consult PT/OT -Case management/social work consultation for assistance with discharge planning Severe malnutrition/poor p.o. intake -Taste buds have been affected by chemotherapy -Dietitian consultation -Dietary supplements with Ensure -Liberalize diet Metastatic prostate cancer -Biopsy on 07/26/2022 showed poorly differentiated carcinoma -Has been on Lupron and was initially following with urology-however now following with Dr. 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 Morgan -Has been on Keytruda but therapy is now on hold History of dilated pancreatic duct -Continue Creon -No plans for any ERCP per GI documentation Hypertension -Patient states that his blood pressures have been lower lately and is antihypertensives have been changed -Continue metoprolol -Continue isosorbide for now GERD -Continue omeprazole Depression -Continue Remeron DVT prophylaxis -Lovenox daily CODE STATUS -DNR CCA with no intubation as per discussion on admission Charges/Coding Visit Charges Inpatient E&M: 46644 Init Hosp L3
[2023-01-07 20:10] VITALS: BMI 21.7
[2023-01-07 20:20] VITALS: BP 138/78; PULSE 78; RESP 18; TEMP 37.7; O2SAT 95
[2023-01-07] MEDS: Acetaminophen 500 MG Tablet 1000 MG PO (20:48)
[2023-01-07] MEDS: Lactated Ringers 1,000 ML 60 ML IV (20:48)
[2023-01-07] MEDS: Methylprednisolone Sod Succ 40 MG/ML VIAL IV (21:31)
[2023-01-07] MEDS: Oseltamivir Phosphate 75 MG Capsule PO (21:31)
[2023-01-07] MEDS: Mirtazapine 15 MG Tablet PO (21:31)
[2023-01-08] VITALS (7 sets, daily range): BP systolic 91–142; BP diastolic 62–84; PULSE 51–73; RESP 16–18; TEMP 36.2–36.6; O2SAT 96–98; BMI 21.7
[2023-01-08 06:08] LABS: Absolute Lymphocyte Count 1.12 X10^3/uL (0.83-4.51); Absolute Neutrophil Count 2.9 X10^3/uL (2.0-7.7); Basophil# 0.03 X10^3/uL; Basophil% 0.7 % (0-1); Hematocrit 36.1 % (40-54); Hemoglobin 11.5 g/dL (13.0-16.5); Lymphocyte # 1.12 X10^3/ul (0.83-4.51); Lymphocyte % 25.1 % (19-41); Mean Corp Hgb Conc 31.9 g/dL (32-36); Mean Corpuscular Hgb 29.3 pg (27.0-32.0); Mean Corpuscular Volume 92.1 fL (80-94); Mean Platelet Vol. 8.7 fl (6.2-12.0); Monocyte# 0.35 X10^3/uL; Monocyte% 7.8 % (0-10); NRBC Flagged by Analyzer 0 % (0-5); Neutrophil # 2.91 X10^3/uL (2.7-7.7); Neutrophil % 65.1 % (47-70); POSITIVE MORPHOLOGY YES; Platelet Count 246 K/mm3 (150-450); RBC Distribution Width CV 13.8 % (11.6-14.6); RBC Distribution Width SD 46.4 fl (35.1-43.9); Red Blood Count 3.92 M/mm3 (4.6-6.2); White Blood Count 4.5 K/mm3 (4.4-11.0)
[2023-01-08 06:09] LABS: Differential Indicated SCAN CRITERIA MET
[2023-01-08 06:55] LABS: ALB/GLOB Ratio 0.6 RATIO (0.9-2.4); AST(SGOT) 19 U/L (15-37); Alanine Aminotransfer ALT/SGPT 16 U/L (16-61); Albumin, Serum 2.4 g/dL (3.2-5.0); Alkaline Phosphatase 133 U/L (45-117); Anion Gap 6 (5-15); BUN 12 mg/dL (7-18); BUN/Creat Ratio 15.7 RATIO (10-20); Calcium,Total 8.4 mg/dL (8.5-10.1); Chloride 104 mmol/L (98-107); Creatinine, Serum 0.77 mg/dL (0.70-1.30); EST Glomerular Filtration Rate 103 mL/min (>60); Est Glom Filt Rate - Afr Amer 124 mL/min (>60); Estimated Creatinine Clearance 50.48 ml/min; Globulin 3.7 g/dL (2.2-4.2); Glucose 150 mg/dL (74-106); Magnesium 2.2 mg/dL (1.6-2.6); Phosphorus 4.6 mg/dL (2.5-4.9); Potassium 4.7 mmol/L (3.5-5.1); Protein, Total 6.1 g/dL (6.4-8.2); Sodium Level 135 mmol/L (136-145); Thyroid Stim Hormone (TSH) 0.83 uIU/mL (0.358-3.74)
[2023-01-08 06:56] LABS: Reactive Lymphocyte 1+
[2023-01-08 06:57] LABS: Differential Comment SCANNED
[2023-01-08] MEDS: Methylprednisolone Sod Succ 40 MG/ML VIAL IV ×2 (09:19→21:19)
[2023-01-08] MEDS: 0.9% Saline Lock 10 ML Syringe IV ×2 (09:20→21:19)
[2023-01-08] MEDS: Isosorbide Mononitrate 30 MG Tablet PO (09:21)
[2023-01-08] MEDS: Mesalamine 1.2 GM Tablet 3.6 GM PO (09:21)
[2023-01-08] MEDS: Enoxaparin 40 MG/0.4 ML Syringe SC (09:21)
[2023-01-08] MEDS: Creon 12,000 unit DR CapSULE 3 CAP PO ×3 (09:21→17:07)
[2023-01-08] MEDS: Pantoprazole Sodium 20 MG Tablet PO (09:22)
[2023-01-08] MEDS: Metoprolol(XL)Succ 25 MG Tablet PO (09:22)
[2023-01-08] MEDS: Aspirin 81 MG TAB.CHEW PO (09:22)
[2023-01-08] MEDS: Oseltamivir Phosphate 75 MG Capsule PO ×2 (09:23→21:19)
[2023-01-08] MEDS: Potassium Chloride Oral Tablet 20 MEQ PO ×3 (09:23→17:07)
[2023-01-08] MEDS: Calcium Carb/Vitamin D 1 TABLET Tablet PO (09:23)
[2023-01-08] MEDS: Creon 24,000 unit DR Capsule 3 CAP PO ×3 (09:24→17:07)
[2023-01-08] MEDS: BICALUTAMIDE 50 MG TABLET PO (09:27)
[2023-01-08] MEDS: Iron Polysaccharide Complex 150 MG CAPSULE PO (10:13)
[2023-01-08] MEDS: Lactated Ringers 1,000 ML 60 ML IV (12:17)
--- NOTE | 2023-01-08 13:00 | CASEMGMT ---
RAMIRO HURTADO Assessment: Face to Face with pt for initial transition planning/care coordination assessment. RAMIRO HURTADO introduced self and role at [facility], pt voices understanding and consents to assessment. Pt is A/O x4 and answers all questions appropriately at this time. Pt sitting up in chair in no distress. Care providers, pharmacy, and demographics verified/updated. Admitting Dx: diarrhea/debility PCP:Marc Specialists:Eddie, onc; Iliana, cardio Preferred Pharmacy: [facility] Retail Insurance: [employer] Prescription Benefit: yes LNOK: Kathia Carrillo, ; Vani Dash, dtr Living Arrangements: Pt lives with in a single story home with a stair lift to enter. Pt dtr comes at night to assist with pt . Pt reports he is I in ADL's. Pt states he was supposed to be strong enough to care for his at night but since November he has not been. He states he feels like he should go to a chcf to relieve the burden of his dtr. Pt very tearful throughout the conversation. Pt is on hospice. They have a privately paid aide that comes during the day to assist . Pt states he does not know how much longer he can afford this. Transportation: Pt drives self and denies concerns with transportation. DME/HHC/SNF: Pt has a [facility] that he has been using since May. Pt has a raised toilet seat. Pt states he just finished [facility] for therapy and he feels this really did help him but that he is not strong enough now to do the exercises he needs to do. Pt denies need to have HHC again. Noted PT did not recommend further therapy, although OT did. Pt denies SNF stays. RAMIRO HURTADO notified SW regarding pt concerns and tearfulness. Pt states no further concerns/needs. CM to follow. Advised pt to ask CM if any further question/concerns/needs arise, voices understanding. Pt Goal: Home Plan: Home, SW to discuss if any respite options for pt or alternative options
--- NOTE | 2023-01-08 14:21 | CHAPLAIN ---
Type of Pastoral Visit _x__ Initial Visit ___ Follow-up Visit ___ On-call Visit ___ General Patient Visit ___ Spiritual Assessment ___ Family Conference ___ Bereavement ___ Rapid Response ___ Code Blue ___ Other (describe below) Pastoral Care Referral From _x__ Patient ___ Family ___ Nurse ___ Physician ___ Mold Maker Helper ___ Central Sterile Tech ___ Other (describe below) Sacrament/Intervention _x__ Active listening ___ Anointing ___ Latter Day ___ Bereavement ___ Communion _x__ Chelsey exploration ___ _x__ Life review _x__ Prayer ___ Reconciliation ___ Sacrament of Sick _x__ Supportive presence ___ Wedding _x__ Other (describe below) Pastoral Comments patient welcomes this heel varnisher into room; upon explanation of role and support to pt, he begins to cry and cannot speak; time given for pt to recover and it is explained that he has time to talk and express his needs and feelings; pt speaks of his in hospice care, that he is unable to help her now, that this is too much for my one daughter as other daughter just had surgery, and this is too much for me because I can't fix it anymore; pt worried about money expenses as well; pt admits that he has removed himself from hinduism over disagreements that he had with them; pt at first cannot think of things that are helpful for coping and handling difficult situations; as conversation continues pt is able to identify good support of a son that comes out of state to relieve his sisters, good and successful grandchildren, and four great grandchildren; pt encouraged to allow family support without guilt, being open to options from SW and CM, and to seek help from God, not necessarily hinduism; pt acknowledges these suggestions; pt welcomed prayer and presence; pt very appreciative of the visit of this heel varnisher;
--- NOTE | 2023-01-08 15:21 | CASEMGMT ---
Social Work Consult: Emotional Support Referral source: RAMIRO HURTADO This social professionals met with patient in room. Introduced self and social professionals role. Patient agreeable to speak with this social professionals. This social professionals broached conversation of patient concerns on returning to home. Patient became tearful. Patient states to feel like a burden to patient daughter. Patient states that patient spouse in on hospice services but still able to walk around with a walker. Patient reports that the plan was for patient to be able to assist patient spouse in the evenings but I am not not able to do that, states the patient. Patient tearful when talking about how patient daughter has been staying with patient and patient spouse during the night to assist. This social professionals inquired if patient daughter has expressed concern for not being able to assist, patient states no. Patient states to be comfortable with returning to home but feels that patient should be helping more. Patient states to be able to assist with driving, laundry, and meals and to be able to do all own care. This social professionals normalizing patient emotions/feelings. This social professionals inquired if patient has had any suicidal thoughts, patient denies suicidal thoughts. Patient states to feel good about returning to home but is working through emotions/feelings of not being able to assist spouse. Patient states to have aides during the day. Patient reports to be on an anti-depressant. Active support and listening provided. PLAN: Return home. Carisa DORADO, ROYER
[2023-01-08] MEDS: Ensure Plus High Protein 120 ML LIQUID PO ×2 (16:58→21:19)
--- NOTE | 2023-01-08 18:23 | PN.HOSP_ITS ---
Reason for Visit Reason for Visit: Diagnoses Unspecified severe protein-calorie malnutrition (01/07/23) Influenza due to other identified influenza virus with other respiratory manifestations (01/07/23) Diarrhea, unspecified (01/07/23) Weakness (01/07/23) Subjective Subjective Patient was seen and examined today, he is still having diarrhea, he states he has had about 3 bowel movements today. I have elected to increase the patient's corticosteroids, patient does not complain of any shortness of breath, he remains on room air. Objective Data Objective Data Vital Signs: Vital Signs Temp Pulse Resp BP Pulse Ox O2 Del Method 97.2 F L 73 18 91/62 97 Room Air 01/08/23 14:22 01/08/23 14:22 01/08/23 14:22 01/08/23 14:22 01/08/23 14:22 01/08/23 14:25 Oxygen Delivery Method Room Air Weight: 64.9 kg Body Mass Index (BMI) 21.7 Intake & Output: Intake and Output for Last 24 Hours 01/06/23 01/07/23 01/08/23 23:59 23:59 23:59 Intake Total 1000 / 1000 1409 / 1409 Balance 1000 / 1000 1409 / 1409 Medical Nutrition Assessment Dietitian: Malnutrition Criteria Met Start: 01/08/23 15:21 Freq: Status: Active Protocol: Document 01/08/23 15:21 RMA (Rec: 01/08/23 15:21 RMA [id number]) Nutrition Malnutrition Evidence of Malnutrition Exists Yes Malnutrition (severe): Chronic Evidenced By Suboptimal Energy Intake ( Severe),Weight Loss (Severe) Clinical Problem Chronic Disease or Condition Related Malnutrition Etiology Severe protein-calorie malnutrition in the context of chronic disease related to inadequate oral intake and increased energy expenditure of metastatic disease Signs/Symptoms as evidenced by ~7% weight loss x past 5-6 weeks, inadequate oral intake meeting less than 50% estimated nutrition needs >1 month, BMI 21.8 and diarrhea/dehydration Status Active Problem Recommendation Dietitian Recommendations/Changes Will continue liberalized regular diet as ordered. Will change ensure compact w/ medpass to 120ml ensure plus high protein 4 times per day. Will add 240ml ensure clear BID w/ breakfast and dinner meals. Adjust ONS as need to optimize oral intake and prevent further weight loss. Lab / Micro Data Result Diagrams: 01/08/23 06:00 01/08/23 06:00 Labs: Laboratory Results - last 24 hr 01/08/23 06:00: WBC 4.5, RBC 3.92 L, Hgb 11.5 L, Hct 36.1 L, MCV 92.1, MCH 29.3, MCHC 31.9 L, RDW Std Deviation 46.4 H, RDW Coeff of Jagjit 13.8, Plt Count 246, MPV 8.7, Immature Gran % (Auto) 1.300 H, Neut % (Auto) 65.1, Lymph % (Auto) 25.1, Irwin % (Auto) 7.8, Eos % (Auto) 0.0, Baso % (Auto) 0.7, Absolute Neuts (auto) 2.9, Absolute Lymphs (auto) 1.12, Nucleated RBC % 0, Differential Comment S CANNED, Reactive Lymphocytes 1+ 01/08/23 06:00: Sodium 135 L, Potassium 4.7, Chloride 104, Carbon Dioxide 25.0, Anion Gap 6, BUN 12, Creatinine 0.77, Estim Creat Clear Calc 50.48, Est GFR (MDRD) Af Amer 124, Est GFR (MDRD) Non-Af 103, BUN/Creatinine Ratio 15.7, Glucose 150 H, Calcium 8.4 L, Phosphorus 4.6, Magnesium 2.2, Total Bilirubin 0.50, AST 19, ALT 16, Alkaline Phosphatase 133 H, Total Protein 6.1 L, Albumin 2.4 L, Globulin 3.7, Albumin/Globulin Ratio 0.6 L, TSH 0.83 Micro: Microbiology 01/07/23 20:45 Mucosa - Nasopharyngeal Respiratory Panel (PCR) - Final 01/07/23 22:50 Stool C. difficile DNA Amplification - Final 01/07/23 14:25 Nasal Secretion SARS-CoV-2 & FLU Antigen (Rapid) - Final Influenzae B Physical Exam Const alert, oriented x3 and no apparent distress General Appearance: cooperative, well kempt and well developed Orientation / Consciousness: awake, oriented to person, oriented to place and oriented to time HEENT normocephalic, head/scalp atraumatic and moist oral mucous membranes Eyes PERRL, EOMs intact bilaterally and conjunctivae normal Neck supple, no JVD, thyroid normal and no carotid bruits General: trachea midline Resp normal respiratory effort, no retractions, no use of accessory muscles and clear to auscultation bilaterally Auscultation: Negative for rales, rhonchi or wheezes Cardio regular rate, regular rhythm, S1 normal heart sound, S2 normal heart sound, no murmurs, no rub and no gallops GI normal to inspection, nondistended, normoactive bowel sounds, soft to palpation, non-tender and non-distended Extremity no clubbing, cyanosis or edema Skin no rashes or lesions noted General Skin Exam: no breakdown Neuro oriented x3, CN's II-XII intact bilaterally, moves all extremities, no focal motor deficits and no sensory deficits noted Sensorium / Orientation: awake, alert, oriented to person, oriented to place and oriented to time Speech: speech normal Psych affect normal Assessment & Plan Assessment/Plan (1) Diarrhea: QUALIFIERS: Diarrhea type: unspecified type Qualified Code(s): R19.7 - Diarrhea, unspecified PLAN: Plan #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
[2023-01-08] MEDS: Mirtazapine 15 MG Tablet PO (21:19)
[2023-01-09 01:44] VITALS: BP 128/84; PULSE 60; RESP 16; TEMP 36.6; O2SAT 100
[2023-01-09] MEDS: Lactated Ringers 1,000 ML 60 ML IV ×3 (04:58→21:22)
[2023-01-09 06:00] VITALS: BMI 21.7
[2023-01-09 08:04] VITALS: O2SAT 95
[2023-01-09 08:38] VITALS: BP 134/85; PULSE 72; RESP 16; TEMP 36.2; O2SAT 98
[2023-01-09] MEDS: Creon 12,000 unit DR CapSULE 3 CAP PO ×3 (08:40→16:41)
[2023-01-09 08:41] VITALS: BP 134/85; PULSE 72
[2023-01-09] MEDS: Potassium Chloride Oral Tablet 20 MEQ PO ×3 (08:41→16:41)
[2023-01-09] MEDS: Metoprolol(XL)Succ 25 MG Tablet PO (08:41)
[2023-01-09] MEDS: Pantoprazole Sodium 20 MG Tablet PO (08:41)
[2023-01-09] MEDS: Creon 24,000 unit DR Capsule 3 CAP PO ×3 (08:41→16:40)
[2023-01-09] MEDS: Oseltamivir Phosphate 75 MG Capsule PO ×2 (08:42→21:22)
[2023-01-09] MEDS: Calcium Carb/Vitamin D 1 TABLET Tablet PO (08:42)
[2023-01-09] MEDS: Mesalamine 1.2 GM Tablet 3.6 GM PO (08:42)
[2023-01-09] MEDS: Isosorbide Mononitrate 30 MG Tablet PO (08:42)
[2023-01-09] MEDS: Enoxaparin 40 MG/0.4 ML Syringe SC (08:42)
[2023-01-09] MEDS: Loperamide 2 MG Capsule 4 MG PO ×3 (08:42→22:14)
[2023-01-09] MEDS: BICALUTAMIDE 50 MG TABLET PO (08:42)
[2023-01-09] MEDS: Aspirin 81 MG TAB.CHEW PO (08:42)
[2023-01-09] MEDS: Methylprednisolone Sod Succ 40 MG/ML VIAL IV ×3 (08:43→21:23)
[2023-01-09] MEDS: Ensure Plus High Protein 120 ML LIQUID PO (08:46)
[2023-01-09] MEDS: Iron Polysaccharide Complex 150 MG CAPSULE PO (11:57)
[2023-01-09 14:33] VITALS: BP 136/89; PULSE 62; RESP 16; TEMP 36.3; O2SAT 97
--- NOTE | 2023-01-09 15:03 | PCM.PN.HOSP ---
Reason for Visit Reason for Visit: Diagnoses Unspecified severe protein-calorie malnutrition (01/07/23) Influenza due to other identified influenza virus with other respiratory manifestations (01/07/23) Diarrhea, unspecified (01/07/23) Weakness (01/07/23) Subjective Subjective Patient was seen and examined today, he states he is still having diarrhea. Objective Data Objective Data Vital Signs: Vital Signs Temp Pulse Resp BP Pulse Ox O2 Del Method 97.3 F L 62 16 136/89 H 97 Room Air 01/09/23 14:33 01/09/23 14:33 01/09/23 14:33 01/09/23 14:33 01/09/23 14:33 01/09/23 14:33 Oxygen Delivery Method Room Air Weight: 65 kg Body Mass Index (BMI) 21.7 Intake & Output: Intake and Output for Last 24 Hours 01/07/23 01/08/23 01/09/23 23:59 23:59 23:59 Intake Total 1000 / 1000 1409 / 1409 1000 / 1000 Balance 1000 / 1000 1409 / 1409 1000 / 1000 Medical Nutrition Assessment Dietitian: Malnutrition Criteria Met Start: 01/08/23 15:21 Freq: Status: Active Protocol: Document 01/08/23 15:21 RMA (Rec: 01/08/23 15:21 RMA [id number]) Nutrition Malnutrition Evidence of Malnutrition Exists Yes Malnutrition (severe): Chronic Evidenced By Suboptimal Energy Intake ( Severe),Weight Loss (Severe) Clinical Problem Chronic Disease or Condition Related Malnutrition Etiology Severe protein-calorie malnutrition in the context of chronic disease related to inadequate oral intake and increased energy expenditure of metastatic disease Signs/Symptoms as evidenced by ~7% weight loss x past 5-6 weeks, inadequate oral intake meeting less than 50% estimated nutrition needs >1 month, BMI 21.8 and diarrhea/dehydration Status Active Problem Recommendation Dietitian Recommendations/Changes Will continue liberalized regular diet as ordered-- yogurt Q meal. Will d/c ensure compact w/ medpass to 120ml ensure plus high protein 4 times per day and offer with meals instead. Will add 240ml ensure clear BID w/ breakfast. Will offer ensure pudding and magic cup w/ lunch. Will add 240ml ensure plus high protein w/ dinner. Adjust ONS as need to optimize oral intake and prevent further weight loss. Lab / Micro Data 01/08/23 06:00 01/08/23 06:00 Micro: Microbiology 01/07/23 20:45 Mucosa - Nasopharyngeal Respiratory Panel (PCR) - Final 01/07/23 22:50 Stool C. difficile DNA Amplification - Final 01/07/23 14:25 Nasal Secretion SARS-CoV-2 & FLU Antigen (Rapid) - Final Influenzae B Physical Exam Const alert, oriented x3, no apparent distress and average body habitus General Appearance: cooperative, well kempt and well developed Orientation / Consciousness: awake, oriented to person, oriented to place and oriented to time HEENT normocephalic, head/scalp atraumatic and moist oral mucous membranes Eyes PERRL, EOMs intact bilaterally and conjunctivae normal Neck supple, no JVD, thyroid normal and no carotid bruits General: trachea midline Resp normal respiratory effort, no retractions, no use of accessory muscles and clear to auscultation bilaterally Auscultation: Negative for rales, rhonchi or wheezes Cardio regular rate, regular rhythm, S1 normal heart sound, S2 normal heart sound, no murmurs, no rub and no gallops GI normal to inspection, nondistended, normoactive bowel sounds, soft to palpation, non-tender and non-distended Extremity no clubbing, cyanosis or edema Skin no rashes or lesions noted General Skin Exam: no breakdown Neuro oriented x3, CN's II-XII intact bilaterally, moves all extremities, no focal motor deficits and no sensory deficits noted Sensorium / Orientation: awake and alert Speech: speech normal Psych affect normal Assessment & Plan Assessment/Plan (1) Diarrhea: QUALIFIERS: Diarrhea type: unspecified type Qualified Code(s): R19.7 - Diarrhea, unspecified PLAN: Plan #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
[2023-01-09 20:30] VITALS: BP 121/79; PULSE 53; RESP 16; TEMP 36.4; O2SAT 97
[2023-01-09] MEDS: Mirtazapine 15 MG Tablet PO (21:22)
[2023-01-10 02:20] VITALS: BP 164/92; PULSE 61; RESP 16; TEMP 36.3; O2SAT 98
[2023-01-10] MEDS: Loperamide 2 MG Capsule 4 MG PO ×2 (04:06→09:32)
[2023-01-10] MEDS: Dicyclomine 10 MG Capsule PO ×2 (06:19→12:01)
[2023-01-10] MEDS: Methylprednisolone Sod Succ 40 MG/ML VIAL IV (06:20)
[2023-01-10 07:58] VITALS: O2SAT 96
[2023-01-10 09:26] VITALS: BP 135/81; PULSE 65; RESP 18; TEMP 36.2; O2SAT 98
[2023-01-10] MEDS: Iron Polysaccharide Complex 150 MG CAPSULE PO (09:32)
[2023-01-10] MEDS: Mesalamine 1.2 GM Tablet 3.6 GM PO (09:32)
[2023-01-10] MEDS: Creon 24,000 unit DR Capsule 3 CAP PO ×2 (09:33→12:01)
[2023-01-10] MEDS: Enoxaparin 40 MG/0.4 ML Syringe SC (09:33)
[2023-01-10] MEDS: Creon 12,000 unit DR CapSULE 3 CAP PO ×2 (09:33→12:01)
[2023-01-10 09:34] VITALS: PULSE 65
[2023-01-10] MEDS: Metoprolol(XL)Succ 25 MG Tablet PO (09:34)
[2023-01-10] MEDS: Isosorbide Mononitrate 30 MG Tablet PO (09:34)
[2023-01-10] MEDS: Oseltamivir Phosphate 75 MG Capsule PO (09:34)
[2023-01-10] MEDS: Calcium Carb/Vitamin D 1 TABLET Tablet PO (09:34)
[2023-01-10] MEDS: BICALUTAMIDE 50 MG TABLET PO (09:34)
[2023-01-10] MEDS: Potassium Chloride Oral Tablet 20 MEQ PO ×2 (09:35→12:01)
[2023-01-10] MEDS: Pantoprazole Sodium 20 MG Tablet PO (09:35)
[2023-01-10] MEDS: Aspirin 81 MG TAB.CHEW PO (09:35)
--- NOTE | 2023-01-10 11:46 | DCINST_ITS ---
Discharge Instructions Diet Discharge Diet: No restrictions Activity Discharge Activity: Return to Normal Activity Weight Bearing Status: Full weight bearing Follow Up Care Test Results: Test results from this visit will be discussed in further detail at your follow- up appointment, if applicable. Discharge Plan Admission Admit Date/Time: 01/07/23 18:11 Primary Reason for Your Visit: diarrhea Attending Provider: Roland Dodd Primary Care Provider: Levar Tran Consulting Providers: Margo Ryan Instructions Additional Instructions / Restrictions: follow up with Dr. Morgan as scheduled Discharge Orders/Prescriptions Prescriptions: New oseltamivir 75 mg Capsule 75 mg PO BID Qty: 7 0RF Rx Instructions: start this evening dicyclomine 10 mg Capsule 10 mg PO TIDAC Qty: 30 0RF Continued carboxymethylcellulose-glycern 0.5-0.9 % drops 1 drp ophthalmic (eye) PRN PRN (Reason: Dry Eye(S)) Patient Comments: 1 drop into both eyes as directed isosorbide mononitrate 30 mg tablet extended release 24 hr 30 mg PO DAILY Qty: 30 11RF polysaccharide iron complex [Ferrex 150] 150 mg iron capsule 150 mg PO DAILY 90 Days Qty: 90 3RF mesalamine 1.2 gram tablet,delayed release (DR/EC) 3.6 g PO DAILY Qty: 270 1RF Creon 36,000-114,000- 180,000 unit capsule,delayed release(DR/EC) See Rx Instructions PO .COMPLEX Qty: 540 1RF Rx Instructions: take 1-2 with snacks and 2-3 with meals Voucher metoprolol succinate 25 mg tablet extended release 24 hr 25 mg PO DAILY prednisone 20 mg tablet 20 mg PO BID Qty: 60 0RF ibuprofen 600 mg Tablet 600 mg PO Q6H PRN (Reason: Pain) aspirin 81 mg Tablet,Chewable 81 mg PO DAILY bicalutamide 50 mg tablet 50 mg PO DAILY Patient Comments: TAKE 1 TABLET BY MOUTHCONCE DAILY potassium chloride 20 mEq tablet,ER particles/crystals 20 meq PO TID loperamide [Imodium A-D] 2 mg Capsule 4 mg PO Q6H PRN (Reason: Diarrhea) Qty: 1 0RF mirtazapine 15 mg tablet 15 mg PO QHS Patient Comments: Take 1 tablet by mouthEdaily at bedtime. omeprazole 20 mg capsule,delayed release(DR/EC) 20 mg PO DAILY Qty: 30 2RF Referrals / Follow Up: Levar Tran MD [Primary Care Provider] - Within 2 Weeks Disposition Disposition (needs filled in before D/C Order can be placed): Home, Self Care
--- NOTE | 2023-01-10 11:54 | DS.PCM_ITS ---
Providers Date of Admission: 01/07/23 Date of Discharge: 01/10/23 Primary Care Physician: Dr. 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-complicates care, medical course, recovery, and prognosis #6 metastatic prostate cancer-complicates care, medical course, recovery, and prognosis #7 essential hypertension-patient will remain on his present medication Total clinical time spent by myself addressing patient's medical issues, reviewing all of his data, and collaborating with patient's care team: 35 minutes Medications at Discharge Home Medications carboxymethylcellulose 0.5 %-glycerin 0.9 % eye drops 1 drp ophthalmic (eye) PRN PRN Dry Eye(S) 09/26/21 isosorbide mononitrate 30 mg tablet,extended release 24 hr 30 mg PO DAILY #30 tabs 06/18/22 ibuprofen 600 mg tablet 600 mg PO Q6H PRN Pain 06/29/22 aspirin 81 mg chewable tablet 81 mg PO DAILY 07/04/22 polysaccharide iron complex 150 mg iron capsule (Ferrex) 150 mg PO DAILY 90 days #90 caps 07/27/22 bicalutamide 50 mg tablet 50 mg PO DAILY 10/03/22 mesalamine 1.2 gram tablet,delayed release 3.6 g (3 x 1.2 gram) PO DAILY #270 tabs 11/05/22 omeprazole 20 mg capsule,delayed release 20 mg PO DAILY #30 caps 11/22/22 potassium chloride 20 mEq tablet,extended release(part/cryst) 20 meq PO TID 11/22/22 loperamide 2 mg capsule (Imodium A-D) 4 mg (2 x 2 mg) PO Q6H PRN Diarrhea #1 cap 11/25/22 rmeaky-ywcxjojx-vqrgnbg 36,000-114,000-180,000 unit capsule,delay rel (Creon) See Rx Instructions PO .COMPLEX #540 caps 12/25/22 metoprolol succinate 25 mg tablet,extended release 24 hr 25 mg PO DAILY 01/03/23 prednisone 20 mg tablet 20 mg PO BID #60 tabs 01/03/23 mirtazapine 15 mg tablet 15 mg PO QHS . 01/07/23 dicyclomine 10 mg capsule 10 mg PO TIDAC #30 caps 01/10/23 oseltamivir 75 mg capsule 75 mg PO BID #7 caps 01/10/23 Hospital Course Operations None Procedures None Summary of Care Provided Minutes Spent on Discharge: 31 Hospital Course: This 82-year-old white male was seen in the emergency room at [facility] with complaints of poor p.o. intake, diarrhea, generalized weakness. Patient has a history of metastatic prostate cancer as well as bladder cancer and is currently undergoing immuno therapy with Keytruda. Patient was hospitalized in November of this year with diarrhea from the Keytruda, he was placed on steroids and his prednisone was stopped in early December of this year. Patient stated his diarrhea started up shortly thereafter. Work-up in the emergency room showed a normal CBC, chemistry panel showed mild hyponatremia with a sodium of 134 but was otherwise unremarkable. Rapid flu test was done and was positive for influenza B. Patient was admitted to [facility], he was placed on IV fluids and IV corticosteroids, he was also placed on Tamiflu. Patient continued to have diarrhea for the next 2 days in the hospital, he was seen by PT and OT. On 01/10/2023, patient's diarrhea resolved, he was seen and examined on that day: On examination he appeared in good health and spirits. Vital signs as documented. Skin warm and dry and without overt rashes. Neck without JVD, neck was supple, trachea midline, thyroid was normal. Lungs clear bilaterally, normal air movement was noted. Heart exam notable for regular rhythm, normal sounds and absence of murmurs, rubs or gallops. Abdomen unremarkable and without evidence of organomegaly, masses, or abdominal aortic enlargement. Bowel sounds are present, abdomen is not distended. Extremities nonedematous, no cyanosis was noted, no clubbing was noted. Neuro: Cranial nerves II through XII are grossly intact, no focal motor deficits were noted, sensation to light touch and pinprick intact, motor exam 5/5 throughout. Psych: Patient is alert and oriented x3, he does not appear anxious or depressed, he does not appear agitated. Patient appears stable for discharge home on 01/10/2023. Medical Records Data Medical Nutrition Assessment Dietitian: Malnutrition Criteria Met Start: 01/08/23 15:21 Freq: Status: Active Protocol: Document 01/08/23 15:21 RMA (Rec: 01/08/23 15:21 RMA [id number]) Nutrition Malnutrition Evidence of Malnutrition Exists Yes Malnutrition (severe): Chronic Evidenced By Suboptimal Energy Intake ( Severe),Weight Loss (Severe) Clinical Problem Chronic Disease or Condition Related Malnutrition Etiology Severe protein-calorie malnutrition in the context of chronic disease related to inadequate oral intake and increased energy expenditure of metastatic disease Signs/Symptoms as evidenced by ~7% weight loss x past 5-6 weeks, inadequate oral intake meeting less than 50% estimated nutrition needs >1 month, BMI 21.8 and diarrhea/dehydration Status Active Problem Recommendation Dietitian Recommendations/Changes Will continue liberalized regular diet as ordered-- yogurt Q meal. Will d/c ensure compact w/ medpass to 120ml ensure plus high protein 4 times per day and offer with meals instead. Will add 240ml ensure clear BID w/ breakfast. Will offer ensure pudding and magic cup w/ lunch. Will add 240ml ensure plus high protein w/ dinner. Adjust ONS as need to optimize oral intake and prevent further weight loss. Weight / BMI Weight Weight: 65 kg Body Mass Index (BMI) 21.7 ABG / Lab / Microbiology Data 01/08/23 06:00 01/08/23 06:00 Microbiology: Microbiology 01/07/23 20:45 Mucosa - Nasopharyngeal Respiratory Panel (PCR) - Final 01/07/23 22:50 Stool C. difficile DNA Amplification - Final 01/07/23 14:25 Nasal Secretion SARS-CoV-2 & FLU Antigen (Rapid) - Final Influenzae B D/C Instructions Discharge Diet: No restrictions Weight Bearing Status: Full weight bearing Meaningful Use Info Meaningful Use Diagnoses (Choose all that apply): None applicable Discharge Plan Admission Admit Date/Time: 01/07/23 18:11 Primary Reason for Your Visit: diarrhea Attending Provider: Roland Dodd Primary Care Provider: Levar Tran Consulting Providers: Margo Ryan Instructions Additional Instructions / Restrictions: follow up with Dr. Morgan as scheduled Discharge Orders/Prescriptions Prescriptions: New oseltamivir 75 mg Capsule 75 mg PO BID Qty: 7 0RF Rx Instructions: start this evening dicyclomine 10 mg Capsule 10 mg PO TIDAC Qty: 30 0RF Continued carboxymethylcellulose-glycern 0.5-0.9 % drops 1 drp ophthalmic (eye) PRN PRN (Reason: Dry Eye(S)) Patient Comments: 1 drop into both eyes as directed isosorbide mononitrate 30 mg tablet extended release 24 hr 30 mg PO DAILY Qty: 30 11RF polysaccharide iron complex [Ferrex 150] 150 mg iron capsule 150 mg PO DAILY 90 Days Qty: 90 3RF mesalamine 1.2 gram tablet,delayed release (DR/EC) 3.6 g PO DAILY Qty: 270 1RF Creon 36,000-114,000- 180,000 unit capsule,delayed release(DR/EC) See Rx Instructions PO .COMPLEX Qty: 540 1RF Rx Instructions: take 1-2 with snacks and 2-3 with meals Voucher metoprolol succinate 25 mg tablet extended release 24 hr 25 mg PO DAILY prednisone 20 mg tablet 20 mg PO BID Qty: 60 0RF ibuprofen 600 mg Tablet 600 mg PO Q6H PRN (Reason: Pain) aspirin 81 mg Tablet,Chewable 81 mg PO DAILY bicalutamide 50 mg tablet 50 mg PO DAILY Patient Comments: TAKE 1 TABLET BY MOUTHCONCE DAILY potassium chloride 20 mEq tablet,ER particles/crystals 20 meq PO TID loperamide [Imodium A-D] 2 mg Capsule 4 mg PO Q6H PRN (Reason: Diarrhea) Qty: 1 0RF mirtazapine 15 mg tablet 15 mg PO QHS Patient Comments: Take 1 tablet by mouthEdaily at bedtime. omeprazole 20 mg capsule,delayed release(DR/EC) 20 mg PO DAILY Qty: 30 2RF Referrals / Follow Up: Levar Tran MD [Primary Care Provider] - Within 2 Weeks Disposition Disposition (needs filled in before D/C Order can be placed): Home, Self Care Charges/Coding Visit Charges Inpatient E&M: 04242 Disch Hosp >30min
--- NOTE | 2023-01-10 12:18 | CASEMGMT ---
Social Work SW met with pt to discuss advance directives. Pt confirms he has a living will and a health care POA naming his Kathia Carrillo. Pt made aware documents are not on file at [facility] and requested they be brought in for scanning into EMR. CORINA Sood
[2023-01-10 13:29] VITALS: BP 101/66; PULSE 65; RESP 18; TEMP 36.2; O2SAT 96
== END 2023-01-10 14:17 | disposition home or self-care (01) | DRG 393 ==
LOC: ED 14:36 → MS3 19:09
PROVIDERS: Admitting Provider Internal Medicine; Emergency Provider Student in an Organized Health Care Education/Training Program; PCP Internal Medicine; Visit Provider Internal Medicine
DX: K52.1 Toxic gastroenteritis and colitis (principal); E43 Unspecified severe protein-calorie malnutrition; C79.51 Secondary malignant neoplasm of bone; E87.1 Hypo-osmolality and hyponatremia; C67.5 Malignant neoplasm of bladder neck; C61 Malignant neoplasm of prostate; J10.1 Influenza due to other identified influenza virus with other respiratory manifestations; I10 Essential (primary) hypertension; I25.10 Atherosclerotic heart disease of native coronary artery without angina pectoris; R19.7 Diarrhea, unspecified; K21.9 Gastro-esophageal reflux disease without esophagitis; F32.A Depression, unspecified; R53.1 Weakness; Z92.21 Personal history of antineoplastic chemotherapy; Z87.891 Personal history of nicotine dependence; Z66 Do not resuscitate; T45.1X5A Adverse effect of antineoplastic and immunosuppressive drugs, initial encounter; Z68.21 Body mass index [BMI] 21.0-21.9, adult
CPT/HCPCS: 36415; 71045; 80048; 80053; 80076; 81001; 82962; 83630; 83690; 83735; 83993; 84100; 84443; 85025; 87428; 87493; 87633; 94668; 97110; 97162; 97166; 97535; 97802; 97803; 99285; J7120; A4216

== ENCOUNTER 2023-01-11 22:12 | Inpatient (IN) | payer MEDICARE, OTHER, SELFPAY ==
[2023-01-11 22:14] VITALS: BP 120/72; PULSE 64; RESP 18; TEMP 36.6; O2SAT 97; BMI 21.7
[2023-01-11] MEDS: 0.9% Normal Saline 1,000 ML 2000 ML IV (22:41)
[2023-01-11] MEDS: Hydrocortisone Sod Succinate 100 MG/2 ML Vial IV (22:43)
[2023-01-11 23:08] LABS: Absolute Lymphocyte Count 1.53 X10^3/uL (0.83-4.51); Absolute Neutrophil Count 6.1 X10^3/uL (2.0-7.7); Basophil# 0.02 X10^3/uL; Basophil% 0.2 % (0-1); Hemoglobin 11.8 g/dL (13.0-16.5); Lymphocyte # 1.53 X10^3/ul (0.83-4.51); Lymphocyte % 17.7 % (19-41); Mean Corp Hgb Conc 33.7 g/dL (32-36); Mean Corpuscular Hgb 30.9 pg (27.0-32.0); Mean Corpuscular Volume 91.6 fL (80-94); Mean Platelet Vol. 8.9 fl (6.2-12.0); Monocyte# 0.87 X10^3/uL; Monocyte% 10.1 % (0-10); NRBC Flagged by Analyzer 0.2 % (0-5); Neutrophil # 6.08 X10^3/uL (2.7-7.7); Neutrophil % 70.4 % (47-70); Platelet Count 262 K/mm3 (150-450); RBC Distribution Width CV 13.8 % (11.6-14.6); RBC Distribution Width SD 46.1 fl (35.1-43.9); Red Blood Count 3.82 M/mm3 (4.6-6.2); White Blood Count 8.6 K/mm3 (4.4-11.0)
[2023-01-11 23:11] LABS: POSITIVE COUNT NO; POSITIVE DIFFERENTIAL NO; POSITIVE MORPHOLOGY NO
[2023-01-11 23:12] LABS: Anion Gap 4 (5-15); BUN 20 mg/dL (7-18); BUN/Creat Ratio 19.8 RATIO (10-20); Calcium,Total 8.6 mg/dL (8.5-10.1); Chloride 96 mmol/L (98-107); Creatinine, Serum 1.01 mg/dL (0.70-1.30); EST Glomerular Filtration Rate 75 mL/min (>60); Est Glom Filt Rate - Afr Amer 90 mL/min (>60); Estimated Creatinine Clearance 49.82 ml/min; Glucose 133 mg/dL (74-106); Magnesium 2.4 mg/dL (1.6-2.6); Potassium 4.6 mmol/L (3.5-5.1); Sodium Level 128 mmol/L (136-145)
--- NOTE | 2023-01-11 23:51 | HP.PCM.HOS_ITS ---
HPI - General General Date of Admission: 01/11/23 Date of Service: 01/11/23 Chief Complaint: Recurrent diarrhea, fatigue and malaise. 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 Patient denies any significant abdominal pain or distention associated. From discussion with daughter present he has been following with nutrition with attem pted intake but does have poor appetite and occasional nausea. Work-up in the ED included T97.8, heart rate 64, BP 120/72, respiratory rate 18, 97% on room air, continue with WBC 8.6, hemoglobin 11.8, MCV 91.6, platelet 262 with increased immature granulocytes, BMP with sodium 128, chloride 96, BUN/Hurtado 20/1.01, glucose 133, magnesium 2.6. In the ED patient administered 2L NC, Hydrocortisone 100 mg IV x 1. [facility] Medical History Ambulates with cane Anemia Anorexia Anxiety Bladder disease Cardiology follow-up encounter Colitis Debility Depression Diarrhea Dilated pancreatic duct Dizziness Encounter for education Fatigue Former smoker History of echocardiogram History of edema History of pain when walking History of stress test Hypertension Hypokalemia Influenza B Left leg swelling Loss of hearing Lymphedema Nonobstructive atherosclerosis of coronary artery Oral candidiasis Prostate disease Severe malnutrition Shortness of breath on exertion Sleep apnea Trigeminal nerve disease Vomiting Wears glasses Home Medications carboxymethylcellulose 0.5 %-glycerin 0.9 % eye drops 1 drp ophthalmic (eye) PRN PRN Dry Eye(S) 09/26/21 [History Last Taken 01/06/23] isosorbide mononitrate 30 mg tablet,extended release 24 hr 30 mg PO DAILY #30 tabs 06/18/22 [Rx Last Taken 01/06/23] ibuprofen 600 mg tablet 600 mg PO Q6H PRN Pain 06/29/22 [History Last Taken Unknown] aspirin 81 mg chewable tablet 81 mg PO DAILY 07/04/22 [History Last Taken 01/06/23] polysaccharide iron complex 150 mg iron capsule (Ferrex) 150 mg PO DAILY 90 days #90 caps 07/27/22 [Rx Last Taken 01/06/23] bicalutamide 50 mg tablet 50 mg PO DAILY 10/03/22 [History Last Taken 01/06/23] mesalamine 1.2 gram tablet,delayed release 3.6 g (3 x 1.2 gram) PO DAILY #270 tabs 11/05/22 [Rx Last Taken 01/06/23] omeprazole 20 mg capsule,delayed release 20 mg PO DAILY #30 caps 11/22/22 [Rx Last Taken 01/06/23] potassium chloride 20 mEq tablet,extended release(part/cryst) 20 meq PO TID 11/22/22 [History Last Taken 01/06/23] loperamide 2 mg capsule (Imodium A-D) 4 mg (2 x 2 mg) PO Q6H PRN Diarrhea #1 cap 11/25/22 [Rx Last Taken Unknown] neiiwz-zwawnxer-waazpee 36,000-114,000-180,000 unit capsule,delay rel (Creon) See Rx Instructions PO .COMPLEX #540 caps 12/25/22 [Rx Last Taken 01/06/23] metoprolol succinate 25 mg tablet,extended release 24 hr 25 mg PO DAILY 01/03/23 [History Last Taken 01/06/23] prednisone 20 mg tablet 20 mg PO BID #60 tabs 01/03/23 [Rx Last Taken 01/06/23] mirtazapine 15 mg tablet 15 mg PO QHS . 01/07/23 [History Last Taken 01/06/23] dicyclomine 10 mg capsule 10 mg PO TIDAC #30 caps 01/10/23 [Rx Last Taken Unknown] oseltamivir 75 mg capsule 75 mg PO BID #7 caps 01/10/23 [Rx Last Taken Unknown] Allergy/AdvReac Type Severity Reaction Status Date / Time No Known Allergies Allergy Verified 01/07/23 13:58 Family History (Updated 01/12/23 @ 00:[address] Tatum Burns MD) Sister Heart disease Mother No problems noted. Father Cancer Surgical History History of left heart catheterization (10/03/21) Hx of colonoscopy Hx of left cataract extraction Hx of right cataract extraction Hx of transurethral resection of prostate Social History (Updated 01/11/23 @ 23:[address] Tatum Burns MD) household members: spouse and family Smoking Status: Former smoker quit date: 07/15/82 pack-years: 25 alcohol intake: current alcohol intake frequency: holidays/special occasions only Alcohol type: beer substance use type: does not use caffeine: Yes Type: coffee Number of servings: 2 ROS ROS Narrative Admission Review of Systems: CONSTITUTIONAL: No weight loss, fever, chills, + weakness or fatigue. HEENT: Eyes: No visual loss, blurred vision, double vision or yellow sclerae. Ears, Nose, Throat: No hearing loss, sneezing, congestion, runny nose or sore throat. SKIN: No rash or itching, lesions, wounds. CARDIOVASCULAR: + Chronic LLE lymphedema. No chest pain, chest pressure or chest discomfort, palpitations, orthopnea, syncopal events. RESPIRATORY: No shortness of breath, cough or sputum, wheezing, hemoptysis. GASTROINTESTINAL: + anorexia, diarrhea, nausea, No vomiting, abdominal pain, melena, BRBPR. GENITOURINARY: No dysuria, frequency, urgency or retention. NEUROLOGICAL: + headache, dizziness, No syncope, paralysis, ataxia, numbness or tingling in the extremities, focal weakness, change in bowel or bladder control, seizure. MUSCULOSKELETAL: + muscle, back pain, joint pain or stiffness. HEMATOLOGIC: + anemia, bleeding or bruising. LYMPHATICS: No enlarged nodes. No history of splenectomy. PSYCHIATRIC: + history of depression or anxiety. ENDOCRINOLOGIC: No reports of sweating, cold or heat intolerance. No polyuria or polydipsia. ALLERGIES: No history of asthma, hives, eczema or rhinitis. Vital Signs Vital Signs Vital Signs: 01/11/23 22:14 Temperature 97.8 F Temperature Source Oral Pulse Rate 64 Respiratory Rate 18 Blood Pressure 120/72 Blood Pressure Mean 88 Pulse Ox 97 Oxygen Delivery Method Room Air Weight Weight: 142 lb 10.225 oz Body Mass Index (BMI) 21.7 Physical Exam Narrative Physical Examination: General: Awake, alert, oriented x 3 and cooperative, laying in the ED bed, fatigued, extremely flat affect. Skin: Normal color, normal turgor, no icterus, no cyanosis except occasional staged ecchymoses. HEENT: AT/NC, EOMI, PERRLA, dry MM, no carotid bruits or JVD noted. Lungs: Diminished, greater bases, proper effort, no rales, ronchi or wheezing. Heart: Currently regular rate and rhythm; no gallop, rub audible. Abdomen: Soft, NTTP, no marked distention, hyperactive BS, no obvious HSM. Extremities: No cyanosis, no clubbing, chronic left lower extremity lymphedema unchanged. Neurological: Patient awake, alert, oriented as noted, cognitive function intact; pupils equally reactive to light and accommodation, cranial nerves II- XII grossly normal, moving all 4 extremities, no focal deficits, strength severely globally decreased secondary to acute presentation and underlying comor bidities. Psychiatric: Affect appears flat, fatigued, no acute evidence of depressive or anxiety feelings but does have underlying history. Results Lab / Micro Data 01/11/23 22:46 01/11/23 22:46 Labs: Laboratory Results - last 24 hr 01/11/23 22:46: WBC 8.6, RBC 3.82 L, Hgb 11.8 L, Hct 35.0 L, MCV 91.6, MCH 30.9, MCHC 33.7 D, RDW Std Deviation 46.1 H, RDW Coeff of Jagjit 13.8, Plt Count 262, MPV 8.9, Immature Gran % (Auto) 1.600 H, Neut % (Auto) 70.4 H, Lymph % (Auto) 17.7 L, [place] % (Auto) 10.1 H, Eos % (Auto) 0.0, Baso % (Auto) 0.2, Absolute Neuts (auto) 6.1, Absolute Lymphs (auto) 1.53, Nucleated RBC % 0.2, Sodium 128 L , Potassium 4.6, Chloride 96 L, Carbon Dioxide 28.0, Anion Gap 4 L, BUN 20 H, Creatinine 1.01, Estim Creat Clear Calc 49.82, Est GFR (MDRD) Af Amer 90, Est GFR (MDRD) Non-Af 75, BUN/Creatinine Ratio 19.8, Glucose 133 H, Calcium 8.6, Magnesium 2.4 Assessment & Plan Assessment/Plan (1) Intractable diarrhea: PLAN: Plan The patient is an 82 y/o M w/ PMHx: Chronic LLE mild Lymphedema, Former tobacco use, Anxiety and Depression, Chronic anemia/Fe deficiency anemia, HTN, Severe Protein-Calorie Malnutrition, Metastatic prostate cancer as well as 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 #1. 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 Morgan consultation, will maintain initially on solumedrol 30 mg IV BID (~ 1 mg/kg divided), request nutrition consultation given persistent GI losses and decreased intake, maintain on fall precautions, recent 01/07/23 c-difficile negative, 12/04/22 O+P, Enteric, C difficile negative but given timeline will request repeat enteric and O+P, PRN loperamide, will request PT/OT and CM consultation for discharge planning. #2. Acute on chronic hyponatremia, suspect hypovolemic secondary to GI losses: Admission sodium 128, prior baseline since most recent admission 1 34-1 35, current presentation with sodium decreased likely secondary to ongoing GI losses, will continue judicious hydration, loperamide, acute treatment as noted above #1 with repeat CMP trending. #3. Recent History of Influenza B, RULED OUT: Influenza B was from a rapid antigen, follow-up 01/07/23 full respiratory viral panel negative, thus initial lab demostrated a false positive but at that time patient treated with course of tamiflu. #4. Metastatic Prostate Cancer: Initial prostate Bx 07/26/22 w/ poorly differentiated carcinoma, lupron 08/09/22, bone scan 11/29/22 w/ new areas of osteoblastic activity suggestive of progressive disease, PSA rising, noted from most recent Oncology note 01/03/23 planned 02/12/23 ramila, encourage continued outpatient Oncology follow-up. #5. 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, 06/2022 CT LLE w/ extensive moth-eaten appearance of the tibia with cortical destruction, 07/20/22 CT C/A/P w/ 6.3 mm nodule in the peripheral lateral aspect of the right lower lobe and focal soft tissue density in destruction of the posterior lateral aspect of the right lower rib most likely the ninth or 10th rib, 07/23/22 Bone scan w/ increase in radiopharmaceutical concentration defined in the appendicular and axial skeletal structures consistent with osteoblastic turnover attributed to osseous metastatic disease, with increased activity specifically in the proximal to distal tibia diffusely, the right ninth posterior rib, the left acetabulum and left pubic symphysis, the right distal femoral diaphysis, left iliac wing, left femoral diaphysis, proximal right tibial diaphysis, and distal right tibial metaphysis, PET scan 07/25/22 w/ increased radiopharmaceutical concentration no jennifer in the right lower lateral chest wall rib, the left inferior pubic ramus, in the right mid femoral diaphysis, the left proximal and distal tibial metaphysis which often fill quantitative criteria for viable neoplasm. PSA was 95 on 07/19/2022. Had prostate biopsy 07/26/22 path showed on a minute focus of poorly differentiated carcinoma involving the left prostate apex, mid and base, 08/09/2022 initiated C1 Keytruda and Lupron until diarrhea started with cessation of regimen and steroid started. #6. Chronic anemia/Fe deficiency anemia: Admission Hgb 11.8, baseline hemoglobin 11-12, most recent prior 01/08/2023 hemoglobin 11.5, continue iron supplementation, continue CBC trending. #7. Hypertension: Continue home regimen including isosorbide, metoprolol with hold parameters as needed, PRN hydralazine. #8. Severe Protein-Calorie Malnutrition: Patient with ongoing persistent diarrhea, poor oral intake, will request nutrition consultation. #9. Anxiety and depression: We will continue patient home diazepam and mirtazapine home regimen. #10. Former tobacco use: Encourage continued tobacco cessation. #11. GERD: We will continue patient on PPI. #12. SELENE: CPAP q HS if amenable. #13. DVT prophylaxis: Lovenox. #14. CODE status: Patient CHAN is his and children and living will is no currently in place. Discussed CODE status at length including difference between FULL code, DNR-CCA and DNR-CC status. Following discussions about the differences in these status, requested DNR-CCA, no intubation. Advanced Care Planning Face to Face Time: 16 minutes. Admission Evaluation Time spent evaluating chart, patient history, patient evaluation, care planning and discussion with specialists: 75 minutes. Charges/Coding Visit Charges Inpatient E&M: 83115 Init Hosp L3 Procedures Hospitalists Procedures: 18616 Advncd Care Plan 30 Min
--- NOTE | 2023-01-11 23:56 | EDS_ITS ---
HPI History of Present Illness Chief Complaint: Diarrhea Informant: patient and family Narrative Narrative: Patient is an 82-year-old male with past medical history of metastatic prostate and bladder cancer. He was taking Keytruda for immunotherapy but developed bouts of recurrent diarrhea and therefore this was stopped. He was recently seen in the ER and admitted for poor oral intake with dehydration and recurrent diarrhea secondary to colitis and influenza. He was started on Tamiflu and kept in the hospital for a few days and discharged yesterday. Patient states that he is unable to eat or drink because as soon as he does it runs through him. Daughter states she still extremely weak and does not believe he is safe for home. Daughter states she talk to his oncologist who feels patient will need IV fluids and IV steroid and recommends returning to the ER for repeat evaluation and possible admission and therefore they present at this time. [facility] Medical History Ambulates with cane Anemia Anorexia Anxiety Bladder disease Cardiology follow-up encounter Colitis Debility Depression Diarrhea Dilated pancreatic duct Dizziness Encounter for education Fatigue Former smoker History of echocardiogram History of edema History of pain when walking History of stress test Hypertension Hypokalemia Influenza B Left leg swelling Loss of hearing Lymphedema Nonobstructive atherosclerosis of coronary artery Oral candidiasis Prostate disease Severe malnutrition Shortness of breath on exertion Sleep apnea Trigeminal nerve disease Vomiting Wears glasses Home Medications carboxymethylcellulose 0.5 %-glycerin 0.9 % eye drops 1 drp ophthalmic (eye) PRN PRN Dry Eye(S) 09/26/21 [History Last Taken 01/06/23] isosorbide mononitrate 30 mg tablet,extended release 24 hr 30 mg PO DAILY heart #30 tabs 06/18/22 [Rx Last Taken 01/06/23] ibuprofen 600 mg tablet 600 mg PO Q6H PRN Pain 06/29/22 [History Last Taken Unknown] aspirin 81 mg chewable tablet 81 mg PO DAILY heart health 07/04/22 [History Last Taken 01/06/23] polysaccharide iron complex 150 mg iron capsule (Ferrex) 150 mg PO DAILY supplement 90 days #90 caps 07/27/22 [Rx Last Taken 01/06/23] bicalutamide 50 mg tablet 50 mg PO DAILY Hormone therapy 10/03/22 [History Last Taken 01/06/23] mesalamine 1.2 gram tablet,delayed release 3.6 g (3 x 1.2 gram) PO DAILY Nonsteroidal anti-inflammatory #270 tabs 11/05/22 [Rx Last Taken 01/06/23] omeprazole 20 mg capsule,delayed release 20 mg PO DAILY GERD #30 caps 11/22/22 [Rx Last Taken 01/06/23] potassium chloride 20 mEq tablet,extended release(part/cryst) 20 meq PO TID supplement 11/22/22 [History Last Taken 01/06/23] loperamide 2 mg capsule (Imodium A-D) 4 mg (2 x 2 mg) PO Q6H PRN Diarrhea #1 cap 11/25/22 [Rx Last Taken Unknown] [id number] 36,000-114,000-180,000 unit capsule,delay rel (Creon) See Rx Instructions PO .COMPLEX supplement #540 caps 12/25/22 [Rx Last Taken 01/06/23] metoprolol succinate 25 mg tablet,extended release 24 hr 25 mg PO DAILY BP 01/03/23 [History Last Taken 01/06/23] prednisone 20 mg tablet 20 mg PO BID steriod #60 tabs 01/03/23 [Rx Last Taken 01/06/23] mirtazapine 15 mg tablet 15 mg PO QHS .Antidepressant 01/07/23 [History Last Taken 01/06/23] dicyclomine 10 mg capsule 10 mg PO TIDAC IBS #30 caps 01/10/23 [Rx Last Taken Unknown] oseltamivir 75 mg capsule 75 mg PO BID antiviral #7 caps 01/10/23 [Rx Last Taken Unknown] Allergy/AdvReac Type Severity Reaction Status Date / Time No Known Allergies Allergy Verified 01/07/23 13:58 Family History (Updated 01/12/23 @ 00:[address] Tatum Burns MD) Sister Heart disease Mother No problems noted. Father Cancer Surgical History History of left heart catheterization (10/03/21) Hx of colonoscopy Hx of left cataract extraction Hx of right cataract extraction Hx of transurethral resection of prostate Social History (Updated 01/11/23 @ 23:[address] Tatum Burns MD) household members: spouse and family Smoking Status: Former smoker quit date: 07/15/82 pack-years: 25 alcohol intake: current alcohol intake frequency: holidays/special occasions only Alcohol type: beer substance use type: does not use caffeine: Yes Type: coffee Number of servings: 2 ROS ROS ED Constitutional Constitutional ED: Denies chills or fever(s) ENT ENT ED: Denies sore throat Cardiovascular Cardiovascular: Denies chest pain Respiratory/Chest Respiratory/Chest: Denies cough or dyspnea Gastrointestinal Gastrointestinal: Reports diarrhea and nausea; Denies abdominal pain or vomiting Genitourinary Genitourinary ED: Denies dysuria Musculoskeletal Musculoskeletal: Denies myalgias Integumentary Denies rash Neurologic Neurologic: Denies headache(s) Hematologic/Lymphatic Hematologic/Lymphatic: Denies easy bleeding or easy bruising EXAM Physical Exam Const Vital Signs: 01/11/23 22:14 Temperature 97.8 F Temperature Source Oral Pulse Rate 64 Respiratory Rate 18 Blood Pressure 120/72 Blood Pressure Mean 88 Pulse Ox 97 Oxygen Delivery Method Room Air Positive well developed and no apparent distress General Appearance ED: well developed HEENT Reports dry mucous membranes Mouth ED: Yes dry mucous membranes Mouth: dry mucous membranes Eyes PERRL and EOMs intact bilaterally General Eye ED: Negative for scleral icterus Neck supple Resp normal respiratory effort and clear to auscultation bilaterally Cardio regular rate and regular rhythm GI non-tender and non-distended Auscultation: hyperactive bowel sounds Palpation: soft Extremity normal to inspection Neuro oriented x3 and CN's II-XII intact bilaterally Sensorium / Orientation: alert Psych mental status grossly normal Skin no rashes or lesions noted and No no jaundice Skin Narrative: Skin turgor is increased MDM MDM MDM Narrative Medical decision making narrative: Patient presented to the ER with stable vitals. His abdomen is soft and nonsurgical. His previous chart from recent admission was reviewed. At this time patient still has failure to thrive with generalized weakness and dehydration based on exam and secondary to his repeat labs were obtained. Labs revealed no clinically significant findings which is mild drop in his sodium at 128. Patient was started on stress dose hydrocortisone and given 2 L of IV fluid. On reevaluation he remains in no acute distress. He does not have acute kidney injury or surgical abdomen but with his persistent dehydration and diarrhea it was felt that he would benefit from continued IV rehydration and potential PT OT/physical therapy evaluation. Secondary to this medicine was contacted they do agree to accept the patient and he was admitted to their service in stable condition for further care. History & Record Review Discussion w/independent historian: Patient and Family Lab Data Attestation: I reviewed the patient's lab results. Labs: Laboratory Results - last 24 hr 01/11/23 01/11/23 22:46 22:46 WBC 8.6 RBC 3.82 L Hgb 11.8 L Hct 35.0 L MCV 91.6 MCH 30.9 MCHC 33.7 D RDW Std Deviation 46.1 H RDW Coeff of Jagjit 13.8 Plt Count 262 MPV 8.9 Immature Gran % (Auto) 1.600 H Neut % (Auto) 70.4 H Lymph % (Auto) 17.7 L [place] % (Auto) 10.1 H Eos % (Auto) 0.0 Baso % (Auto) 0.2 Absolute Neuts (auto) 6.1 Absolute Lymphs (auto) 1.53 Nucleated RBC % 0.2 Sodium 128 L Potassium 4.6 Chloride 96 L Carbon Dioxide 28.0 Anion Gap 4 L BUN 20 H Creatinine 1.01 Estim Creat Clear Calc 49.82 Est GFR (MDRD) Af Amer 90 Est GFR (MDRD) Non-Af 75 BUN/Creatinine Ratio 19.8 Glucose 133 H Calcium 8.6 Magnesium 2.4 2.3 Management Discussion w/another healthcare provider: Hospitalist Discharge Plan Dx/Rx/DC Orders Clinical Impression: Intractable diarrhea, Dehydration, Prostate cancer, Bladder cancer Disposition Disposition: Acute Care [facility] Discharge Date/Time: 01/12/23 01:13
[2023-01-12] VITALS (7 sets, daily range): BP systolic 109–147; BP diastolic 69–78; PULSE 60–67; RESP 16–18; TEMP 36.4–36.9; O2SAT 94–96; BMI 21.4
[2023-01-12 00:15] LABS: Magnesium 2.3 mg/dL (1.6-2.6)
[2023-01-12] MEDS: 0.9% Normal Saline 1,000 ML 100 ML IV ×2 (01:44→12:42)
[2023-01-12 06:35] LABS: Absolute Lymphocyte Count 1.27 X10^3/uL (0.83-4.51); Absolute Neutrophil Count 4.8 X10^3/uL (2.0-7.7); Basophil# 0.01 X10^3/uL; Basophil% 0.1 % (0-1); Hematocrit 31.4 % (40-54); Hemoglobin 10.6 g/dL (13.0-16.5); Lymphocyte # 1.27 X10^3/ul (0.83-4.51); Lymphocyte % 18.9 % (19-41); Mean Corp Hgb Conc 33.8 g/dL (32-36); Mean Corpuscular Hgb 30.8 pg (27.0-32.0); Mean Corpuscular Volume 91.3 fL (80-94); Mean Platelet Vol. 9.1 fl (6.2-12.0); Monocyte# 0.58 X10^3/uL; Monocyte% 8.6 % (0-10); NRBC Flagged by Analyzer 0 % (0-5); Neutrophil # 4.77 X10^3/uL (2.7-7.7); Neutrophil % 71.1 % (47-70); Platelet Count 219 K/mm3 (150-450); RBC Distribution Width CV 13.8 % (11.6-14.6); Red Blood Count 3.44 M/mm3 (4.6-6.2); White Blood Count 6.7 K/mm3 (4.4-11.0)
[2023-01-12 07:45] LABS: ALB/GLOB Ratio 0.7 RATIO (0.9-2.4); AST(SGOT) 34 U/L (15-37); Alanine Aminotransfer ALT/SGPT 16 U/L (16-61); Albumin, Serum 2.2 g/dL (3.2-5.0); Alkaline Phosphatase 203 U/L (45-117); Anion Gap 5 (5-15); BUN 16 mg/dL (7-18); BUN/Creat Ratio 23.6 RATIO (10-20); Calcium,Total 7.9 mg/dL (8.5-10.1); Chloride 105 mmol/L (98-107); Creatinine, Serum 0.68 mg/dL (0.70-1.30); EST Glomerular Filtration Rate 118 mL/min (>60); Est Glom Filt Rate - Afr Amer 143 mL/min (>60); Estimated Creatinine Clearance 49.78 ml/min; Globulin 3.1 g/dL (2.2-4.2); Glucose 133 mg/dL (74-106); Potassium 3.9 mmol/L (3.5-5.1); Protein, Total 5.3 g/dL (6.4-8.2); Sodium Level 134 mmol/L (136-145)
--- NOTE | 2023-01-12 08:09 | PN.HOSP_ITS ---
Reason for Visit Reason for Visit: Diagnoses Diarrhea, unspecified (01/11/23) Subjective Subjective Feels slightly less weak today but continues to have diarrhea, not wonderful PO intake but denies nausea or abd pain Objective Data Objective Data Vital Signs: Vital Signs Temp Pulse Resp BP Pulse Ox O2 Del Method 97.6 F L 61 16 147/78 H 94 Room Air 01/12/23 01:43 01/12/23 01:43 01/12/23 01:43 01/12/23 01:43 01/12/23 01:43 01/12/23 01:45 Oxygen Delivery Method Room Air Weight: 64 kg Body Mass Index (BMI) 21.4 Intake & Output: Intake and Output for Last 24 Hours 01/10/23 01/11/23 01/12/23 23:59 23:59 23:59 Intake Total 1150 / 1150 Balance 1150 / 1150 Lab / Micro Data 01/12/23 05:45 01/12/23 05:45 Labs: Laboratory Results - last 24 hr 01/11/23 22:46: WBC 8.6, RBC 3.82 L, Hgb 11.8 L, Hct 35.0 L, MCV 91.6, MCH 30.9, MCHC 33.7 D, RDW Std Deviation 46.1 H, RDW Coeff of Jagjit 13.8, Plt Count 262, MPV 8.9, Immature Gran % (Auto) 1.600 H, Neut % (Auto) 70.4 H, Lymph % (Auto) 17.7 L, [place] % (Auto) 10.1 H, Eos % (Auto) 0.0, Baso % (Auto) 0.2, Absolute [place] ts (auto) 6.1, Absolute Lymphs (auto) 1.53, Nucleated RBC % 0.2, Sodium 128 L, Potassium 4.6, Chloride 96 L, Carbon Dioxide 28.0, Anion Gap 4 L, BUN 20 H, Creatinine 1.01, Estim Creat Clear Calc 49.82, Est GFR (MDRD) Af Amer 90, Est GFR (MDRD) Non-Af 75, BUN/Creatinine Ratio 19.8, Glucose 133 H, Calcium 8.6, Magnesium 2.4 01/11/23 22:46: Magnesium 2.3 01/12/23 05:45: WBC 6.7, RBC 3.44 L, Hgb 10.6 L, Hct 31.4 L, MCV 91.3, MCH 30.8, MCHC 33.8, RDW Std Deviation 46.0 H, RDW Coeff of Jagjit 13.8, Plt Count 219, MPV 9.1, Immature Gran % (Auto) 1.300 H, Neut % (Auto) 71.1 H, Lymph % (Auto) 18.9 L , [place] % (Auto) 8.6, Eos % (Auto) 0.0, Baso % (Auto) 0.1, Absolute Neuts (auto) 4.8, Absolute Lymphs (auto) 1.27, Nucleated RBC % 0, Sodium 134 L, Potassium 3.9, Chloride 105, Carbon Dioxide 24.0, Anion Gap 5, BUN 16, Creatinine 0.68 L, Estim Creat Clear Calc 49.78, Est GFR (MDRD) Af Amer 143, Est GFR (MDRD) Non-Af 118, BUN/Creatinine Ratio 23.6 H, Glucose 133 H, Calcium 7.9 L, Total Bilirubin 0.50, AST 34, ALT 16, Alkaline Phosphatase 203 H, Total Protein 5.3 L, Albumin 2.2 L, Globulin 3.1, Albumin/Globulin Ratio 0.7 L Physical Exam Narrative General: Alert, thin HEENT: Atraumatic, normocephalic Eyes: Anicteric, normal conjunctiva, extraocular movements grossly intact Neck: Supple Respiratory: Clear to auscultation bilaterally, normal respiratory effort Cardiovascular: Regular rate and rhythm GI: Soft, nontender, nondistended Extremities: No edema Musculoskeletal: Moving all extremities Neuro: No overt focal neurological deficits Skin: No rashes appreciated Psych: Cooperative, tearful Assessment & Plan Assessment/Plan (1) Intractable diarrhea: PLAN: Plan 82-year-old male chronic left lower extremity mild lymphedema, metastatic prostate cancer and 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 Morgan on immunotherapy who presented 01/11/2023 with worsening diarrhea. He had developed immunotherapy colitis and was placed on prednisone however due to recurrent severe diarrhea he had a recent admission 01/07 - 01/10 and was discharged home however Re-presented again the following day with weakness and worsening diarrhea. 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 Morgan consulted -Solu-Medrol IV -Nutrition consult/evaluation requested -On 01/07 was C. difficile negative -Had negative enteric panel 12/04 but given timeline we will repeat enteric panel -Can consider resuming loperamide if enteric panel negative # Acute on chronic hyponatremia -suspect hypovolemic secondary to GI losses -Admission sodium 128, prior baseline appears to be 134?135 -Continue hydration and monitor CMP -01/12: Improved this a.m. 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 #Hypertension: Continue home regimen including isosorbide, metoprolol with hold parameters as needed, PRN hydralazine. #Severe Protein-Calorie Malnutrition: Patient with ongoing persistent diarrhea, poor oral intake, will request nutrition consultation. #Anxiety and depression: We will continue mirtazapine home regimen. #Former tobacco use: Encourage continued tobacco cessation. #GERD: We will continue patient on PPI. #SELENE: CPAP q HS if amenable. #DVT prophylaxis: Loveno sub q Time spent in the patient's overall evaluation,decision-making process, review of diagnostic data, adjustment of management, discussion with other providers, nursing nursing and ancillary staff involved in patient's care documentation, 36 minutes Charges/Coding Visit Charges Inpatient E&M: 05948 Subs Hosp L3
[2023-01-12] MEDS: Enoxaparin 40 MG/0.4 ML Syringe SC (09:29)
[2023-01-12] MEDS: Menthol/Lanolin/Calamine/Znox 113 GM Tube 1 APPLIC TOPICAL ×4 (09:38→21:43)
[2023-01-12] MEDS: Iron Polysaccharide Complex 150 MG CAPSULE PO (10:14)
[2023-01-12] MEDS: Metoprolol(XL)Succ 25 MG Tablet PO (10:15)
[2023-01-12] MEDS: Pantoprazole Sodium 20 MG Tablet PO (10:15)
--- NOTE | 2023-01-12 12:25 | CON.PCM.ON_ITS ---
Assessment & Plan Assessment/Plan (1) Intractable diarrhea: Status: Acute Code(s): R19.7 - Diarrhea, unspecified Plan: To continue supportive care. (2) Colitis: Status: Acute Code(s): K52.9 - Noninfective gastroenteritis and colitis, unspecified Plan: This is exacerbation of Keytruda induced colitis. Suggest increase Methylprednisone to 1mg/kg/day. If no improvement in 3 days then can go up to 2mg/kg/day. (3) Mood altered: Status: Acute Code(s): R45.86 - Emotional lability Plan: To try Tylenol. HPI Consult Data Date of Service:: 01/12/23 PCP / Referring Provider: Dr. Levar Tran MD Attending: Dr. Cady Chao MD Chief Complaint Chief Complaint: Asked to see patient for colitis. History of Present Illness History of Present Illness: 82-year-old man with history of metastatic bladder cancer and prostate cancer, on therapy with Keytruda. He developed colitis associated with Keytruda therapy, was recently admitted with influenza and exacerbation of colitis. Discharged home on steroids but diarrhea has become uncontrollable so readmitted to the hospital. This morning he feels a little better with less diarrhea. Advanced Directives Power of Hospital Aide: Yes Living Will: Yes [facility] Medical History Ambulates with cane Anemia Anorexia Anxiety Bladder disease Cardiology follow-up encounter Colitis Debility Depression Diarrhea Dilated pancreatic duct Dizziness Encounter for education Fatigue Former smoker History of echocardiogram History of edema History of pain when walking History of stress test Hypertension Hypokalemia Influenza B Left leg swelling Loss of hearing Lymphedema Nonobstructive atherosclerosis of coronary artery Oral candidiasis Prostate disease Severe malnutrition Shortness of breath on exertion Sleep apnea Trigeminal nerve disease Vomiting Wears glasses Home Medications carboxymethylcellulose 0.5 %-glycerin 0.9 % eye drops 1 drp ophthalmic (eye) PRN PRN Dry Eye(S) 09/26/21 [History Last Taken 01/06/23] isosorbide mononitrate 30 mg tablet,extended release 24 hr 30 mg PO DAILY heart #30 tabs 06/18/22 [Rx Last Taken 01/06/23] ibuprofen 600 mg tablet 600 mg PO Q6H PRN Pain 06/29/22 [History Last Taken Unknown] aspirin 81 mg chewable tablet 81 mg PO DAILY heart health 07/04/22 [History Last Taken 01/06/23] polysaccharide iron complex 150 mg iron capsule (Ferrex) 150 mg PO DAILY supplement 90 days #90 caps 07/27/22 [Rx Last Taken 01/06/23] bicalutamide 50 mg tablet 50 mg PO DAILY Hormone therapy 10/03/22 [History Last Taken 01/06/23] mesalamine 1.2 gram tablet,delayed release 3.6 g (3 x 1.2 gram) PO DAILY Nonsteroidal anti-inflammatory #270 tabs 11/05/22 [Rx Last Taken 01/06/23] omeprazole 20 mg capsule,delayed release 20 mg PO DAILY GERD #30 caps 11/22/22 [Rx Last Taken 01/06/23] potassium chloride 20 mEq tablet,extended release(part/cryst) 20 meq PO TID supplement 11/22/22 [History Last Taken 01/06/23] loperamide 2 mg capsule (Imodium A-D) 4 mg (2 x 2 mg) PO Q6H PRN Diarrhea #1 cap 11/25/22 [Rx Last Taken Unknown] ntpgfc-[id number]-zfdztmg 36,000-114,000-180,000 unit capsule,delay rel (Creon) See Rx Instructions PO .COMPLEX supplement #540 caps 12/25/22 [Rx Last Taken 01/06/23] metoprolol succinate 25 mg tablet,extended release 24 hr 25 mg PO DAILY BP 01/03/23 [History Last Taken 01/06/23] prednisone 20 mg tablet 20 mg PO BID steriod #60 tabs 01/03/23 [Rx Last Taken 01/06/23] mirtazapine 15 mg tablet 15 mg PO QHS .Antidepressant 01/07/23 [History Last Taken 01/06/23] dicyclomine 10 mg capsule 10 mg PO TIDAC IBS #30 caps 01/10/23 [Rx Last Taken Unknown] oseltamivir 75 mg capsule 75 mg PO BID antiviral #7 caps 01/10/23 [Rx Last Taken Unknown] Allergy/AdvReac Type Severity Reaction Status Date / Time No Known Allergies Allergy Verified 01/07/23 13:58 Family History (Updated 01/12/23 @ 00:[address] Tatum Burns MD) Sister Heart disease Mother No problems noted. Father Cancer Surgical History History of left heart catheterization (10/03/21) Hx of colonoscopy Hx of left cataract extraction Hx of right cataract extraction Hx of transurethral resection of prostate Social History (Updated 01/11/23 @ 23:[address] Tatum Burns MD) household members: spouse and family Smoking Status: Former smoker quit date: 07/15/82 pack-years: 25 alcohol intake: current alcohol intake frequency: holidays/special occasions only Alcohol type: beer substance use type: does not use caffeine: Yes Type: coffee Number of servings: 2 ROS Constitutional Constitutional: Reports fatigue and poor appetite ENT HEENT: Denies hoarseness Cardiovascular Cardiovascular: Denies chest pain Respiratory/Chest Respiratory/Chest: Denies chest tightness or cough Gastrointestinal Gastrointestinal: Reports diarrhea; Denies abdominal pain or hematochezia Genitourinary Genitourinary: Denies dysuria Musculoskeletal Musculoskeletal: Reports other Details: uses a walker Psychiatric Psychiatric: Reports depression Hematologic/Lymphatic Hematologic/Lymphatic: Denies easy bleeding, easy bruising or lymphadenopathy Physical Exam Const alert and oriented x3 HEENT normocephalic Eyes PERRL and no scleral icterus Neck no lymphadenopathy Lymph Lymphatic: no lymphadenopathy noted Chest inspection of chest normal Resp normal respiratory effort and clear to auscultation bilaterally Cardio regular rate, regular rhythm, S1 normal heart sound, S2 normal heart sound and no murmurs GI normal to inspection, nondistended, normoactive bowel sounds Extremity normal to inspection and no clubbing, cyanosis or edema Neuro CN's II-XII intact bilaterally and moves all extremities Psych Psych Narrative: Depressed mood. Vital Signs Temperature 97.5 F L 01/12/23 08:15 Temperature Source Oral 01/12/23 08:15 Pulse Rate 60 01/12/23 10:15 Respiratory Rate 16 01/12/23 08:15 Respiratory Effort Normal, Non-Labored 01/12/23 01:45 Respiratory Depth Normal 01/12/23 01:45 Respiratory Pattern Normal 01/12/23 01:45 Blood Pressure 121/77 H 01/12/23 08:15 Blood Pressure Mean 91 01/12/23 08:15 Blood Pressure Source Monitor 01/12/23 08:15 Blood Pressure Position Semi-Fowlers 01/12/23 08:15 Blood Pressure Location Left Arm 01/12/23 08:15 Pulse Ox 96 01/12/23 08:15 Oxygen Delivery Method Room Air 01/12/23 08:15 Laboratory Results - last 24 hr 01/11/23 22:46: WBC 8.6, RBC 3.82 L, Hgb 11.8 L, Hct 35.0 L, MCV 91.6, MCH 30.9, MCHC 33.7 D, RDW Std Deviation 46.1 H, RDW Coeff of Jagjit 13.8, Plt Count 262, MPV 8.9, Immature Gran % (Auto) 1.600 H, Neut % (Auto) 70.4 H, Lymph % (Auto) 17.7 L, [place] % (Auto) 10.1 H, Eos % (Auto) 0.0, Baso % (Auto) 0.2, Absolute Neuts (auto) 6.1, Absolute Lymphs (auto) 1.53, Nucleated RBC % 0.2, Sodium 128 L , Potassium 4.6, Chloride 96 L, Carbon Dioxide 28.0, Anion Gap 4 L, BUN 20 H, Creatinine 1.01, Estim Creat Clear Calc 49.82, Est GFR (MDRD) Af Amer 90, Est GFR (MDRD) Non-Af 75, BUN/Creatinine Ratio 19.8, Glucose 133 H, Calcium 8.6, Magnesium 2.4 01/11/23 22:46: Magnesium 2.3 01/12/23 05:45: WBC 6.7, RBC 3.44 L, Hgb 10.6 L, Hct 31.4 L, MCV 91.3, MCH 30.8, MCHC 33.8, RDW Std Deviation 46.0 H, RDW Coeff of Jagjit 13.8, Plt Count 219, MPV 9.1, Immature Gran % (Auto) 1.300 H, Neut % (Auto) 71.1 H, Lymph % (Auto) 18.9 L , [place] % (Auto) 8.6, Eos % (Auto) 0.0, Baso % (Auto) 0.1, Absolute Neuts (auto) 4.8, Absolute Lymphs (auto) 1.27, Nucleated RBC % 0, Sodium 134 L, Potassium 3.9, Chloride 105, Carbon Dioxide 24.0, Anion Gap 5, BUN 16, Creatinine 0.68 L, Estim Creat Clear Calc 49.78, Est GFR (MDRD) Af Amer 143, Est GFR (MDRD) Non-Af 118, BUN/Creatinine Ratio 23.6 H, Glucose 133 H, Calcium 7.9 L, Total Bilirubin 0.50, AST 34, ALT 16, Alkaline Phosphatase 203 H, Total Protein 5.3 L, Albumin 2.2 L, Globulin 3.1, Albumin/Globulin Ratio 0.7 L Charges/Coding Visit Charges Office Visits / Consults: 21524 IP Consult L3
--- NOTE | 2023-01-12 12:35 | CASEMGMT ---
RAMIRO HURTADO Readmission Review: Index admission: 01/07/23 thru 01/10/23 Dx: colitis secondary to immunotherapy Readmission: 01/11/23 Dx: Acute persistent immunotherapy colitis w/ intractable diarrhea Pt admitted on the above noted dates for the noted diagnoses. Pt lives with his spouse who is currently receiving hospice services. Pt states he is enrolled in the [facility] palliative care program. Pt states he was taking his medications upon discharge, but states he had a lot of difficulty with diarrhea that prompted him to return. Pt states he continues to have the [employer]ING CONS[employer] services in the daytime and his daughter is assisting with pt's at night. Pt tearful regarding this home situation and concerns re: running out of money for the [employer] UND[employer]ING CONSULTANT for his and the amount of help his daughter is having to provide. Pt states the hospice SW has been involved with them to assist. Pt was provided additional support by SW during pt's previous visit. Pt spoke of going to a SNF to help alleviate some work on pt's daughter. Pt states he has discussed this with his daughter who states she won't have it. Reviewed PT eval which notes pt was a SBA with [facility] and ambulated 125 ft. OT doesn't recommend continued therapy. Pt states he was discharged from 2 weeks ago and has the exercises that they provided for him to do. Discussed possible resumption but pt states he feels he can continue the exercises and that the hospice nurses check on him when they visit his plus he receives monthly palliative care POOL SERVICER visits. Will continue to monitor and assist with DC needs as determined. Franklin Nevarez RN CM
--- NOTE | 2023-01-12 15:27 | CASEMGMT ---
RN GENESIS Follow-up: Per discussion with pt's RN Cullen, pt is interested in SNF placement and we can contact his daughters to discuss. This RN CM to pt's bedside and pt resting quietly with eyes closed. This RN CM phoned pt's daughter Vani who states she is a teacher and is currently not working. She has been assisting with pt's 's care and has been assisting pt also. Vani states she is off for another 8 weeks and is still available and willing to care for pt and pt's . Vani states she is tired but she wants to care for her parents and prefers pt returns home and does not go to a SNF. Discussed pt's PT eval and short need for SNF if qualifies. Vani also agreed pt may receive more prompt care in the home than if at a SNF. Vani aware of pt's feelings regarding feeling a burden and states she has attempted to reassure pt. Vani has been in contact with Dr. Morgan and they are working to improve pt's mental state prior to making next treatment decisions. Will monitor pt's clinical progress and assist with further dc needs as determined. Franklin Nevarez, RAMIRO CM
[2023-01-12] MEDS: Acetaminophen 500 MG Tablet PO ×2 (15:43→21:42)
[2023-01-12] MEDS: Ensure Plus High Protein 120 ML LIQUID PO (18:15)
[2023-01-12] MEDS: Loperamide 2 MG Capsule PO (20:04)
[2023-01-12] MEDS: Mirtazapine 15 MG Tablet PO (21:43)
[2023-01-13 01:20] VITALS: BP 148/78; PULSE 49; RESP 18; TEMP 36.3; O2SAT 99
[2023-01-13 06:00] VITALS: BMI 21.2
[2023-01-13 07:03] LABS: Absolute Lymphocyte Count 1.83 X10^3/uL (0.83-4.51); Absolute Neutrophil Count 5.8 X10^3/uL (2.0-7.7); Basophil# 0.03 X10^3/uL; Basophil% 0.4 % (0-1); Hematocrit 41.8 % (40-54); Hemoglobin 13.3 g/dL (13.0-16.5); Lymphocyte # 1.83 X10^3/ul (0.83-4.51); Lymphocyte % 22.2 % (19-41); Mean Corp Hgb Conc 31.8 g/dL (32-36); Mean Corpuscular Hgb 29.8 pg (27.0-32.0); Mean Corpuscular Volume 93.7 fL (80-94); Mean Platelet Vol. 9.7 fl (6.2-12.0); Monocyte# 0.49 X10^3/uL; NRBC Flagged by Analyzer 0 % (0-5); Neutrophil # 5.79 X10^3/uL (2.7-7.7); Neutrophil % 70.3 % (47-70); Platelet Count 264 K/mm3 (150-450); RBC Distribution Width CV 13.8 % (11.6-14.6); RBC Distribution Width SD 46.6 fl (35.1-43.9); Red Blood Count 4.46 M/mm3 (4.6-6.2); White Blood Count 8.2 K/mm3 (4.4-11.0)
[2023-01-13 07:30] LABS: ALB/GLOB Ratio 0.7 RATIO (0.9-2.4); AST(SGOT) 29 U/L (15-37); Alanine Aminotransfer ALT/SGPT 17 U/L (16-61); Albumin, Serum 2.7 g/dL (3.2-5.0); Alkaline Phosphatase 219 U/L (45-117); Anion Gap 6 (5-15); BUN 14 mg/dL (7-18); BUN/Creat Ratio 18.8 RATIO (10-20); Calcium,Total 8.6 mg/dL (8.5-10.1); Chloride 104 mmol/L (98-107); Creatinine, Serum 0.75 mg/dL (0.70-1.30); EST Glomerular Filtration Rate 106 mL/min (>60); Est Glom Filt Rate - Afr Amer 128 mL/min (>60); Estimated Creatinine Clearance 49.31 ml/min; Globulin 3.9 g/dL (2.2-4.2); Glucose 129 mg/dL (74-106); Potassium 4.1 mmol/L (3.5-5.1); Protein, Total 6.6 g/dL (6.4-8.2); Sodium Level 135 mmol/L (136-145)
[2023-01-13 09:23] VITALS: BP 145/80; PULSE 68; RESP 16; TEMP 36.6; O2SAT 100
[2023-01-13] MEDS: 0.9% Normal Saline 1,000 ML 50 ML IV (09:35)
[2023-01-13] MEDS: Enoxaparin 40 MG/0.4 ML Syringe SC (09:36)
[2023-01-13 09:37] VITALS: PULSE 68
[2023-01-13] MEDS: Pantoprazole Sodium 20 MG Tablet PO (09:37)
[2023-01-13] MEDS: Metoprolol(XL)Succ 25 MG Tablet PO (09:37)
[2023-01-13] MEDS: Iron Polysaccharide Complex 150 MG CAPSULE PO (09:37)
[2023-01-13] MEDS: Acetaminophen 500 MG Tablet PO ×2 (09:38→22:29)
[2023-01-13] MEDS: Menthol/Lanolin/Calamine/Znox 113 GM Tube 1 APPLIC TOPICAL ×4 (09:39→22:30)
[2023-01-13] MEDS: Ensure Plus High Protein 120 ML LIQUID PO ×3 (09:45→18:22)
--- NOTE | 2023-01-13 12:11 | PCM.PN.HOSP ---
Reason for Visit Reason for Visit: Diagnoses Noninfective gastroenteritis and colitis, unspecified (01/11/23) Diarrhea, unspecified (01/11/23) Emotional lability (01/11/23) Subjective Subjective Pt continues to report diarrhea, no abd pain or nausea Objective Data Objective Data Vital Signs: Vital Signs Temp Pulse Resp BP Pulse Ox O2 Del Method 97.9 F 68 16 145/80 H 100 Room Air 01/13/23 09:23 01/13/23 09:37 01/13/23 09:23 01/13/23 09:23 01/13/23 09:23 01/13/23 09:23 Oxygen Delivery Method Room Air Weight: 63.4 kg Body Mass Index (BMI) 21.2 Intake & Output: Intake and Output for Last 24 Hours 01/11/23 01/12/23 01/13/23 23:59 23:59 23:59 Intake Total 2298.33 / 2648.33 1201.67 / 1201.67 Balance 2298.33 / 2648.33 1201.67 / 1201.67 Medical Nutrition Assessment Dietitian: Malnutrition Criteria Met Start: 01/12/23 16:05 Freq: Status: Active Protocol: Document 01/12/23 16:05 ALICE (Rec: 01/12/23 16:05 ALICE [id number]) Nutrition Malnutrition Evidence of Malnutrition Exists Yes Malnutrition (severe): Chronic Evidenced By Suboptimal Energy Intake ( Severe),Weight Loss (Severe) Clinical Problem Chronic Disease or Condition Related Malnutrition Etiology related to inadequate oral intake and increased energy expenditure of metastatic disease Signs/Symptoms as evidenced by significant unintentional weight loss of ~ 19% in 7 months and inadequate oral intakes meeting less than 75% of estimated nutrient needs for >1 month. Status Active Problem Recommendation Dietitian Recommendations/Changes Ensure Plus HP 120mL 4x/day with medpass, Magic Cup w/ lunch and dinner and Beneprotein & yogurt w/ meals to help increase oral intakes. Continue with Regular diet for liberalization. Discussed preferences with the diet office. Will continue to monitor oral intakes and modify interventions as needed . Lab / Micro Data 01/13/23 05:40 01/13/23 05:40 Labs: Laboratory Results - last 24 hr 01/13/23 05:40: WBC 8.2, RBC 4.46 L, Hgb 13.3, Hct 41.8, MCV 93.7, MCH 29.8, MCHC 31.8 L D, RDW Std Deviation 46.6 H, RDW Coeff of Jagjit 13.8, Plt Count 264, MPV 9.7, Immature Gran % (Auto) 1.100 H, Neut % (Auto) 70.3 H, Lymph % (Auto) 22.2, [place] % (Auto) 6.0, Eos % (Auto) 0.0, Baso % (Auto) 0.4, Absolute Neuts (auto) 5.8, Absolute Lymphs (auto) 1.83, Nucleated RBC % 0, Sodium 135 L, Potassium 4.1, Chloride 104, Carbon Dioxide 25.0, Anion Gap 6, BUN 14, Creatinine 0.75, Estim Creat Clear Calc 49.31, Est GFR (MDRD) Af Amer 128, Est GFR (MDRD) Non-Af 106, BUN/Creatinine Ratio 18.8, Glucose 129 H, Calcium 8.6, Total Bilirubin 0.50, AST 29, ALT 17, Alkaline Phosphatase 219 H, Total Protein 6.6, Albumin 2.7 L, Globulin 3.9, Albumin/Globulin Ratio 0.7 L Micro: Microbiology 01/12/23 01:35 Stool Enteric Bacteriology - Final Physical Exam Narrative General: Alert, thin HEENT: Atraumatic, normocephalic Eyes: Anicteric, normal conjunctiva, extraocular movements grossly intact Neck: Supple Respiratory: Clear to auscultation bilaterally, normal respiratory effort Cardiovascular: Regular rate and rhythm GI: Soft, nontender, nondistended Extremities: No edema Musculoskeletal: Moving all extremities Neuro: No overt focal neurological deficits Skin: No rashes appreciated Psych: Cooperative Assessment & Plan Assessment/Plan (1) Intractable diarrhea: PLAN: Plan 82-year-old male chronic left lower extremity mild lymphedema, metastatic prostate cancer and 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 Morgan on immunotherapy who presented 01/11/2023 with worsening diarrhea. He had developed immunotherapy colitis and was placed on prednisone however due to recurrent severe diarrhea he had a recent admission 01/07 - 01/10 and was discharged home however Re-presented again the following day with weakness and worsening diarrhea. 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 Morgan consulted -Solu-Medrol IV -Nutrition consult/evaluation requested -On 01/07 was C. difficile negative -Had negative enteric panel 12/04 but given timeline we will repeat enteric panel -Can consider resuming loperamide if enteric panel negative -01/13: Discussed with Dr. Morgan, patient on 1 mg/kg IV Solu-Medrol split to 2 doses, if not improved in the next 1 to 2 days will increase to 2 mg/kg. Enteric panel negative # Acute on chronic hyponatremia -suspect hypovolemic secondary to GI losses -Admission sodium 128, prior baseline appears to be 134?135 -Continue hydration and monitor CMP -01/12: Improved this a.m. 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 #Hypertension: Continue home regimen including isosorbide, metoprolol with hold parameters as needed, PRN hydralazine. #Severe Protein-Calorie Malnutrition: Patient with ongoing persistent diarrhea, poor oral intake, will request nutrition consultation. #Anxiety and depression: We will continue mirtazapine home regimen. #Former tobacco use: Encourage continued tobacco cessation. #GERD: We will continue patient on PPI. #SELENE: Per documentation, can use CPAP q HS if amenable. #DVT prophylaxis: Loveno sub q Time spent in the patient's overall evaluation,decision-making process, review of diagnostic data, adjustment of management, discussion with other providers, nursing nursing and ancillary staff involved in patient's care documentation, 36 minutes Charges/Coding Visit Charges Inpatient E&M: 89399 Subs Hosp L3
[2023-01-13 14:29] VITALS: BP 113/87; PULSE 67; RESP 16; TEMP 36.5; O2SAT 96
[2023-01-13 20:02] VITALS: BP 107/74; PULSE 56; RESP 16; TEMP 36.6; O2SAT 96
[2023-01-13] MEDS: Mirtazapine 15 MG Tablet PO (22:30)
[2023-01-14] VITALS (8 sets, daily range): BP systolic 136–153; BP diastolic 78–91; PULSE 56–64; RESP 16; TEMP 36.1–36.7; O2SAT 94–100; BMI 20.7
[2023-01-14] MEDS: 0.9% Normal Saline 1,000 ML 50 ML IV (03:53)
[2023-01-14 07:08] LABS: Anion Gap 4 (5-15); BUN 15 mg/dL (7-18); BUN/Creat Ratio 21.3 RATIO (10-20); Calcium,Total 8.8 mg/dL (8.5-10.1); Chloride 102 mmol/L (98-107); EST Glomerular Filtration Rate 114 mL/min (>60); Est Glom Filt Rate - Afr Amer 137 mL/min (>60); Estimated Creatinine Clearance 48.22 ml/min; Glucose 134 mg/dL (74-106); Potassium 4.4 mmol/L (3.5-5.1); Sodium Level 132 mmol/L (136-145)
[2023-01-14] MEDS: Pantoprazole Sodium 20 MG Tablet PO (07:26)
[2023-01-14] MEDS: Metoprolol(XL)Succ 25 MG Tablet PO (07:26)
[2023-01-14] MEDS: Enoxaparin 40 MG/0.4 ML Syringe SC (07:26)
[2023-01-14] MEDS: Acetaminophen 500 MG Tablet PO ×2 (07:29→21:52)
[2023-01-14] MEDS: Ensure Plus High Protein 120 ML LIQUID PO ×2 (07:35→17:19)
[2023-01-14] MEDS: Menthol/Lanolin/Calamine/Znox 113 GM Tube 1 APPLIC TOPICAL ×4 (07:35→21:45)
--- NOTE | 2023-01-14 07:44 | PN.HOSP_ITS ---
Reason for Visit Reason for Visit: Diagnoses Noninfective gastroenteritis and colitis, unspecified (01/11/23) Diarrhea, unspecified (01/11/23) Emotional lability (01/11/23) Subjective Subjective Still having the diarrhea, no abdominal pain, did feel like his left leg was bothering him earlier and improved slightly getting up and moving around had some change feeling on top of thigh and toes but no weakness and no contiguous numbness or changes Objective Data Objective Data Vital Signs: Vital Signs Temp Pulse Resp BP Pulse Ox O2 Del Method 98.0 F 61 16 153/84 H 100 Room Air 01/14/23 02:00 01/14/23 07:26 01/14/23 02:00 01/14/23 02:00 01/14/23 02:00 01/14/23 03:00 Oxygen Delivery Method Room Air Weight: 62 kg Body Mass Index (BMI) 20.7 Intake & Output: Intake and Output for Last 24 Hours 01/12/23 01/13/23 01/14/23 23:59 23:59 23:59 Intake Total 2298.33 / 2648.33 1201.67 / 1401.67 1115 / 1115 Balance 2298.33 / 2648.33 1201.67 / 1401.67 1115 / 1115 Medical Nutrition Assessment Dietitian: Malnutrition Criteria Met Start: 01/12/23 16:05 Freq: Status: Active Protocol: Document 01/12/23 16:05 ALICE (Rec: 01/12/23 16:05 ALICE [id number]) Nutrition Malnutrition Evidence of Malnutrition Exists Yes Malnutrition (severe): Chronic Evidenced By Suboptimal Energy Intake ( Severe),Weight Loss (Severe) Clinical Problem Chronic Disease or Condition Related Malnutrition Etiology related to inadequate oral intake and increased energy expenditure of metastatic disease Signs/Symptoms as evidenced by significant unintentional weight loss of ~ 19% in 7 months and inadequate oral intakes meeting less than 75% of estimated nutrient needs for >1 month. Status Active Problem Recommendation Dietitian Recommendations/Changes Ensure Plus HP 120mL 4x/day with medpass, Magic Cup w/ lunch and dinner and Beneprotein & yogurt w/ meals to help increase oral intakes. Continue with Regular diet for liberalization. Discussed preferences with the diet office. Will continue to monitor oral intakes and modify interventions as needed . Lab / Micro Data 01/13/23 05:40 01/14/23 05:35 Labs: Laboratory Results - last 24 hr 01/14/23 05:35: Sodium 132 L, Potassium 4.4, Chloride 102, Carbon Dioxide 26.0, Anion Gap 4 L, BUN 15, Creatinine 0.70, Estim Creat Clear Calc 48.22, Est GFR (MDRD) Af Amer 137, Est GFR (MDRD) Non-Af 114, BUN/Creatinine Ratio 21.3 H, Glu cose 134 H, Calcium 8.8 Micro: Microbiology 01/12/23 01:35 Stool Enteric Bacteriology - Final Physical Exam Narrative General: Alert, thin, appears to be feeling better today HEENT: Atraumatic, normocephalic Eyes: Anicteric, normal conjunctiva, extraocular movements grossly intact Neck: Supple Respiratory: Clear to auscultation bilaterally, normal respiratory effort Cardiovascular: Regular rate and rhythm GI: Soft, nontender, nondistended Extremities: No edema Musculoskeletal: Moving all extremities Neuro: No overt focal neurological deficits Skin: No rashes appreciated Psych: Cooperative Assessment & Plan Assessment/Plan (1) Intractable diarrhea: PLAN: Plan 82-year-old male chronic left lower extremity mild lymphedema, metastatic prostate cancer and 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 Morgan on immunotherapy who presented 01/11/2023 with worsening diarrhea. He had developed immunotherapy colitis and was placed on prednisone however due to recurrent severe diarrhea he had a recent admission 01/07 - 01/10 and was discharged home however Re-presented again the following day with weakness and worsening diarrhea. 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 Morgan consulted -Solu-Medrol IV -Nutrition consult/evaluation requested -On 01/07 was C. difficile negative -Had negative enteric panel 12/04 but given timeline we will repeat enteric panel -Can consider resuming loperamide if enteric panel negative -01/13: Discussed with Dr. Morgan, patient on 1 mg/kg IV Solu-Medrol split to 2 doses, if not improved in the next 1 to 2 days will increase to 2 mg/kg. Enteric panel negative -01/14: We will add Metamucil, presently on 1 mg/kg of IV Solu-Medrol, may need to increase to 2 mg/kg though this a.m. said it was slightly better, oncology following # Acute on chronic hyponatremia -suspect hypovolemic secondary to GI losses -Admission sodium 128, prior baseline appears to be 134?135 -Continue hydration and monitor CMP -01/12: Improved this a.m. 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 -01/14: Had a small amount of red blood in stool x1 with no pain and is stable hemoglobin and no further episodes. Discussed with patient's and risks and benefits of further evaluation and given stability patient agrees on deferral of further investigation especially given metastatic cancer and prognosis and would be willing to revisit if drop in hemoglobin, further bleeding/increase in ble eding #Hypertension: Continue home regimen including isosorbide, metoprolol with hold parameters as needed, PRN hydralazine. #Severe Protein-Calorie Malnutrition: Patient with ongoing persistent diarrhea, poor oral intake, will request nutrition consultation. #Anxiety and depression: We will continue mirtazapine home regimen. #Former tobacco use: Encourage continued tobacco cessation. #GERD: We will continue patient on PPI. #SELENE: Per documentation, can use CPAP q HS if amenable. #DVT prophylaxis: Loveno sub q Time spent in the patient's overall evaluation,decision-making process, review of diagnostic data, adjustment of management, discussion with other providers, nursing nursing and ancillary staff involved in patient's care documentation, 36 minutes Charges/Coding Visit Charges Inpatient E&M: 36386 Subs Hosp L3
[2023-01-14] MEDS: Ferrous Sulfate 325 MG Tablet PO ×3 (08:13→17:17)
[2023-01-14] MEDS: Psyllium 1 PACKET PO ×3 (08:14→21:44)
[2023-01-14 13:06] LABS: Magnesium 2.3 mg/dL (1.6-2.6); Phosphorus 3.1 mg/dL (2.5-4.9)
[2023-01-14 13:44] LABS: Vitamin B12 766 pg/mL (211-911)
--- NOTE | 2023-01-14 15:33 | CASEMGMT ---
Social Work Pt confirms he has a living will and health care POA naming his Kathia Carrillo. Pt made aware documents are not on file at [facility] and requested they be brought in for scanning into EMR. CORINA Sood
--- NOTE | 2023-01-14 15:38 | CASEMGMT ---
Social Work SW met with pt to offer emotional support. Pt tearful throughout conversation as he feels he and are a burden on family. Review of family situation and support provided. Pt enjoys talking about family and appreciative of time with SW to verbalize feelings. Pt dgt Vani refusing for pt to go to SNF as she wants to care for pt and at home. SW will remain available for continued support as needed. CORINA Sood
[2023-01-14] MEDS: Mirtazapine 15 MG Tablet PO (21:44)
[2023-01-15] VITALS (7 sets, daily range): BP systolic 102–140; BP diastolic 64–83; PULSE 53–64; RESP 16–18; TEMP 36.4–36.7; O2SAT 96–99; BMI 19.7
[2023-01-15] MEDS: 0.9% Normal Saline 1,000 ML 50 ML IV ×2 (01:13→21:42)
[2023-01-15] MEDS: Psyllium 1 PACKET PO ×3 (06:28→23:01)
[2023-01-15 07:00] LABS: Absolute Lymphocyte Count 1.59 X10^3/uL (0.83-4.51); Absolute Neutrophil Count 5.2 X10^3/uL (2.0-7.7); Basophil# 0.02 X10^3/uL; Basophil% 0.3 % (0-1); Hematocrit 41.3 % (40-54); Hemoglobin 13.2 g/dL (13.0-16.5); Lymphocyte # 1.59 X10^3/ul (0.83-4.51); Lymphocyte % 21.6 % (19-41); Mean Corpuscular Hgb 29.5 pg (27.0-32.0); Mean Corpuscular Volume 92.2 fL (80-94); Mean Platelet Vol. 9.3 fl (6.2-12.0); Monocyte# 0.53 X10^3/uL; Monocyte% 7.2 % (0-10); NRBC Flagged by Analyzer 0 % (0-5); Neutrophil # 5.15 X10^3/uL (2.7-7.7); Neutrophil % 69.8 % (47-70); Platelet Count 239 K/mm3 (150-450); RBC Distribution Width CV 13.8 % (11.6-14.6); RBC Distribution Width SD 46.4 fl (35.1-43.9); Red Blood Count 4.48 M/mm3 (4.6-6.2); White Blood Count 7.4 K/mm3 (4.4-11.0)
[2023-01-15 07:27] LABS: Anion Gap 5 (5-15); BUN 15 mg/dL (7-18); BUN/Creat Ratio 20.1 RATIO (10-20); Calcium,Total 8.7 mg/dL (8.5-10.1); Chloride 102 mmol/L (98-107); Creatinine, Serum 0.75 mg/dL (0.70-1.30); EST Glomerular Filtration Rate 106 mL/min (>60); Est Glom Filt Rate - Afr Amer 128 mL/min (>60); Estimated Creatinine Clearance 45.89 ml/min; Glucose 120 mg/dL (74-106); Potassium 4.1 mmol/L (3.5-5.1); Sodium Level 133 mmol/L (136-145)
[2023-01-15] MEDS: Ferrous Sulfate 325 MG Tablet PO ×3 (07:35→16:41)
[2023-01-15] MEDS: Enoxaparin 40 MG/0.4 ML Syringe SC (07:35)
[2023-01-15] MEDS: Metoprolol(XL)Succ 25 MG Tablet PO (07:35)
[2023-01-15] MEDS: Pantoprazole Sodium 20 MG Tablet PO (07:36)
[2023-01-15] MEDS: Menthol/Lanolin/Calamine/Znox 113 GM Tube 1 APPLIC TOPICAL ×3 (07:41→16:41)
[2023-01-15] MEDS: Ensure Plus High Protein 120 ML LIQUID PO ×3 (07:42→16:41)
[2023-01-15] MEDS: Acetaminophen 500 MG Tablet PO ×2 (07:44→23:01)
--- NOTE | 2023-01-15 15:29 | PCM.PN.HOSP ---
Reason for Visit Reason for Visit: Diagnoses Noninfective gastroenteritis and colitis, unspecified (01/11/23) Diarrhea, unspecified (01/11/23) Emotional lability (01/11/23) Subjective Subjective Beginning to feel much better, bowel movements decreasing, leg feeling much better as well Objective Data Objective Data Vital Signs: Vital Signs Temp Pulse Resp BP Pulse Ox O2 Del Method 97.8 F 64 16 115/73 98 Room Air 01/15/23 14:32 01/15/23 14:32 01/15/23 14:32 01/15/23 14:32 01/15/23 14:32 01/15/23 14:32 Oxygen Delivery Method Room Air Weight: 59 kg Body Mass Index (BMI) 19.7 Intake & Output: Intake and Output for Last 24 Hours 01/13/23 01/14/23 01/15/23 23:59 23:59 23:59 Intake Total 1201.67 / 1401.67 3115 / 3115 400 / 400 Balance 1201.67 / 1401.67 3115 / 3115 400 / 400 Medical Nutrition Assessment Dietitian: Malnutrition Criteria Met Start: 01/12/23 16:05 Freq: Status: Active Protocol: Document 01/14/23 14:36 LEANDRA (Rec: 01/14/23 14:36 LEANDRA [id number]) Nutrition Malnutrition Evidence of Malnutrition Exists Yes Malnutrition (severe): Chronic Evidenced By Suboptimal Energy Intake ( Severe),Weight Loss (Severe) Clinical Problem Chronic Disease or Condition Related Malnutrition Etiology related to inadequate oral intake and increased energy expenditure of metastatic disease Signs/Symptoms as evidenced by significant unintentional weight loss of ~ 19% in 7 months mobile home servicer and inadequate oral intakes meeting less than 75% of estimated nutrient needs for > 1 month mobile home servicer. Status Active Problem Recommendation Dietitian Recommendations/Changes Continue Ensure Plus HP 120mL 4x/day with medpass, Discontinue Magic Cup w/ lunch and dinner and Beneprotein & yogurt w/ meals as pt trying to cut back on dairy. Continue with Regular diet d/t signs and symptoms of malnutrition. Pt wants SMALL PORTIONS. Will continue to monitor oral intakes and modify interventions as needed. Lab / Micro Data 01/15/23 06:22 01/15/23 06:22 Labs: Laboratory Results - last 24 hr 01/15/23 06:22: WBC 7.4, RBC 4.48 L, Hgb 13.2, Hct 41.3, MCV 92.2, MCH 29.5, MCHC 32.0, RDW Std Deviation 46.4 H, RDW Coeff of Jagjit 13.8, Plt Count 239, MPV 9.3, Immature Gran % (Auto) 1.100 H, Neut % (Auto) 69.8, Lymph % (Auto) 21.6, [place] % (Auto) 7.2, Eos % (Auto) 0.0, Baso % (Auto) 0.3, Absolute Neuts (auto) 5.2, Absolute Lymphs (auto) 1.59, Nucleated RBC % 0, Sodium 133 L, Potassium 4.1, Chloride 102, Carbon Dioxide 26.0, Anion Gap 5, BUN 15, Creatinine 0.75, Estim Creat Clear Calc 45.89, Est GFR (MDRD) Af Amer 128, Est GFR (MDRD) Non-Af 106, BUN/Creatinine Ratio 20.1 H, Glucose 120 H, Calcium 8.7 Micro: Microbiology 01/12/23 01:35 Stool Enteric Bacteriology - Final Physical Exam Narrative General: Alert, thin, appears to be feeling better today HEENT: Atraumatic, normocephalic Eyes: Anicteric, normal conjunctiva, extraocular movements grossly intact Neck: Supple Respiratory: Clear to auscultation bilaterally, normal respiratory effort Cardiovascular: Regular rate and rhythm GI: Soft, nontender, nondistended Extremities: No edema Musculoskeletal: Moving all extremities Neuro: No overt focal neurological deficits Skin: No rashes appreciated Psych: Cooperative Assessment & Plan Assessment/Plan (1) Intractable diarrhea: PLAN: Plan 82-year-old male chronic left lower extremity mild lymphedema, metastatic prostate cancer and 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 Morgan on immunotherapy who presented 01/11/2023 with worsening diarrhea. He had developed immunotherapy colitis and was placed on prednisone however due to recurrent severe diarrhea he had a recent admission 01/07 - 01/10 and was discharged home however Re-presented again the following day with weakness and worsening diarrhea. 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 Morgan consulted -Solu-Medrol IV -Nutrition consult/evaluation requested -On 01/07 was C. difficile negative -Had negative enteric panel 12/04 but given timeline we will repeat enteric panel -Can consider resuming loperamide if enteric panel negative -01/13: Discussed with Dr. Morgan, patient on 1 mg/kg IV Solu-Medrol split to 2 doses, if not improved in the next 1 to 2 days will increase to 2 mg/kg. Enteric panel negative -01/14: We will add Metamucil, presently on 1 mg/kg of IV Solu-Medrol, may need to increase to 2 mg/kg though this a.m. said it was slightly better, oncology following -01/15: Bowel movements decreasing having more form. Discussed with Dr. Morgan, patient doing well tomorrow can likely be DC'd on 80 of prednisone daily # Acute on chronic hyponatremia -suspect hypovolemic secondary to GI losses -Admission sodium 128, prior baseline appears to be 134?135 -Continue hydration and monitor CMP -01/12: Improved this a.m. 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 -01/14: Had a small amount of red blood in stool x1 with no pain and is stable hemoglobin and no further episodes. Discussed with patient's and risks and benefits of further evaluation and given stability patient agrees on deferral of further investigation especially given metastatic cancer and prognosis and would be willing to revisit if drop in hemoglobin, further bleeding/increase in bleeding #Hypertension: Continue home regimen including isosorbide, metoprolol with hold parameters as needed, PRN hydralazine. #Severe Protein-Calorie Malnutrition: Patient with ongoing persistent diarrhea, poor oral intake, will request nutrition consultation. #Anxiety and depression: We will continue mirtazapine home regimen. #Former tobacco use: Encourage continued tobacco cessation. #GERD: We will continue patient on PPI. #SELENE: Per documentation, can use CPAP q HS if amenable. #DVT prophylaxis: Loveno sub q Time spent in the patient's overall evaluation,decision-making process, review of diagnostic data, adjustment of management, discussion with other providers, nursing nursing and ancillary staff involved in patient's care documentation, 36 minutes Charges/Coding Visit Charges Inpatient E&M: 13838 [facility] Hosp L3
[2023-01-15] MEDS: Mirtazapine 15 MG Tablet PO (23:01)
[2023-01-16 03:02] VITALS: BP 142/72; PULSE 55; RESP 18; TEMP 36.5; O2SAT 97
[2023-01-16 06:00] VITALS: BMI 21.2
[2023-01-16] MEDS: Psyllium 1 PACKET PO (06:09)
[2023-01-16 06:54] LABS: Anion Gap 5 (5-15); BUN 16 mg/dL (7-18); BUN/Creat Ratio 22.5 RATIO (10-20); Calcium,Total 8.1 mg/dL (8.5-10.1); Chloride 104 mmol/L (98-107); Creatinine, Serum 0.71 mg/dL (0.70-1.30); EST Glomerular Filtration Rate 112 mL/min (>60); Est Glom Filt Rate - Afr Amer 136 mL/min (>60); Estimated Creatinine Clearance 49.54 ml/min; Glucose 135 mg/dL (74-106); Sodium Level 134 mmol/L (136-145)
[2023-01-16 08:30] VITALS: O2SAT 99
[2023-01-16 08:59] VITALS: BP 99/69; PULSE 85; RESP 16; TEMP 36.6; O2SAT 94
--- NOTE | 2023-01-16 09:33 | DCINST_ITS ---
Discharge Instructions Diet Discharge Diet: Light diet - advance as tolerated Activity Discharge Activity: Use Walker Follow Up Care Test Results: Test results from this visit will be discussed in further detail at your follow- up appointment, if applicable. Discharge Plan Admission Admit Date/Time: 01/11/23 23:51 Primary Reason for Your Visit: Diarrhea Attending Provider: Cady Chao Primary Care Provider: Levar Tran Consulting Providers: Tatum Burns; Carlos Garsia; Cb Morgan; Chelsy Andrade; Saturnino Chua; Rylan Mustafa; Sandro Mclaughlin; Aiden Viera; Kusum Yun STAFF MIDWIFE/APPRENTICESHIP DIRECTOR Instructions Patient Instructions: ED Diet Vomiting Diarrhea Additional Instructions / Restrictions: DISCHARGE INSTRUCTIONS PLEASE READ *Please take this with you to your next doctors appointment* -You will be discharged on 80 mg of prednisone daily, at your follow-up appoint with Dr. Morgan he will instruct you on a taper for the steroid -Please follow-up with Dr. Morgan with oncology upon discharge. Please call their office to schedule hospital follow-up appointment upon discharge. -Your iron supplementation has been changed to ferrous sulfate increased to 3 times a day -Additionally was listed that you are taking potassium supplementation at home, your potassium has been well controlled and within normal limits here, would advise holding potassium supplementation unless otherwise instructed by your prescribing physician -Would also advise taking Metamucil 1 packet 3 times a day, Metamucil can be obtained [id number] - Would proceed using ibuprofen with caution as this can further cause problems with your GI tract. Would discuss with your physician prior to resuming -Please call your primary care provider's office upon discharge to schedule a hospital follow up within 1 week. -For any concerning signs or symptoms please call 911 or proceed to the nearest emergency department Discharge Orders/Prescriptions Prescriptions: New ferrous sulfate [FeroSul] 325 mg (65 mg iron) Tablet 325 mg PO TIDCM 30 Days Qty: 90 0RF prednisone 20 mg tablet 80 mg PO DAILY 14 Days Qty: 56 0RF Rx Instructions: Take 80mg daily until your follow up with Dr. Morgan Continued carboxymethylcellulose-glycern 0.5-0.9 % drops 1 drp ophthalmic (eye) PRN PRN (Reason: Dry Eye(S)) Patient Comments: 1 drop into both eyes as directed isosorbide mononitrate 30 mg tablet extended release 24 hr 30 mg PO DAILY Qty: 30 11RF metoprolol succinate 25 mg tablet extended release 24 hr 25 mg PO DAILY aspirin 81 mg Tablet,Chewable 81 mg PO DAILY bicalutamide 50 mg tablet 50 mg PO DAILY Patient Comments: TAKE 1 TABLET BY MOUTHCONCE DAILY loperamide [Imodium A-D] 2 mg Capsule 4 mg PO Q6H PRN (Reason: Diarrhea) Qty: 1 0RF mirtazapine 15 mg tablet 15 mg PO QHS Patient Comments: Take 1 tablet by mouthEdaily at bedtime. omeprazole 20 mg capsule,delayed release(DR/EC) 20 mg PO DAILY Qty: 30 2RF Held ibuprofen 600 mg Tablet 600 mg PO Q6H PRN (Reason: Pain) Hold Instructions: Resume on 01/23/23. - Would proceed using ibuprofen with caution as this can further cause problems with your GI tract. Would discuss with your physician prior to resuming dicyclomine 10 mg Capsule 10 mg PO TIDAC Qty: 30 0RF Hold Instructions: Resume on 01/23/23. Hold unless otherwise instructed by your physician Discontinued polysaccharide iron complex [Ferrex 150] 150 mg iron capsule 150 mg PO DAILY 90 Days Qty: 90 3RF mesalamine 1.2 gram tablet,delayed release (DR/EC) 3.6 g PO DAILY Qty: 270 1RF Creon 36,000-114,000- 180,000 unit capsule,delayed release(DR/EC) See Rx Instructions PO .COMPLEX Qty: 540 1RF Rx Instructions: take 1-2 with snacks and 2-3 with meals Voucher prednisone 20 mg tablet 20 mg PO BID Qty: 60 0RF potassium chloride 20 mEq tablet,ER particles/crystals 20 meq PO TID oseltamivir 75 mg Capsule 75 mg PO BID Qty: 7 0RF Rx Instructions: start this evening Referrals / Follow Up: Cb Morgan MD [Med Staff - Active Staff] - ( -Please follow-up with Dr. Morgan upon discharge. Please call their office to schedule hospital follow-up appointment upon discharge.) Levar Tran MD [Primary Care Provider] - Within 1 Week Disposition Disposition (needs filled in before D/C Order can be placed): Home, Self Care
--- NOTE | 2023-01-16 09:35 | PCM.DC.SUM ---
Providers Date of Admission: 01/11/23 Date of Discharge: 01/16/23 Primary Care Physician: Dr. Levar Tran MD Consultations 01/12/23 01:26 Consult: Oncology/Hematology Routine Consulting Provider: [facility] ([facility]) Reason for Consult: Immunotherapy colitis, recurrent diarrhea. 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 #Chronic anemia/Fe deficiency anemia #Hypertension #Severe Protein-Calorie Malnutrition #Anxiety and depression #Former tobacco use #GERD #SELENE per documentation Medications at Discharge Home Medications carboxymethylcellulose 0.5 %-glycerin 0.9 % eye drops 1 drp ophthalmic (eye) PRN PRN Dry Eye(S) 09/26/21 isosorbide mononitrate 30 mg tablet,extended release 24 hr 30 mg PO DAILY heart #30 tabs 06/18/22 ibuprofen 600 mg tablet 600 mg PO Q6H PRN Pain 06/29/22 aspirin 81 mg chewable tablet 81 mg PO DAILY heart health 07/04/22 bicalutamide 50 mg tablet 50 mg PO DAILY Hormone therapy 10/03/22 omeprazole 20 mg capsule,delayed release 20 mg PO DAILY GERD #30 caps 11/22/22 loperamide 2 mg capsule (Imodium A-D) 4 mg (2 x 2 mg) PO Q6H PRN Diarrhea #1 cap 11/25/22 metoprolol succinate 25 mg tablet,extended release 24 hr 25 mg PO DAILY BP 01/03/23 mirtazapine 15 mg tablet 15 mg PO QHS .Antidepressant 01/07/23 dicyclomine 10 mg capsule 10 mg PO TIDAC IBS #30 caps 01/10/23 ferrous sulfate 325 mg (65 mg iron) tablet (FeroSul) 325 mg PO TIDCM 30 days #90 tabs 01/16/23 prednisone 20 mg tablet 80 mg (4 x 20 mg) PO DAILY 14 days #56 tabs 01/16/23 Hospital Course Summary of Care Provided Minutes Spent on Discharge: 34 Hospital Course: 82-year-old male chronic left lower extremity mild lymphedema, metastatic prostate cancer and 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 Morgan on immunotherapy who presented 01/11/2023 with worsening diarrhea. He had developed immunotherapy colitis and was placed on prednisone however due to recurrent severe diarrhea he had a recent admission 01/07 - 01/10 and was discharged home however Re-presented again the following day with weakness and worsening diarrhea. Patient was given hydrocortisone 100 mg IV x1 and 2 L normal saline and was admitted. He was started on 30 mg IV twice daily of methylprednisolone, continued on fluids, oncology consulted. He had his diet adjusted per oncology recommendations, was continued on methylprednisone and he had Metamucil and increase iron supplementation. Patient slowly improved and the day prior to discharge/day of discharge had significant decrease in bowel movements and overnight had a bowel movement that was mostly formed. Patient feeling well and has no acute complaints. Discussed with Dr. Morgan, patient will be discharged on 80 mg of prednisone daily per his recommendations with plan for him to begin taper after follow-up with Dr. Morgan. Discharge instructions as followed:-You will be discharged on 80 mg of prednisone daily, at your follow-up appoint with Dr. Morgan he will instruct you on a taper for the steroid -Please follow-up with Dr. Morgan with oncology upon discharge. Please call their office to schedule hospital follow-up appointment upon discharge. -Your iron supplementation has been changed to ferrous sulfate increased to 3 times a day -Additionally was listed that you are taking potassium supplementation at home, your potassium has been well controlled and within normal limits here, would advise holding potassium supplementation unless otherwise instructed by your prescribing physician -Would also advise taking Metamucil 1 packet 3 times a day, Metamucil can be obtained [id number] - Would proceed using ibuprofen with caution as this can further cause problems with your GI tract. Would discuss with your physician prior to resuming -Please call your primary care provider's office upon discharge to schedule a hospital follow up within 1 week. -For any concerning signs or symptoms please call 911 or proceed to the nearest emergency department Physical Exam Narrative General: Alert, oriented, no apparent distress HEENT: Atraumatic, normocephalic Eyes: extraocular movements grossly intact Neck: Supple Respiratory: normal respiratory effort Cardiovascular: no edema appreciated GI: nondistended Extremities: Moving all extremities Neuro: No overt focal neurological deficits Psych: Cooperative Medical Records Data Medical Nutrition Assessment Dietitian: Malnutrition Criteria Met Start: 01/12/23 16:05 Freq: Status: Active Protocol: Document 01/14/23 14:36 LEANDRA (Rec: 01/14/23 14:36 SLA [id number]) Nutrition Malnutrition Evidence of Malnutrition Exists Yes Malnutrition (severe): Chronic Evidenced By Suboptimal Energy Intake ( Severe),Weight Loss (Severe) Clinical Problem Chronic Disease or Condition Related Malnutrition Etiology related to inadequate oral intake and increased energy expenditure of metastatic disease Signs/Symptoms as evidenced by 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 Status Active Problem Recommendation Dietitian Recommendations/Changes Continue Ensure Plus HP 120mL 4x/day with medpass, Discontinue Magic Cup w/ lunch and dinner and Beneprotein & yogurt w/ meals as pt trying to cut back on dairy. Continue with Regular diet d/t signs and symptoms of malnutrition. Pt wants SMALL PORTIONS. Will continue to monitor oral intakes and modify interventions as needed. Weight / BMI Weight Weight: 63.7 kg Body Mass Index (BMI) 21.2 ABG / Lab / Microbiology Data 01/15/23 06:22 01/16/23 06:07 Laboratory: Laboratory Results - last 24 hr 01/16/23 06:07: Sodium 134 L, Potassium 4.0, Chloride 104, Carbon Dioxide 25.0, Anion Gap 5, BUN 16, Creatinine 0.71, Estim Creat Clear Calc 49.54, Est GFR (MDRD) Af Amer 136, Est GFR (MDRD) Non-Af 112, BUN/Creatinine Ratio 22.5 H, Glucose 135 H, Calcium 8.1 L Microbiology: Microbiology 01/12/23 01:35 Stool Enteric Bacteriology - Final D/C Instructions Discharge Diet: Light diet - advance as tolerated Meaningful Use Info Meaningful Use Diagnoses (Choose all that apply): None applicable Discharge Plan Admission Admit Date/Time: 01/11/23 23:51 Primary Reason for Your Visit: Diarrhea Attending Provider: Cady Chao Primary Care Provider: Levar Tran Consulting Providers: Tatum Burns; Carlos Garsia; Cb Morgan; Chelsy Andrade; Saturnino Chua; Rylan Mustafa; Sandro Mclaughlin; Aiden Viera; Kusum Yun ARCHITECTURAL JOB CAPTAIN Instructions Patient Instructions: ED Diet Vomiting Diarrhea Additional Instructions / Restrictions: DISCHARGE INSTRUCTIONS PLEASE READ *Please take this with you to your next doctors appointment* -You will be discharged on 80 mg of prednisone daily, at your follow-up appoint with Dr. Morgan he will instruct you on a taper for the steroid -Please follow-up with Dr. Morgan with oncology upon discharge. Please call their office to schedule hospital follow-up appointment upon discharge. -Your iron supplementation has been changed to ferrous sulfate increased to 3 times a day -Additionally was listed that you are taking potassium supplementation at home, your potassium has been well controlled and within normal limits here, would advise holding potassium supplementation unless otherwise instructed by your prescribing physician -Would also advise taking Metamucil 1 packet 3 times a day, Metamucil can be obtained [id number] - Would proceed using ibuprofen with caution as this can further cause problems with your GI tract. Would discuss with your physician prior to resuming -Please call your primary care provider's office upon discharge to schedule a hospital follow up within 1 week. -For any concerning signs or symptoms please call 911 or proceed to the nearest emergency department Discharge Orders/Prescriptions Prescriptions: New ferrous sulfate [FeroSul] 325 mg (65 mg iron) Tablet 325 mg PO TIDCM 30 Days Qty: 90 0RF prednisone 20 mg tablet 80 mg PO DAILY 14 Days Qty: 56 0RF Rx Instructions: Take 80mg daily until your follow up with Dr. Morgan Continued carboxymethylcellulose-glycern 0.5-0.9 % drops 1 drp ophthalmic (eye) PRN PRN (Reason: Dry Eye(S)) Patient Comments: 1 drop into both eyes as directed isosorbide mononitrate 30 mg tablet extended release 24 hr 30 mg PO DAILY Qty: 30 11RF metoprolol succinate 25 mg tablet extended release 24 hr 25 mg PO DAILY aspirin 81 mg Tablet,Chewable 81 mg PO DAILY bicalutamide 50 mg tablet 50 mg PO DAILY Patient Comments: TAKE 1 TABLET BY MOUTHCONCE DAILY loperamide [Imodium A-D] 2 mg Capsule 4 mg PO Q6H PRN (Reason: Diarrhea) Qty: 1 0RF mirtazapine 15 mg tablet 15 mg PO QHS Patient Comments: Take 1 tablet by mouthEdaily at bedtime. omeprazole 20 mg capsule,delayed release(DR/EC) 20 mg PO DAILY Qty: 30 2RF Held ibuprofen 600 mg Tablet 600 mg PO Q6H PRN (Reason: Pain) Hold Instructions: Resume on 01/23/23. - Would proceed using ibuprofen with caution as this can further cause problems with your GI tract. Would discuss with your physician prior to resuming dicyclomine 10 mg Capsule 10 mg PO TIDAC Qty: 30 0RF Hold Instructions: Resume on 01/23/23. Hold unless otherwise instructed by your physician Discontinued polysaccharide iron complex [Ferrex 150] 150 mg iron capsule 150 mg PO DAILY 90 Days Qty: 90 3RF mesalamine 1.2 gram tablet,delayed release (DR/EC) 3.6 g PO DAILY Qty: 270 1RF Creon 36,000-114,000- 180,000 unit capsule,delayed release(DR/EC) See Rx Instructions PO .COMPLEX Qty: 540 1RF Rx Instructions: take 1-2 with snacks and 2-3 with meals Voucher prednisone 20 mg tablet 20 mg PO BID Qty: 60 0RF potassium chloride 20 mEq tablet,ER particles/crystals 20 meq PO TID oseltamivir 75 mg Capsule 75 mg PO BID Qty: 7 0RF Rx Instructions: start this evening Referrals / Follow Up: Cb Morgan MD [Med Staff - Active Staff] - ( -Please follow-up with Dr. Morgan upon discharge. Please call their office to schedule hospital follow-up appointment upon discharge.) Levar Tran MD [Primary Care Provider] - Within 1 Week Disposition Disposition (needs filled in before D/C Order can be placed): Home, Self Care Charges/Coding Visit Charges Inpatient E&M: 24968 Disch Hosp >30min
[2023-01-16] MEDS: Ferrous Sulfate 325 MG Tablet PO (09:40)
[2023-01-16] MEDS: Menthol/Lanolin/Calamine/Znox 113 GM Tube 1 APPLIC TOPICAL (09:40)
[2023-01-16] MEDS: Enoxaparin 40 MG/0.4 ML Syringe SC (09:40)
[2023-01-16] MEDS: Pantoprazole Sodium 20 MG Tablet PO (09:41)
[2023-01-16 09:42] VITALS: PULSE 85
[2023-01-16] MEDS: Metoprolol(XL)Succ 25 MG Tablet PO (09:42)
[2023-01-16] MEDS: Ensure Plus High Protein 120 ML LIQUID PO (09:44)
[2023-01-16] MEDS: Acetaminophen 500 MG Tablet PO (09:47)
--- NOTE | 2023-01-16 11:35 | CASEMGMT ---
RAMIRO CM into pt room, pt sitting up in chair. Pt states this is the best he has felt in weeks. Pt denies needing any services at home. Pt states he has the exercises from and will do them once he returns home. No further needs at this time.
[2023-01-16 13:11] VITALS: BP 118/67; PULSE 66; RESP 16; TEMP 36.5; O2SAT 95
--- NOTE | 2023-01-16 13:34 | PHA.DC.MR.R ---
Pharmacy [place] Med Reconciliation Pharmacy Service has performed discharge medication reconciliation for this patient. The patient's discharge medication list was reviewed for discrepancies and discrepancies were resolved. Medications at Discharge Home Medications carboxymethylcellulose 0.5 %-glycerin 0.9 % eye drops 1 drp ophthalmic (eye) PRN PRN Dry Eye(S) 09/26/21 isosorbide mononitrate 30 mg tablet,extended release 24 hr 30 mg PO DAILY heart #30 tabs 06/18/22 ibuprofen 600 mg tablet 600 mg PO Q6H PRN Pain 06/29/22 aspirin 81 mg chewable tablet 81 mg PO DAILY heart health 07/04/22 bicalutamide 50 mg tablet 50 mg PO DAILY Hormone therapy 10/03/22 omeprazole 20 mg capsule,delayed release 20 mg PO DAILY GERD #30 caps 11/22/22 loperamide 2 mg capsule (Imodium A-D) 4 mg (2 x 2 mg) PO Q6H PRN Diarrhea #1 cap 11/25/22 metoprolol succinate 25 mg tablet,extended release 24 hr 25 mg PO DAILY BP 01/03/23 mirtazapine 15 mg tablet 15 mg PO QHS .Antidepressant 01/07/23 dicyclomine 10 mg capsule 10 mg PO TIDAC IBS #30 caps 01/10/23 ferrous sulfate 325 mg (65 mg iron) tablet (FeroSul) 325 mg PO TIDCM 30 days #90 tabs 01/16/23 prednisone 20 mg tablet 80 mg (4 x 20 mg) PO DAILY 14 days #56 tabs 01/16/23
== END 2023-01-16 13:40 | disposition home or self-care (01) | DRG 393 ==
LOC: ED 23:56 → MS3 01-12 00:08
PROVIDERS: Admitting Provider Family Medicine; Emergency Provider Emergency Medicine; PCP Internal Medicine; Visit Provider Internal Medicine
DX: K52.1 Toxic gastroenteritis and colitis (principal); E43 Unspecified severe protein-calorie malnutrition; C79.51 Secondary malignant neoplasm of bone; E87.1 Hypo-osmolality and hyponatremia; R62.7 Adult failure to thrive; C61 Malignant neoplasm of prostate; C67.9 Malignant neoplasm of bladder, unspecified; E86.0 Dehydration; D50.9 Iron deficiency anemia, unspecified; I10 Essential (primary) hypertension; K21.9 Gastro-esophageal reflux disease without esophagitis; I25.10 Atherosclerotic heart disease of native coronary artery without angina pectoris; G47.33 Obstructive sleep apnea (adult) (pediatric); F32.A Depression, unspecified; Z87.891 Personal history of nicotine dependence; N32.9 Bladder disorder, unspecified; R45.86 Emotional lability; T45.1X5A Adverse effect of antineoplastic and immunosuppressive drugs, initial encounter; Z68.21 Body mass index [BMI] 21.0-21.9, adult
CPT/HCPCS: 36415; 80048; 80053; 82306; 82607; 83735; 84100; 85025; 87177; 87209; 87506; 94668; 97162; 97166; 97530; 97802; 99285; J7030

== ENCOUNTER → 2023-03-11 | Outpatient (CLI) | payer MEDICARE, OTHER, SELFPAY ==
--- NOTE | 2023-03-11 09:04 | NM_ITS ---
CLINICAL: 82-year-old male with history of primary prostate carcinoma. WHOLE BODY 99m Tc MDP RADIONUCLIDE BONE SCINTIGRAPHY COMPARISON: Previous whole body bone scintigraphy study dated 11/29/2022 FINDINGS: Following the intravenous administration of 24.8 mCi of 99m Tc MDP, whole body bone images reveal: 1. Both redefined and newly apparent uptake is noted in the appendicular and axial skeleton to include the right posterior lateral, anterolateral chest wall-rib, the second-fifth lumbar vertebra, the sacrum, the proximal-distal left femoral diaphysis, distal left femoral metaphysis, the distal right femoral diaphysis, the proximal-distal right tibial metaphysis and diaphysis, the proximal-distal left tibial diaphysis and metaphysis, right proximal humerus, the left maxilla. 2. Facilitated uptake remains apparent in the bilateral mid and forefoot, the acromioclavicular compartment of the right shoulder, sternoclavicular compartment of both shoulders, wrist articulations bilaterally. 3. The remaining skeletal structures are scintigraphically unremarkable with normal-appearing renal images and urinary bladder activity identified. NM/Bone Scan Whole Body IMPRESSION: 1. 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 2. 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 3. Overall compared to the previous examination dated 11/29/2022, there is interim metabolic progression of defined viable skeletal neoplastic disease. Electronically Signed: Dom White, at 22:52 EDT ,
== END | disposition home or self-care (01) ==
LOC: NM 09:03
PROVIDERS: PCP Internal Medicine; Referring Provider Internal Medicine Medical Oncology; Visit Provider Internal Medicine Medical Oncology
DX: C61 Malignant neoplasm of prostate (principal)
CPT/HCPCS: 78306; A9503

== ENCOUNTER → 2023-03-14 | Outpatient (CLI) | payer MEDICARE, OTHER, SELFPAY ==
--- NOTE | 2023-03-14 16:52 | CT_ITS ---
STUDY: CT CHEST, ABDOMEN T PELVIS WITH CONTRAST REASON FOR EXAM: Male, 82 years old. MONITOR PROSTATE CA RADIATION DOSAGE (If Supplied By Facility): CTDIvol = ( 14.30 ) mGy, DLP = ( 1024.35 ) mGycm TECHNIQUE: Transaxial imaging was performed following intravenous administration of IV 100mL Isovue-300. Multiplanar coronal and sagittal images were reformatted. Individualized dose optimization techniques were used for this CT. COMPARISON: CT chest dated 11/20/2022. FINDINGS: CHEST Previously seen right lateral subpleural lower lobe nodule again demonstrated, image 83, series 6 measuring 8.4 mm previously measuring 6 mm. Conglomerate of multiple nodules identified within the right lower lobe, images 68 through 79, largest measuring 7.8 mm which could represent metastatic process versus sequela of inflammation. There is no demonstrated pleural abnormality. There are calcifications of the coronary arteries. Otherwise normal cardiac size. Normal mediastinum. Normal hilar regions. Normal enhancement of the pulmonary arteries with no filling defect to suggest pulmonary embolus. There is atherosclerotic calcification of the aortic arch with tortuosity and elongation of the aortic arch and descending thoracic aorta. Multilevel degenerative disease of the spine, more severe through the lower thoracic spine. Upper abdominal structures are described in detail and the accompanying CT of the abdomen and pelvis report. ABDOMEN Lung bases as described indeterminant accompanying CT chest report. The visualized portions of the heart are within normal size with coronary artery calcifications. Normal liver. Normal gallbladder and extrahepatic biliary system. Normal spleen. Dilatation of the pancreatic duct up to 7.7 mm to the level of sphincter of [place], unchanged in the interval. Otherwise unremarkable pancreas. Normal bilateral adrenal glands. Normal right kidney. Normal left kidney. Normal visualized stomach. Intussusceptum appearance of a loop of small bowel in the upper pelvis, axial images of the through C1 with cephalad distention of several loops of small bowel to approximately 3.2 cm, cannot exclude early or partial small bowel obstruction. Mild thickening of the wall throughout the descending colon, distal sigmoid and rectum, cannot exclude distal colitis/proctitis. The appendix is visualized and appears normal. There is diffuse atherosclerotic calcification of the abdominal aorta with elongation and tortuosity, but without a demonstrated aneurysm. Normal inferior vena cava. Normal retroperitoneum. Normal abdominal wall. There are diffuse degenerative changes of the visualized lumbar spine. PELVIS Diffuse thickening of the wall throughout the urinary bladder with anterior calcification, unchanged. As described above, distention of several loops of small bowel in the upper pelvis noted. Borderline thickening of the wall throughout areas of the distal sigmoid, descending colon and rectum may indicate focal colitis/proctitis. There is no pelvic fluid. There is no pelvic lymphadenopathy or mass lesion. There is diffuse atherosclerotic calcification of the pelvic arteries. Normal abdominal wall. There are diffuse degenerative changes of the visualized lumbar spine. There is sclerotic lesion through the left inferior pubic ramus extending to the left pubic bone anteriorly, unchanged. Stable sclerotic lesion within the posterior/arch of the right ninth rib. CT/CT Chest, Abd, Pel w/Contrast IMPRESSION: Slight increase in size in the right lower lobe nodule and adjacent new interval appearance of conglomerate of small nodules, cannot exclude new or progression of disease. Suggestion of intussusception involving an upper pelvic small bowel loops with several cephalad small bowel dilatation, cannot exclude mild or early small bowel obstruction. These findings are new in the interval. Possible mild descending colitis/proctitis. No distinct parenchymal lesion to suggest visceral metastases. Degenerative disease of the spine. Sclerotic lesions within the right ninth rib and within the left inferior pubic ramus. No new sites of bony lesion seen. Electronically Signed: Amanda Esposito MD at 19:47 EDT ,
== END | disposition home or self-care (01) ==
LOC: CT 16:35
PROVIDERS: PCP Internal Medicine; Referring Provider Internal Medicine Medical Oncology; Visit Provider Internal Medicine Medical Oncology
DX: C61 Malignant neoplasm of prostate (principal)
CPT/HCPCS: 71260; 74177; Q9967

== ENCOUNTER 2023-03-15 11:54 | Emergency (ER) | payer MEDICARE, OTHER, SELFPAY ==
[2023-03-15 11:55] VITALS: BP 143/86; PULSE 69; RESP 18; TEMP 36.6; O2SAT 96; BMI 23.1
[2023-03-15 14:41] LABS: Absolute Neutrophil Count 4.7 X10^3/uL (2.0-7.7); Basophil# 0.03 X10^3/uL; Basophil% 0.4 % (0-1); Eosinophil# 0.01 X10^3/uL; Eosinophils% 0.1 % (0-5); Hematocrit 34.5 % (40-54); Hemoglobin 11.3 g/dL (13.0-16.5); Lymphocyte % 26.8 % (19-41); Mean Corp Hgb Conc 32.8 g/dL (32-36); Mean Corpuscular Hgb 30.6 pg (27.0-32.0); Mean Corpuscular Volume 93.5 fL (80-94); Mean Platelet Vol. 9.8 fl (6.2-12.0); Monocyte# 0.62 X10^3/uL; Monocyte% 8.3 % (0-10); NRBC Flagged by Analyzer 0 % (0-5); Neutrophil # 4.73 X10^3/uL (2.7-7.7); Neutrophil % 63.6 % (47-70); Platelet Count 199 K/mm3 (150-450); RBC Distribution Width CV 15.3 % (11.6-14.6); RBC Distribution Width SD 53.1 fl (35.1-43.9); Red Blood Count 3.69 M/mm3 (4.6-6.2); White Blood Count 7.5 K/mm3 (4.4-11.0)
[2023-03-15 15:02] LABS: ALB/GLOB Ratio 0.9 RATIO (0.9-2.4); AST(SGOT) 36 U/L (15-37); Alanine Aminotransfer ALT/SGPT 13 U/L (16-61); Albumin, Serum 3.1 g/dL (3.2-5.0); Alkaline Phosphatase 418 U/L (45-117); Anion Gap 5 (5-15); BUN 13 mg/dL (7-18); BUN/Creat Ratio 16.4 RATIO (10-20); Chloride 105 mmol/L (98-107); Creatinine, Serum 0.79 mg/dL (0.70-1.30); EST Glomerular Filtration Rate 99 mL/min (>60); Est Glom Filt Rate - Afr Amer 119 mL/min (>60); Globulin 3.6 g/dL (2.2-4.2); Glucose 103 mg/dL (74-106); Potassium 3.6 mmol/L (3.5-5.1); Protein, Total 6.7 g/dL (6.4-8.2); Sodium Level 137 mmol/L (136-145)
--- NOTE | 2023-03-15 15:02 | EDS_ITS ---
HPI History of Present Illness Chief Complaint: Abd Pain Detail of Chief Complaint: Abnormal CAT scan not abdominal pain Informant: patient, spouse/S.O. and other (Oncologist) Onset/Context/Timing Onset: - (Detailed in the HPI narrative) Context: - (Detailed in the HPI narrative) Timing: Intermittent Quality: Patient had 1 episode of diarrhea approximately 0.5 to 1-hour after CAT sca Location: GI Current Severity: Gone Maximum Severity: Mild Worsened by: Believes it was due to the coleslaw he ate. Relieved by: Not applicable since it resolved on its own Associated Symptoms Associated Symptoms: None Narrative Narrative: Patient is an 82-year-old male with history of metastatic prostate cancer. Patient had a CT of the abdomen and pelvis yesterday with IV contrast for staging and assessment of treatment. The CAT scan reveals evidence of colitis/proctitis as well as intussusception. There was concern for mild or early obstruction. Patient reported the 1 episode of diarrhea. There was no blood or mucus. He had no pain. He has had no pain for the past 48 hours. He denies nausea or vomiting. He denies feeling bloated. He had a bowel movement this morning. He has passed gas approximately 8 hours ago. He has no history of abdominal surgery. Does have history of metastatic prostate cancer. He he states yesterday he ate food that he normally does not because he has not had it in a while and he states he had a good appetite. Patient denies fever or chills. Patient denies back pain. Patient denies urologic symptoms. Patient denies orthostatic symptoms. The complaint of abdominal pain is inaccurate since patient states she has had no abdominal pain. Prior similar symptoms: No Recent Illness/Hospitalization: Yes [facility] Medical History Ambulates with cane Anemia Anorexia Anxiety Bladder disease Cardiology follow-up encounter Colitis Debility Depression Diarrhea Dilated pancreatic duct Dizziness Encounter for education Fatigue Former smoker History of echocardiogram History of edema History of pain when walking History of stress test Hypertension Hypokalemia Influenza B Left leg swelling Loss of hearing Lymphedema Mood altered Nonobstructive atherosclerosis of coronary artery Oral candidiasis Prostate disease Severe malnutrition Shortness of breath on exertion Sleep apnea Trigeminal nerve disease Vomiting Wears glasses Home Medications carboxymethylcellulose 0.5 %-glycerin 0.9 % eye drops 1 drp ophthalmic (eye) PRN PRN Dry Eye(S) 09/26/21 [History Last Taken 01/06/23] isosorbide mononitrate 30 mg tablet,extended release 24 hr 30 mg PO DAILY heart #30 tabs 06/18/22 [Rx Last Taken 01/06/23] ibuprofen 600 mg tablet 600 mg PO Q6H PRN Pain 06/29/22 [History Last Taken Unknown] aspirin 81 mg chewable tablet 81 mg PO DAILY heart health 07/04/22 [History Last Taken 01/06/23] bicalutamide 50 mg tablet 50 mg PO DAILY Hormone therapy 10/03/22 [History Last Taken 01/06/23] omeprazole 20 mg capsule,delayed release 20 mg PO DAILY GERD #30 caps 11/22/22 [Rx Last Taken 01/06/23] loperamide 2 mg capsule (Imodium A-D) 4 mg (2 x 2 mg) PO Q6H PRN Diarrhea #1 cap 11/25/22 [Rx Last Taken Unknown] metoprolol succinate 25 mg tablet,extended release 24 hr 25 mg PO DAILY BP 01/03/23 [History Last Taken 01/06/23] mirtazapine 15 mg tablet 15 mg PO QHS .Antidepressant 01/07/23 [History Last Taken 01/06/23] dicyclomine 10 mg capsule 10 mg PO TIDAC IBS #30 caps 01/10/23 [Rx Last Taken Unknown] ferrous sulfate 325 mg (65 mg iron) tablet (FeroSul) 325 mg PO TIDCM 30 days #90 tabs 01/16/23 [Rx Last Taken Unknown] calcium carbonate 600 mg calcium (1,500 mg) tablet (Calcium) 600 mg PO DAILY 01/17/23 [History Last Taken Unknown] potassium chloride 20 mEq tablet,extended release 20 meq PO DAILY #30 tabs 02/04/23 [Rx Last Taken Unknown] prednisone 20 mg tablet 20 mg PO DAILY #30 tabs 02/07/23 [Rx Last Taken Unknown] amoxicillin 875 mg-potassium clavulanate 125 mg tablet 875 mg (0.875 x 875-125 mg) PO Q12H #14 TABLETS 03/15/23 [Rx Last Taken Unknown] Allergy/AdvReac Type Severity Reaction Status Date / Time No Known Allergies Allergy Verified 03/15/23 11:57 Family History Sister Heart disease Mother No problems noted. Father Cancer Surgical History History of left heart catheterization (10/03/21) Hx of colonoscopy Hx of left cataract extraction Hx of right cataract extraction Hx of transurethral resection of prostate Social History household members: spouse and family Smoking Status: Former smoker quit date: 07/15/82 pack-years: 25 alcohol intake: current alcohol intake frequency: holidays/special occasions only Alcohol type: beer substance use type: does not use caffeine: Yes Type: coffee Number of servings: 2 ROS ROS ED Constitutional Constitutional ED: Reports weight loss; Denies chills, fever(s), subjective or sweats Eyes Eyes: Denies blurry vision, change in vision or diplopia ENT ENT ED: Denies ear pain, rhinorrhea or sore throat Cardiovascular Cardiovascular: Reports other Details: Patient denies orthostatic symptoms. ; Denies chest pain or palpitations Respiratory/Chest Respiratory/Chest: Denies cough, dyspnea or dyspnea on exertion Gastrointestinal Gastrointestinal: Reports diarrhea and other Details: Denies feeling bloated or abdominal distention. ; Denies abdominal pain, constipation, melena, nausea or vomiting Genitourinary Genitourinary ED: Denies dysuria, hematuria or urinary frequency Musculoskeletal Musculoskeletal: Denies arthralgias or myalgias Integumentary Denies rash Neurologic Neurologic: Denies headache(s) Psychiatric Psychiatric: Denies anxiety Endocrine Endocrinology: Denies cold intolerance or heat intolerance Hematologic/Lymphatic Hematologic/Lymphatic: Reports systems reviewed and no addt'l complaints, except as documented Allergic/Immunologic Allergic/Immunologic ED: Denies mouth swelling or tongue swelling EXAM Physical Exam Const Vital Signs: 03/15/23 11:55 Temperature 97.8 F Temperature Source Temporal Pulse Rate 69 Respiratory Rate 18 Blood Pressure 143/86 H Blood Pressure Mean 105 Pulse Ox 96 Oxygen Delivery Method Room Air Positive well nourished and well developed; Negative for unkempt General Appearance ED: well developed; Negative for unkempt, cyanotic, diaphoretic or NAD HEENT Reports moist mucous membranes HEENT Narrative: Head is atraumatic and normocephalic. Ears are normal. Nares are patent. Posterior pharynx is normal. Eyes PERRL and EOMs intact bilaterally General Eye ED: Negative for pale conjunctiva or scleral icterus Neck no lymphadenopathy, supple and no JVD Chest Wall inspection of chest normal and palpation of chest normal Resp normal respiratory effort and clear to auscultation bilaterally Cardio regular rate, regular rhythm, S1 normal heart sound, S2 normal heart sound and no murmurs GI normal to inspection, nondistended, normoactive bowel sounds, non-tender, non- distended and no masses; Negative for hepatosplenomegaly GI Narrative: There is no tympany to percussion. There is no abdominal bruit. Palpation: soft Back/Spine no CVA tenderness Extremity normal to inspection General Extremety ED: Negative for edema or tenderness General Extremity: Negative for edema Neuro oriented x3, CN's II-XII intact bilaterally and no sensory deficits noted Sensorium / Orientation: alert Motor Exam: strength 5/5 throughout Psych mental status grossly normal Appearance: Negative for unkempt Skin no rashes or lesions noted, no wounds and No skin turgor normal General Skin Exam: Negative for elasticity normal or jaundice [facility] MDM Narrative Medical decision making narrative: With patient having a benign abdomen will obtain blood work to determine his white count and differential. Also will assess renal function and electrolyte's. White count is normal with a normal differential. Patient has mild anemia with normal indices. Comprehensive metabolic panel is remarkable for an elevated alkaline phosphatase. This is due to his metastasis to bone. History & Record Review Additional record(s) reviewed:: Prior outpatient record, Prior ED visit, Prior labs and Other (Patient's oncologist did call prior to patient's arrival.) Lab Data Attestation: I reviewed the patient's lab results. Lab results narrative: Crepitation dictated under the MDM narrative. Labs: Laboratory Results - last 24 hr 03/15/23 13:41 WBC 7.5 RBC 3.69 L Hgb 11.3 L Hct 34.5 L MCV 93.5 MCH 30.6 MCHC 32.8 RDW Std Deviation 53.1 H RDW Coeff of Jagjit 15.3 H Plt Count 199 MPV 9.8 Immature Gran % (Auto) 0.800 Neut % (Auto) 63.6 Lymph % (Auto) 26.8 [place] % (Auto) 8.3 Eos % (Auto) 0.1 Baso % (Auto) 0.4 Absolute Neuts (auto) 4.7 Absolute Lymphs (auto) 2.00 Nucleated RBC % 0 Sodium 137 Potassium 3.6 Chloride 105 Carbon Dioxide 27.0 Anion Gap 5 BUN 13 Creatinine 0.79 Estim Creat Clear Calc 53.20 Est GFR (MDRD) Af Amer 119 Est GFR (MDRD) Non-Af 99 BUN/Creatinine Ratio 16.4 Glucose 103 Calcium 9.0 Total Bilirubin 0.40 AST 36 ALT 13 L Alkaline Phosphatase 418 H Total Protein 6.7 Albumin 3.1 L Globulin 3.6 Albumin/Globulin Ratio 0.9 Management Discussion w/another healthcare provider: Integration Director (The oncologist was paged. Case was discussed with Dr. Cb Morgan patient's oncologist. Plan is antibiotics and discharged home.) Discharge Plan Triage Chief Complaint: Abd Pain ED Provider: Jomar Johnson Dx/Rx/DC Orders Clinical Impression: Bladder cancer metastasized to bone, Colitis, Iron deficiency Instructions: ED Understanding Colitis Prescriptions: New amoxicillin-pot clavulanate [amoxicillin-pot clavulanate] 875-125 mg tablet 875 mg PO Q12H Qty: 14 0RF No Action carboxymethylcellulose-glycern 0.5-0.9 % drops 1 drp ophthalmic (eye) PRN PRN (Reason: Dry Eye(S)) Patient Comments: 1 drop into both eyes as directed isosorbide mononitrate 30 mg tablet extended release 24 hr 30 mg PO DAILY Qty: 30 11RF metoprolol succinate 25 mg tablet extended release 24 hr 25 mg PO DAILY calcium carbonate [Calcium 600] 600 mg calcium (1,500 mg) tablet 600 mg PO DAILY prednisone 20 mg tablet 20 mg PO DAILY Qty: 30 0RF ibuprofen 600 mg Tablet 600 mg PO Q6H PRN (Reason: Pain) Hold Instructions: Resume on 01/23/23. - Would proceed using ibuprofen with caution as this can further cause problems with your GI tract. Would discuss with your physician prior to resuming aspirin 81 mg Tablet,Chewable 81 mg PO DAILY bicalutamide 50 mg tablet 50 mg PO DAILY Patient Comments: TAKE 1 TABLET BY MOUTHCONCE DAILY loperamide [Imodium A-D] 2 mg Capsule 4 mg PO Q6H PRN (Reason: Diarrhea) Qty: 1 0RF mirtazapine 15 mg tablet 15 mg PO QHS Patient Comments: Take 1 tablet by mouthEdaily at bedtime. dicyclomine 10 mg Capsule 10 mg PO TIDAC Qty: 30 0RF Hold Instructions: Resume on 01/23/23. Hold unless otherwise instructed by your physician ferrous sulfate [FeroSul] 325 mg (65 mg iron) Tablet 325 mg PO TIDCM 30 Days Qty: 90 0RF omeprazole 20 mg capsule,delayed release(DR/EC) 20 mg PO DAILY Qty: 30 2RF potassium chloride 20 mEq tablet extended release 20 meq PO DAILY Qty: 30 1RF Primary Care Provider: Levar Tran Referrals: Levar Tran MD [Primary Care Provider] - 5-7 Days Cb Morgan MD [Med Staff - Active Staff] - As Needed Disposition Disposition: Home, Self Care
== END 2023-03-15 15:42 | disposition home or self-care (01) ==
PROVIDERS: Emergency Provider Emergency Medicine; PCP Internal Medicine; Visit Provider Emergency Medicine
DX: C67.9 Malignant neoplasm of bladder, unspecified (principal); C79.51 Secondary malignant neoplasm of bone; I25.10 Atherosclerotic heart disease of native coronary artery without angina pectoris; I10 Essential (primary) hypertension; E61.1 Iron deficiency; Z87.891 Personal history of nicotine dependence; K52.9 Noninfective gastroenteritis and colitis, unspecified; Z79.899 Other long term (current) drug therapy; Z79.82 Long term (current) use of aspirin; F32.A Depression, unspecified; Z98.41 Cataract extraction status, right eye; Z98.42 Cataract extraction status, left eye
CPT/HCPCS: 80053; 85025; 99283